=== PATIENT | female | born 1995 | race Caucasian/White ===

== ENCOUNTER 2020-10-28 21:04 | Emergency (ER) | payer MEDICAID, SELFPAY ==
--- NOTE | ~2020-10-28 | XR_ITS ---
EXAMINATION: XR CHEST CLINICAL INFORMATION: Chest pain status post vomiting COMPARISON: 03/30/2012 TECHNIQUE: Frontal view of the chest was obtained. FINDINGS: No significant abnormality is noted involving the heart, lungs, mediastinum, bony thorax or soft tissues. XR/XR chest 1V IMPRESSION: Unremarkable examination.
[2020-10-28 21:07] VITALS: BP 127/68; PULSE 120; RESP 18; TEMP 36.4; O2SAT 100; BMI 31.1
[2020-10-28 22:05] VITALS: BP 113/73; PULSE 94; RESP 22; TEMP 37.1; O2SAT 99
--- NOTE | 2020-10-28 22:22 | ED.ALLEREA ---
HPI - Allergic Reaction General Chief complaint: Allergic Reaction Stated complaint: allergic reaction to vape pen Time Seen by Provider: 10/28/20 22:22 Source: patient Mode of arrival: ambulatory Limitations: no limitations History of Present Illness HPI narrative: 25 y/o female presenting with vomiting and chest tingling after she used a vape pen about 2 hours ago. She states immediately after she inhaled she coughed excessively and felt nauseated. She went and threw up 4 times. She has tingling in her face, chest and neck and she generally felt unwell. She does not vape very often but she has never had a reaction like this before. No one else smoked this vape pen. It was a new flavor and new concentration. She denies any other drug use. MD complaint: allergic reaction Onset (ago): hour(s) (2) Exposure: other (marijuana vape pen) Symptoms: nausea and vomiting Severity: moderate Treatment prior to arrival: none Previous Allergic Reaction History: none Related Data Allergies Allergy/AdvReac Type Severity Reaction Status Date / Time No Known Allergies Allergy Verified 10/28/20 22:47 Review of Systems Review of Systems: Constitutional: No Fever, No Chills ENT/Mouth: No sore throat, No Rhinorrhea, No Swallowing Difficulty Eyes: No Eye Pain, No Swelling, + Redness Cardiovascular: + Chest Pain, + SOB, No Orthopnea, No Edema Respiratory: No Cough, No Sputum, No Wheezing, No dyspnea Gastrointestinal: + Nausea, + Vomiting, No Diarrhea, No abdominal Pain Musculoskeletal: No joint pain, No Myalgias Skin: No Skin Lesions, No rash Neuro: No Weakness, No Numbness, No Dizziness, + Headache Psych: + Anxiety/Panic, No Depression Heme/Lymph: No Bruising, No Lymphadenopathy Endocrine: No Polyuria, No Polydipsia PMFSH Past Medical History Attestation statement: The following information was validated with the patient. Medical History No acute medical problems Social History Social History Alcohol intake: never Patient Tobacco Use Status: Never used Tobacco Use of substances other than those prescribed or required for medical reasons: Yes Substance Use Type: Marijuana Advance Directives: No Advance Directives Information Provided: No Patient : No Physical Exam Vital Signs: Vital Signs: Last Vital Signs Temp 98.8 F 10/28/20 22:05 Pulse 100 06/20/21 22:43 Resp 16 10/28/20 22:43 BP 103/65 10/28/20 22:43 Pulse Ox 100 10/28/20 22:43 Body Mass Index 31.1 Appearance: Alert. Oriented X3. No acute distress. Eyes: Pupils equal, round and reactive to light. Sclera are injected ENT: Pharynx normal. Neck: Normal inspection. Neck supple. CVS: Normal heart rate and rhythm. Pulses normal. Anterior chest wall tenderness throughout Respiratory: No respiratory distress. Breath sounds normal. Abdomen: Soft and nontender. +BS x4 Skin: Skin warm and dry. Normal skin color. Normal skin turgor. No rashes. Extremities: No lower extremity edema. Neuro: Oriented X 3. No motor deficit. No sensory deficit. Course Course Course Narrative: 25 y/o female presenting with N/V and chest pain that started immediately after she smoked a new vape pen called [employer]. Her symptoms are starting to improve. She is non-toxic appearing and speaking in full sentences. She reports some ongoing chest discomfort and headache. mild nausea. Will get CXR and give dose of SL zofran and tylenol. Will closely monitor and reassess. Reevaluation(s) Reevaluation #1: Symptomatically significantly improved. She is stable for discharge home. Counseled on marijuana use. Discharge Plan Discharge Clinical Impression: Adverse reaction to drug Qualifiers: Encounter type: initial encounter Qualified Code(s): T50.905A - Adverse effect of unspecified drugs, medicaments and biological substances, initial encounter Patient Disposition: Home, Self-Care Additional Instructions: Your chest x-ray was normal. Your symptoms are a direct results of the vape pen. Strongly advise against using this again in the future. Follow up with your doctor as needed.
[2020-10-28 22:43] VITALS: BP 103/65; PULSE 100; RESP 16; O2SAT 100
[2020-10-28 23:54] VITALS: BP 105/67; PULSE 97; RESP 16; O2SAT 99
== END 2020-10-29 00:15 | disposition home or self-care (01) ==
PROVIDERS: Emergency Provider Student in an Organized Health Care Education/Training Program
DX: U07.0 Vaping-related disorder (principal); R11.2 Nausea with vomiting, unspecified; F12.90 Cannabis use, unspecified, uncomplicated
CPT/HCPCS: 71045; 99283; 99284

== ENCOUNTER 2021-06-11 09:32 | Emergency (ER) | payer MEDICAID, SELFPAY ==
--- NOTE | ~2021-06-11 | XR_ITS ---
EXAMINATION: XR CHEST CLINICAL INFORMATION: Chest pain COMPARISON: None TECHNIQUE: 2 views of the chest were obtained. FINDINGS: No significant abnormality is noted involving the heart, lungs, mediastinum, bony thorax or soft tissues. XR/XR chest 2V IMPRESSION: Unremarkable chest examination.
--- NOTE | 2021-06-11 09:33 | ECG_ITS ---
Test Reason : chest pain Blood Pressure : / mmHG Vent. Rate : 089 BPM Atrial Rate : 089 BPM P-R Int : 148 ms QRS Dur : 082 ms QT Int : 380 ms P-R-T Axes : 064 054 073 degrees QTc Int : 462 ms Normal sinus rhythm Normal ECG No significant changes when compared with the previous EKG of 15 july 2016 Referred By: Generic ED Physician Electronically Signed By:CECILIA FREED
[2021-06-11 10:44] VITALS: BP 110/72; PULSE 85; RESP 18; TEMP 36.5; O2SAT 98; BMI 28.2
[2021-06-11 10:58] LABS: MANUAL DIFF FLAG NO
[2021-06-11 11:01] LABS: Basophils Absolute Auto 0.1 X10*3/uL (0.0-0.2); Basophils Percent Auto 0.8 % (0-2); Eosinophils Absolute Auto 0.1 X10*3/uL (0.0-0.4); Eosinophils Percent Auto 1.5 % (0-4); Hematocrit 40.3 % (37.0-47.0); Hemoglobin 13.7 g/dl (12.0-16.0); Imm Gran Abs Auto 0.01 X10*3/uL (0.00-0.03); Imm Gran Pct Auto 0.2 % (0.0-0.4); Lymphocytes Absolute Auto 1.9 X10*3/uL (1.2-4.9); Lymphocytes Percent Auto 30.7 % (20-40); Mean Corpuscular Hemoglobin 29.3 pg (27.0-33.0); Mean Corpuscular Volume 86.3 fL (80.0-98.0); Mean Platelet Volume 11.2 fL (9.4-12.3); Monocytes Absolute Auto 0.6 X10*3/uL (0.1-1.2); Monocytes Percent Auto 9.6 % (2-11); Neutrophils Absolute Auto 3.5 x10*3/uL (2.0-8.3); Neutrophils Percent Auto 57.2 % (45-73); Platelet Count 219 X10*3/uL (160-400); Red Blood Count 4.67 X10*6/uL (4.20-5.50); Red Cell Distribution Width 12.3 % (11.0-16.0); White Blood Count 6.1 X10*3/uL (4.8-10.8)
[2021-06-11 11:19] LABS: COVID-19 Test Negative (Negative); IDNOW Serial# 9DD0AD1C; Troponin-I High Sensitivity < 3.5 ng/L (<3.5-17.0)
[2021-06-11 11:24] LABS: Alanine Aminotransferase 8 U/L (0-31); Alkaline Phosphatase 81 U/L (39-117); Anion Gap 9 (12-20); Aspartate Amino Transferase 21 U/L (5-31); Bilirubin Total 0.5 mg/dL (0.0-1.0); Blood Urea Nitrogen 6 mg/dL (9-16); Calcium 9.5 mg/dL (8.4-10.2); Carbon Dioxide 27 mmol/L (22-29); Chloride 107 mmol/L (96-108); Creatinine Clr Calc Pharmacy 120.7; Estimated Glomerular Filt Rate > 60; Glucose Random 91 mg/dL (60-115); Potassium 5.8 mmol/L (3.3-5.1); Sodium 137 mmol/L (135-145); Total Protein 7.9 g/dL (6.5-8.0)
--- NOTE | 2021-06-11 13:41 | ED_ITS ---
HPI - Chest Pain General Chief Complaint: Chest Pain Stated Complaint: CHEST PAIN Time Seen by Provider: 06/11/21 13:35 Source: patient Mode of arrival: ambulatory Limitations: no limitations History of Present Illness HPI narrative: Patient presents to ED for chest pain, also pleurisy described as chest pain on inspiration since yesterday. patient denies any coughing, fever, chills, leg swelling, calf pain, recent long travel, or having covid. patient states received covid vaccines including booster. Related Data Allergies Allergy/AdvReac Type Severity Reaction Status Date / Time No Known Allergies Allergy Verified 06/11/21 10:44 Review of Systems Verdana 4l Review of Systems: Verdana 4d chest wall pain. 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 Social History Social History Alcohol intake: never Patient Tobacco Use Status: Never used Tobacco Substance Use Type: Marijuana Advance Directives: No Advance Directives Information Provided: Yes Physical Exam Verdana 4l Vital Signs: Verdana 4d Verdana 4d Vital Signs: Verdana 4d Verdana 4Bd Last Vital Signs Verdana 4d [employer] New 4d [employer]orer New 4d Temp 98.3 F 06/11/21 14:08 [employer] New 4d Pulse 83 06/11/21 14:08 [employer] New 4d Resp 18 06/11/21 14:08 BP 110/78 06/11/21 14:08 Pulse Ox 100 06/11/21 14:08 BMI result Body Mass Index 28.2 Const: General: cooperative, healthy appearing, comfortable, no acute distress, well developed, alert, awake and Physically active Orientation/consciousness: patient oriented x3 HENMT: Head: Yes normal to inspection, Yes No palpable skull fracture present, Yes normocephalic, Yes atraumatic and No abrasion Eyes: General: appearance normal, both eyes and all related structures Neck: Neck: Yes normal visual inspection, Yes full ROM, Yes no lymphadenopathy, Yes no meningeal signs, Yes trachea midline, Yes supple, No anterior neck swelling and No tender Chest: Chest palpation & inspection: normal inspection of the chest Chest/axillae images: 1. positive for chest wall tenderness on palpation. negative for rash, ecchymosis, or crepitus Resp: Effort & Inspection: normal respiratory effort and able to speak in complete sentences Auscultation: clear to auscultation bilaterally Cardio: Jugular venous distension: no JVD Heart sounds: S1 normal heart sound present and S2 normal heart sound present GI: Inspection: Yes normal to inspection Palpation (GI): not firm, nontender, no guarding and not rigid : General: No CVA tenderness and Yes no CVA tenderness Back/Spine/Pelvis: Back: no CVA tenderness, No CVA tenderness and No back tenderness Skin: General skin exam: no rashes or lesions noted and elasticity normal Neuro: General: patient oriented x3, gait normal, no meningeal signs and CN's II-XI intact bilaterally Cranial nerves: Yes CN's II-XII intact bilaterally Extrem: General: Yes normal to inspection and Yes full ROM Psych: Appearance: grossly normal, well kempt and not disheveled Course Course Course Narrative: labs, EKG, chest xray, and covid ordered. Reevaluation(s) Reevaluation #1: Patient EKG, troponin, covid, chest xray, and D-dimer is negative. Perc Score is 0. Heart Score is 0. Patient is safe for discharge. Vital signs are stable. Diagnosis is costochondirits. Time: 18:50 MDM - Chest Pain MDM Narrative Medical decision making narrative: Costochondirits Lab Data Result diagrams: 06/11/21 10:52 06/11/21 14:06 Labs: Lab Results 06/11/21 06/11/21 06/11/21 Range/Units 10:52 10:52 10:52 WBC 6.1 (4.8-10.8) X10*3/uL RBC 4.67 (4.20-5.50) X10*6/uL Hgb 13.7 (12.0-16.0) g/dl Hct 40.3 (37.0-47.0) % MCV 86.3 (80.0-98.0) fL MCH 29.3 (27.0-33.0) pg MCHC 34.0 (31.0-35.0) g/dl RDW 12.3 (11.0-16.0) % Plt Count 219 (160-400) X10*3/uL MPV 11.2 (9.4-12.3) fL Immature Gran % (Auto) 0.2 (0.0-0.4) % Neut % (Auto) 57.2 (45-73) % Lymph % (Auto) 30.7 (20-40) % Pender % (Auto) 9.6 (2-11) % Eos % (Auto) 1.5 (0-4) % Baso % (Auto) 0.8 (0-2) % Lymph # (Auto) 1.9 (1.2-4.9) X10*3/uL Pender # (Auto) 0.6 (0.1-1.2) X10*3/uL Eos # (Auto) 0.1 (0.0-0.4) X10*3/uL Baso # (Auto) 0.1 (0.0-0.2) X10*3/uL Abs Immat Gran (auto) 0.01 (0.00-0.03) X10*3/uL Absolute Neuts (auto) 3.5 (2.0-8.3) x10*3/uL Absolute Nucleated RBC 0.000 (0.0-0.012) X10*3/uL Nucleated RBC % (auto) 0.0 (0.0-0.2) /100WBC PT (9.9-13.0) SEC INR (0.9-1.1) APTT (24.1-38.0) SEC D-Dimer High Sensitivty NG/ML Sodium 137 (135-145) mmol/L Potassium 5.8 H (3.3-5.1) mmol/L Chloride 107 (96-108) mmol/L Carbon Dioxide 27 (22-29) mmol/L Anion Gap 9 L (12-20) BUN 6 L (9-16) mg/dL Creatinine 0.77 (0.5-1.4) mg/dL Estim Creat Clear Calc 120.7 Estimated GFR > 60 Random Glucose 91 (60-115) mg/dL Calcium 9.5 (8.4-10.2) mg/dL Total Bilirubin 0.5 (0.0-1.0) mg/dL AST 21 (5-31) U/L ALT 8 (0-31) U/L Alkaline Phosphatase 81 (39-117) U/L Troponin I High Sens < 3.5 (<3.5-17.0) ng/L Total Protein 7.9 (6.5-8.0) g/dL Albumin 4.0 (3.5-5.0) g/dL COVID-19 ([facility]) (Negative) COVID-19 Clin Com 06/11/21 06/11/21 06/11/21 Range/Units 10:52 14:06 14:06 WBC (4.8-10.8) X10*3/uL RBC (4.20-5.50) X10*6/uL Hgb (12.0-16.0) g/dl Hct (37.0-47.0) % MCV (80.0-98.0) fL MCH (27.0-33.0) pg MCHC (31.0-35.0) g/dl RDW (11.0-16.0) % Plt Count (160-400) X10*3/uL MPV (9.4-12.3) fL Immature Gran % (Auto) (0.0-0.4) % Neut % (Auto) (45-73) % Lymph % (Auto) (20-40) % Pender % (Auto) (2-11) % Eos % (Auto) (0-4) % Baso % (Auto) (0-2) % Lymph # (Auto) (1.2-4.9) X10*3/uL Pender # (Auto) (0.1-1.2) X10*3/uL Eos # (Auto) (0.0-0.4) X10*3/uL Baso # (Auto) (0.0-0.2) X10*3/uL Abs Immat Gran (auto) (0.00-0.03) X10*3/uL Absolute Neuts (auto) (2.0-8.3) x10*3/uL Absolute Nucleated RBC (0.0-0.012) X10*3/uL Nucleated RBC % (auto) (0.0-0.2) /100WBC PT 12.6 (9.9-13.0) SEC INR 1.1 (0.9-1.1) APTT 33.5 (24.1-38.0) SEC D-Dimer High Sensitivty < 150 NG/ML Sodium (135-145) mmol/L Potassium 3.8 D (3.3-5.1) mmol/L Chloride (96-108) mmol/L Carbon Dioxide (22-29) mmol/L Anion Gap (12-20) BUN (9-16) mg/dL Creatinine (0.5-1.4) mg/dL Estim Creat Clear Calc Estimated GFR Random Glucose (60-115) mg/dL Calcium (8.4-10.2) mg/dL Total Bilirubin (0.0-1.0) mg/dL AST (5-31) U/L ALT (0-31) U/L Alkaline Phosphatase (39-117) U/L Troponin I High Sens (<3.5-17.0) ng/L Total Protein (6.5-8.0) g/dL Albumin (3.5-5.0) g/dL COVID-19 ([facility]) Negative (Negative) COVID-19 Clin Com See Note ECG Data ECG #1: Interpretation: Normal Sinus rhythm, VA interval 148, QRS 82, QTC is 462. negative stemi Discharge Plan Discharge Clinical Impression: Atypical chest pain, Pleurisy, Costochondral chest pain Patient Disposition: Home, Self-Care Instructions: Chest Pain (DC), Pleurisy (ED), Chest Wall Pain (ED) Additional Instructions: Your labs, EKG, chest xray, and covid came back normal. Return to the ED for worsening chest pain, shortness of breath, leg swelling, calf pain, coughing, up blood weakness, dizziness, or any other concerning symptoms. You can take motrin over the counter for chest wall pain. Please follow up with PCP. Stand Alone Forms: Work/School Release Discharge Date/Time: 06/11/21 15:55 Print Language: Urdu
[2021-06-11 14:08] VITALS: BP 110/78; PULSE 83; RESP 18; TEMP 36.8; O2SAT 100
[2021-06-11 14:20] LABS: INTERNATIONAL NORM RATIO 1.1 (0.9-1.1); Prothrombin Time 12.6 SEC (9.9-13.0)
[2021-06-11 14:22] LABS: Partial Thromboplastin Time 33.5 SEC (24.1-38.0); Potassium 3.8 mmol/L (3.3-5.1)
[2021-06-11 14:49] LABS: D Dimer High Sensitivity < 150 NG/ML
== END 2021-06-11 15:55 | disposition home or self-care (01) ==
PROVIDERS: Physician Assistant; Emergency Provider Emergency Medicine
DX: R07.89 Other chest pain (principal); R09.1 Pleurisy; M94.0 Chondrocostal junction syndrome [Tietze]; Z20.822 Contact with and (suspected) exposure to COVID-19
CPT/HCPCS: 36415; 71046; 80053; 84132; 84484; 85025; 85379; 85610; 85730; 87635; 93005; 99283

== ENCOUNTER 2021-08-08 07:10 | Emergency (ER) | payer MEDICAID, SELFPAY ==
[2021-08-08 07:16] VITALS: BP 129/71; PULSE 108; RESP 18; TEMP 37.7; O2SAT 97
[2021-08-08 07:39] LABS: Influenza A Negative (Negative); Influenza B2 Negative (Negative)
[2021-08-08 07:41] LABS: COVID-19 Test Negative (Negative); IDNOW Serial# 16C4AD1C
--- NOTE | 2021-08-08 07:48 | ED_ITS ---
HPI - General Adult General Chief complaint: Upper Respiratory Symptoms Stated complaint: Fever/Weakness Time Seen by Provider: 08/08/21 07:18 Source: patient Mode of arrival: ambulatory Limitations: no limitations History of Present Illness HPI narrative: Patient comes emergency room complaining of 1 day of nausea, vomiting, diarrhea, fever and chills. Patient denies coughing, no sore throat, no abdominal pain, no UTI symptoms Related Data Previous Rx's Medication Instructions Recorded ibuprofen 600 mg tablet 600 mg PO TID PRN #14 tab 08/08/21 ondansetron HCl 4 mg tablet 4 mg PO Q6H PRN #10 tab 08/08/21 Allergies Allergy/AdvReac Type Severity Reaction Status Date / Time No Known Allergies Allergy Verified 06/11/21 10:44 Review of Systems Review of Systems: Constitutional : No Weight loss, subjective fever, chills, No Night Sweats, No Fatigue, No Malaise ENT/Mouth : No Hearing loss, No Ear Pain, No Nasal Congestion, No Sinus Pain, No Hoarseness, No sore throat, No Rhinorrhea, No Swallowing Difficulty Eyes: No Eye Pain, No Swelling, No Redness, No Foreign Body, No Discharge, No Vision Changes Cardiovascular : No Chest Pain, No SOB, No Dyspnea on Exertion, No Orthopnea, No Edema, No Palpitations Respiratory : No Cough, No Sputum, No Wheezing, No Smoke Exposure, No Dyspnea Gastrointestinal : Complaining of nausea, vomiting and diarrhea. No Constipation, No abdominal Pain, No Hematochezia, No Melena Genitourinary : no irregular bleeding, No Dysuria, No Urinary Frequency, No Hematuria, No Urinary Incontinence, No Urgency, No Flank Pain, No Urinary Flow Changes, No Hesitancy Musculoskeletal : No joint pain, No Myalgias, No Joint Swelling Skin : No Skin Lesions, No rash Neuro : No Weakness, No Numbness, No Paresthesias, No Loss of Consciousness, No Dizziness, No Headache Psych : No Anxiety/Panic, No Depression, No SI/HI/AH/VH, No Social Issues, Heme/Lymph: No Bruising, No Bleeding,No Lymphadenopathy Endocrine : No Polyuria, No Polydipsia, No Temperature Intolerance [facility] Past Medical History 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 Oriented X3. No acute distress. Eyes: Pupils equal, round and reactive to light. ENT: Pharynx normal. Neck: Normal inspection. Neck supple. No lymph nodes noted. No crepitus CVS: Normal heart rate and rhythm. Pulses normal. Normal S1 and S2 Respiratory: No respiratory distress. Breath sounds normal. No Wheezing. No rales Abdomen: Soft and nontender. No rigidity. No distention. Skin: Skin warm and dry. Normal skin color. Normal skin turgor. Extremities: No lower extremity edema. No Lacerations. No Rash Neuro: Oriented X 3. No motor deficit. No sensory deficit. Moving all extremities. No slurred speech. CN 2 through 12 grossly intact Psych: calm, cooperative, normal affect Course Course Course Narrative: Flu/COVID test pending, CBC Chem pending, patient given p.o. Zofran and Tylenol Patient likely having a viral syndrome, no acute findings, flu and COVID test negative. test negative. Medical Decision Making Lab Data Result diagrams: 08/08/21 08:24 08/08/21 08:24 Labs: Lab Results 08/08/21 08/08/21 08/08/21 Range/Units 07:18 07:18 08:24 WBC 6.5 (4.8-10.8) X10*3/uL RBC 4.53 (4.20-5.50) X10*6/uL Hgb 13.4 (12.0-16.0) g/dl Hct 38.9 (37.0-47.0) % MCV 85.9 (80.0-98.0) fL MCH 29.6 (27.0-33.0) pg MCHC 34.4 (31.0-35.0) g/dl RDW 12.6 (11.0-16.0) % Plt Count 202 (160-400) X10*3/uL MPV 11.1 (9.4-12.3) fL Immature Gran % (Auto) 0.2 (0.0-0.4) % Neut % (Auto) 80.8 H (45-73) % Lymph % (Auto) 7.1 L (20-40) % Hancock % (Auto) 11.1 H (2-11) % Eos % (Auto) 0.2 (0-4) % Baso % (Auto) 0.6 (0-2) % Lymph # (Auto) 0.5 L (1.2-4.9) X10*3/uL Hancock # (Auto) 0.7 (0.1-1.2) X10*3/uL Eos # (Auto) 0.0 (0.0-0.4) X10*3/uL Baso # (Auto) 0.0 (0.0-0.2) X10*3/uL Abs Immat Gran (auto) 0.01 (0.00-0.03) X10*3/uL Absolute Neuts (auto) 5.2 (2.0-8.3) x10*3/uL Absolute Nucleated RBC 0.000 (0.0-0.012) X10*3/uL Nucleated RBC % (auto) 0.0 (0.0-0.2) /100WBC Sodium (135-145) mmol/L Potassium (3.3-5.1) mmol/L Chloride (96-108) mmol/L Carbon Dioxide (22-29) mmol/L Anion Gap (12-20) BUN (9-16) mg/dL Creatinine (0.5-1.4) mg/dL Estim Creat Clear Calc Estimated GFR Random Glucose (60-115) mg/dL Calcium (8.4-10.2) mg/dL Beta HCG, Quant mIU/mL COVID-19 ([facility]) Negative (Negative) COVID-19 Clin Com See Note Influenza Type A ([facility]) Negative (Negative) Influenza Type B ([facility]) Negative (Negative) Influenza A & B Note See Note 08/08/21 08/08/21 Range/Units 08:24 08:24 WBC (4.8-10.8) X10*3/uL RBC (4.20-5.50) X10*6/uL Hgb (12.0-16.0) g/dl Hct (37.0-47.0) % MCV (80.0-98.0) fL MCH (27.0-33.0) pg MCHC (31.0-35.0) g/dl RDW (11.0-16.0) % Plt Count (160-400) X10*3/uL MPV (9.4-12.3) fL Immature Gran % (Auto) (0.0-0.4) % Neut % (Auto) (45-73) % Lymph % (Auto) (20-40) % Hancock % (Auto) (2-11) % Eos % (Auto) (0-4) % Baso % (Auto) (0-2) % Lymph # (Auto) (1.2-4.9) X10*3/uL Hancock # (Auto) (0.1-1.2) X10*3/uL Eos # (Auto) (0.0-0.4) X10*3/uL Baso # (Auto) (0.0-0.2) X10*3/uL Abs Immat Gran (auto) (0.00-0.03) X10*3/uL Absolute Neuts (auto) (2.0-8.3) x10*3/uL Absolute Nucleated RBC (0.0-0.012) X10*3/uL Nucleated RBC % (auto) (0.0-0.2) /100WBC Sodium 138 (135-145) mmol/L Potassium 4.6 D (3.3-5.1) mmol/L Chloride 105 (96-108) mmol/L Carbon Dioxide 24 (22-29) mmol/L Anion Gap 14 (12-20) BUN 6 L (9-16) mg/dL Creatinine 0.82 (0.5-1.4) mg/dL Estim Creat Clear Calc 103.2 Estimated GFR > 60 Random Glucose 103 (60-115) mg/dL Calcium 9.3 (8.4-10.2) mg/dL Beta HCG, Quant < 2 mIU/mL COVID-19 ([facility]) (Negative) COVID-19 Clin Com Influenza Type A ([facility]) (Negative) Influenza Type B ([facility]) (Negative) Influenza A & B Note Discharge Plan Discharge Clinical Impression: Viral infection Patient Disposition: Home, Self-Care Instructions: Viral Syndrome (ED) Additional Instructions: Please follow-up with your primary care physician tomorrow. If you have any worsening or new symptoms, please return to the emergency room or call 911 Prescriptions: New ondansetron HCl 4 mg tablet 4 mg PO Q6H PRN (Reason: nausea and vomiting) Qty: 10 0RF ibuprofen 600 mg tablet 600 mg PO TID PRN (Reason: fever or pain) Qty: 14 0RF Stand Alone Forms: Work/School Release
[2021-08-08] MEDS: Ondansetron ODT 4 MG TAB.RAPDIS TRANSLINGU (08:08)
[2021-08-08] MEDS: Acetaminophen 325 MG TABLET 650 MG PO (08:08)
[2021-08-08 08:11] VITALS: BP 112/66; PULSE 99; RESP 16; TEMP 37.6; O2SAT 98; BMI 31.4
[2021-08-08 08:27] LABS: MANUAL DIFF FLAG NO
[2021-08-08 08:31] LABS: Basophils Percent Auto 0.6 % (0-2); Eosinophils Percent Auto 0.2 % (0-4); Hematocrit 38.9 % (37.0-47.0); Hemoglobin 13.4 g/dl (12.0-16.0); Imm Gran Abs Auto 0.01 X10*3/uL (0.00-0.03); Imm Gran Pct Auto 0.2 % (0.0-0.4); Lymphocytes Absolute Auto 0.5 X10*3/uL (1.2-4.9); Lymphocytes Percent Auto 7.1 % (20-40); Mean Corpuscular HGB Conc 34.4 g/dl (31.0-35.0); Mean Corpuscular Hemoglobin 29.6 pg (27.0-33.0); Mean Corpuscular Volume 85.9 fL (80.0-98.0); Mean Platelet Volume 11.1 fL (9.4-12.3); Monocytes Absolute Auto 0.7 X10*3/uL (0.1-1.2); Monocytes Percent Auto 11.1 % (2-11); Neutrophils Absolute Auto 5.2 x10*3/uL (2.0-8.3); Neutrophils Percent Auto 80.8 % (45-73); Platelet Count 202 X10*3/uL (160-400); Red Blood Count 4.53 X10*6/uL (4.20-5.50); Red Cell Distribution Width 12.6 % (11.0-16.0); White Blood Count 6.5 X10*3/uL (4.8-10.8)
[2021-08-08 08:43] LABS: Anion Gap 14 (12-20); Blood Urea Nitrogen 6 mg/dL (9-16); Calcium 9.3 mg/dL (8.4-10.2); Carbon Dioxide 24 mmol/L (22-29); Chloride 105 mmol/L (96-108); Creatinine Clr Calc Pharmacy 103.2; Estimated Glomerular Filt Rate > 60; Glucose Random 103 mg/dL (60-115); Potassium 4.6 mmol/L (3.3-5.1); Sodium 138 mmol/L (135-145)
[2021-08-08 08:49] LABS: HCG Quantitative < 2 mIU/mL
== END 2021-08-08 09:34 | disposition home or self-care (01) ==
PROVIDERS: Emergency Provider Emergency Medicine
DX: B34.9 Viral infection, unspecified (principal); Z20.822 Contact with and (suspected) exposure to COVID-19; R50.9 Fever, unspecified
CPT/HCPCS: 36415; 80048; 84702; 85025; 87502; 87635; 99283; 99284

== ENCOUNTER 2022-05-09 06:19 | Emergency (ER) | payer MEDICAID, SELFPAY ==
--- NOTE | ~2022-05-09 | XR_ITS ---
EXAMINATION: XR CHEST CLINICAL INFORMATION: Cough and fever COMPARISON: None TECHNIQUE: 2 views of the chest were obtained. FINDINGS: No significant abnormality is noted involving the heart, lungs, mediastinum, bony thorax or soft tissues. XR/XR chest 2V IMPRESSION: Unremarkable chest examination.
[2022-05-09 06:24] VITALS: BP 115/84; PULSE 115; RESP 20; TEMP 36.6; O2SAT 97; BMI 30.2
[2022-05-09 06:42] LABS: Strep A Nucleic Acid Negative (Negative)
[2022-05-09 06:52] LABS: IDNOW Serial# 16C4AD1C; Influenza A Negative (Negative); Influenza B2 Negative (Negative)
[2022-05-09 06:53] LABS: COVID-19 Test Negative (Negative); IDNOW Serial# BCCEAD1C
--- NOTE | 2022-05-09 08:04 | ED.URI ---
HPI - URI/Sore Throat General Chief Complaint: Upper Respiratory Symptoms Stated Complaint: Cough Time Seen by Provider: 05/09/22 08:04 Source: patient Mode of arrival: ambulatory Limitations: no limitations History of Present Illness HPI Narrative: 26-year-old female presents to the ER for evaluation of worsening flu-like symptoms since last week. She states her symptoms have been going on for 1 week and worsening. She is coughing a lot, having difficulty sleeping. She states her bilateral lower ribs are very sore from coughing. She has a sore throat, headache, body aches. MD elicited complaint: cough, sore throat and nasal congestion Onset (ago): week(s) (1) Consistency: progressively worsening Severity: moderate Description of mucous: clear and watery Able to tolerate fluids by mouth: Yes Exacerbating factors: deep breaths and supine positioning Relieving factors: nothing Associated symptoms: myalgias, rhinorrhea, nasal congestion, sore throat, cough, chest pain and shortness of breath Treatments prior to arrival: none Related Data Previous Rx's Medication Instructions Recorded ibuprofen 600 mg tablet 600 mg PO TID PRN fever or pain 08/08/21 #14 tabs ondansetron HCl 4 mg tablet 4 mg PO Q6H PRN nausea and 08/08/21 vomiting #10 tabs hydrocodone-homatropine 5 mg-1.5 5 ml PO Q4-6H PRN cough #60 mL 05/09/22 mg/5 mL (5 mL) oral syrup (Hycodan) Allergies Allergy/AdvReac Type Severity Reaction Status Date / Time No Known Allergies Allergy Verified 05/09/22 06:26 Review of Systems Review of Systems: Constitutional: No Fever, No Chills ENT/Mouth: + sore throat, + Rhinorrhea, No Swallowing Difficulty Eyes: No Eye Pain, No Swelling, No Redness Cardiovascular: + Chest Pain, No SOB, No Orthopnea, No Edema Respiratory: + Cough, No Sputum, No Wheezing, No dyspnea Gastrointestinal: No Nausea, No Vomiting, No Diarrhea, No abdominal Pain Musculoskeletal: No joint pain, +Myalgias Skin: No Skin Lesions, No rash Neuro: No Weakness, No Numbness, No Dizziness, + Headache Heme/Lymph: No Bruising, No Lymphadenopathy PMFSH Past Medical History 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 Oriented X3. No acute distress. Eyes: Pupils equal, round and reactive to light. ENT: Pharynx normal. Moist mucus membranes, tonsillomegaly without exudate. uvula midline, normal voice, handling secretions normally. Neck: Normal inspection. Neck supple. CVS: Normal heart rate and rhythm. Pulses normal. Respiratory: No respiratory distress. Breath sounds normal. Abdomen: Soft and nontender. +BS x4 Skin: Skin warm and dry. Normal skin color. Normal skin turgor. No rashes. Extremities: No lower extremity edema. Neuro: Oriented X 3. Grossly normal Course Course Course Narrative: 26 yo female presenting with 1 week of worsening flu like symptoms. Coughing keeping her up at night. Vital signs are stable and physical exam is unremarkable, lungs are clear. Chest x-ray is normal. She is negative for COVID, flu, RSV and strep throat. Most likely other viral etiology. We discussed the diagnosis and management. She is stable for discharge home with antitussive, work note provided per request. All questions answered, stable for MS Medical Decision Making Lab Data Labs: Lab Results 05/09/22 05/09/22 05/09/22 Range/Units 06:28 06:28 06:28 COVID-19 ([facility]) Negative (Negative) COVID-19 Clin Com See Note Influenza Type A ([facility]) Negative (Negative) Influenza Type B ([facility]) Negative (Negative) Influenza A & B Note See Note S. pyogenes GrpA [facility] Negative (Negative) Discharge Plan Discharge Clinical Impression: Viral infection Patient Disposition: Home, Self-Care Instructions: Viral Syndrome (ED) Additional Instructions: You tested negative for Strep throat, COVID, Flu, and RSV. Your chest x-ray was normal. Your symptoms are most likely due to another viral illness. Treatment is rest and supportive care. Drink plenty of fluids. Take the prescribed cough medication as needed - do not drive after taking it, it can make you drowsy Do not go out in public while you are not feeling well. Take over the counter cold/flu medications as needed for your symptoms. Take Tylenol and/or Motrin as needed for fevers and body aches. Follow up with your doctor this week. If you shortness of breath worsens, if you develop difficulty breathing or any other concerning symptom come back to the ER for further evaluation. Prescriptions: New hydrocodone-homatropine [Hycodan] 5-1.5 mg/5 mL (5 mL) syrup 5 ml PO Q4-6H PRN (Reason: cough) Qty: 60 0RF Rx Instructions: Partial Fill upon patient request. No Action ondansetron HCl 4 mg tablet 4 mg PO Q6H PRN (Reason: nausea and vomiting) Qty: 10 0RF ibuprofen 600 mg tablet 600 mg PO TID PRN (Reason: fever or pain) Qty: 14 0RF Stand Alone Forms: Work/School Release Interventions: ED Discharge Assessment Last Done: 05/09/22 09:02
[2022-05-09 08:10] VITALS: BP 117/74; PULSE 88; RESP 18; TEMP 36.8; O2SAT 98
== END 2022-05-09 09:04 | disposition home or self-care (01) ==
PROVIDERS: Emergency Provider Student in an Organized Health Care Education/Training Program
DX: R05.9 Cough, unspecified (principal); R07.89 Other chest pain; M79.10 Myalgia, unspecified site; Z20.822 Contact with and (suspected) exposure to COVID-19; Z79.899 Other long term (current) drug therapy
CPT/HCPCS: 71046; 87502; 87635; 87651; 99283

== ENCOUNTER 2023-02-18 19:14 | Outpatient (REF) | payer SELFPAY | END 2023-02-18 19:15 | disposition home or self-care (01) | LOC: HO.HHCLNP 19:14 | PROVIDERS: Visit Provider General Practice | DX: Z12.4 Encounter for screening for malignant neoplasm of cervix (principal) | CPT/HCPCS: 0353U; 81513; 88142 ==

== ENCOUNTER 2023-07-30 10:08 | Outpatient (REF) | payer MEDICAID, SELFPAY ==
[2023-07-30 12:42] LABS: Free T4 (Free Thyroxine) 0.79 ng/dL (0.71-1.85); Thyroid Stimulating Hormone 5.01 uIU/mL (0.32-4.0)
== END 2023-07-30 10:09 | disposition home or self-care (01) ==
LOC: HO.HHCL 10:08
PROVIDERS: Visit Provider Family Medicine
DX: E03.9 Hypothyroidism, unspecified (principal)
CPT/HCPCS: 36415; 84439; 84443

== ENCOUNTER 2023-08-31 16:19 | Outpatient (REF) | payer MEDICAID, SELFPAY ==
[2023-08-31 17:56] LABS: HCG Quantitative < 2 mIU/mL
== END 2023-08-31 16:20 | disposition home or self-care (01) ==
LOC: HO.HHCL 16:19
PROVIDERS: Visit Provider General Practice
DX: N92.6 Irregular menstruation, unspecified (principal)
CPT/HCPCS: 36415; 84702

== ENCOUNTER 2023-09-16 15:16 | Outpatient (AMB) | payer MEDICAID, SELFPAY ==
--- NOTE | 2023-09-16 15:20 | MHC.OFFVIS ---
Vital Signs 09/16/23 15:21 Height 5 ft 2 in Weight 174 lb 2.643 oz BMI 31.9 BP 111/79 Blood Pressure Location Lt brachial Position Sitting Pulse 81 Intake Visit Reasons: Abdominal Pains/Bloating Intake Note: Kasey presents in the office as a new patient for abdominal pains and bloating. CC: She has pains and bloating in the stomach. She will rarely have a bowel movement. Sometimes in the AM and she said ever since her c section 5 years ago she is unable to even pass a fart. She states it could go between 2 week + for her to have some sort of a bowel movement. Denies blood when she has a BM. 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 Reports onset almost a year ago. Occurs randomly through the day including post prandial. Lasts almost 3-4 hours. Avoiding dairy but did not help. No abd pain, N,V. No changes in bowel habits but does have chronic constipation ongoing for years. Reports can have go even a week without a BM. No unintentional weight loss. No blood in stool. 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 Social History Alcohol intake: never Patient Tobacco Use Status: Never used Tobacco Substance Use Type: Marijuana Review of Systems Const All systems reviewed & are unremarkable except as noted in HPI and below Physical Exam Vital Signs: Last Vital Signs Pulse 81 09/16/23 15:21 BP 111/79 09/16/23 15:21 BMI result Body Mass Index 31.9 No apparent distress Nonicteric Abdomen soft, nondistended Alert and oriented x3, normal gait Assessment & Plan Assessment & Plan (1) Bloating: Code(s): R14.0 - Abdominal distension (gaseous) Category: Medical (2) Chronic constipation: Code(s): K59.09 - Other constipation Category: Medical Plan Discussed with the pt that bloating could be a combination of aerophagia and constipation leading to IMO. Other ddx include celiac. Will check labs as below for anemia and celiac. In the meantime, advised lifestyle measures to avoid excessive aerophagia Management of constipation with increasedc soluble fiber intake, and combination of stimulant and osmotic laxative Exam also with mild diastasis recti and may benefit from core strenghtnening exercise to reduce abd bloating Follow up 4 months Orders: Orders Immunoglobulin A 09/16/23 R14.0 - Abdominal distension (gaseous) Transglutaminase IgA 09/16/23 R14.0 - Abdominal distension (gaseous) Complete Blood Count no Diff 09/16/23 R14.0 - Abdominal distension (gaseous) Patient Instructions: 1. Labs 2. Avoid smoking, sodas - both of these can worsen bloating 3. Treatment of constipation - start fiber supplementation, take senna and miralax in morning. Once you start having regular bowel movements, you may dsicontinue senna and cont miralax only. This can then be further adjusted. 4. Core exercises Coding Level of Care Code New Pt Level 4 (36524) Diagnoses Bloating R14.0 Chronic constipation K59.09
[2023-09-16 15:21] VITALS: BP 111/79; PULSE 81; BMI 31.9
== END 2023-09-16 15:53 | disposition home or self-care (01) ==
PROVIDERS: Referring Provider General Practice; Visit Provider Internal Medicine
DX: R14.0 Abdominal distension (gaseous) (principal); K59.09 Other constipation
CPT/HCPCS: 99204

== ENCOUNTER 2023-09-16 15:16 | Outpatient (REF) | payer MEDICAID, SELFPAY ==
[2023-09-16 18:55] LABS: Hematocrit 40.5 % (37.0-47.0); Hemoglobin 13.6 g/dl (12.0-16.0); Mean Corpuscular HGB Conc 33.6 g/dl (31.0-35.0); Mean Corpuscular Hemoglobin 29.6 pg (27.0-33.0); Mean Corpuscular Volume 88.2 fL (80.0-98.0); Mean Platelet Volume 11.4 fL (9.4-12.3); Platelet Count 291 X10*3/uL (160-400); Red Blood Count 4.59 X10*6/uL (4.20-5.50); White Blood Count 9.5 X10*3/uL (4.8-10.8)
[2023-09-18 16:19] LABS: Immunoglobulin A 564 mg/dL (47-310)
[2023-09-18 22:28] LABS: Transglutaminase IgA <1.0 U/mL
== END 2023-09-16 15:17 | disposition home or self-care (01) ==
LOC: HO.LAB 15:16
PROVIDERS: PCP General Practice; Visit Provider Internal Medicine
DX: R14.0 Abdominal distension (gaseous) (principal)
CPT/HCPCS: 36415; 82784; 85027; 86364; 99202

== ENCOUNTER 2023-11-11 10:14 | Outpatient (REF) | payer MEDICAID, SELFPAY ==
[2023-11-11 14:01] LABS: TSH reflex Free T4 6.48 uIU/mL (0.32-4.0)
[2023-11-11 14:38] LABS: Free T4 (Free Thyroxine) 0.99 ng/dL (0.71-1.85)
== END 2023-11-11 10:15 | disposition home or self-care (01) ==
LOC: HO.HHCL 10:14
PROVIDERS: Visit Provider Advanced Practice Midwife
DX: E03.9 Hypothyroidism, unspecified (principal)
CPT/HCPCS: 36415; 84439; 84443

== ENCOUNTER 2023-12-02 15:18 | Outpatient (REF) | payer MEDICAID, SELFPAY ==
[2023-12-02 17:08] LABS: Rheumatoid Factor < 13.0 IU/mL (<15.0)
[2023-12-03 14:38] LABS: Cyclic Citrullinated Peptide <16 UNITS
[2023-12-07 14:13] LABS: Anti Nuclear Antibody Screen NEGATIVE (NEGATIVE)
== END 2023-12-02 15:19 | disposition home or self-care (01) ==
LOC: HO.HHCL 15:18
PROVIDERS: Visit Provider General Practice
DX: R76.8 Other specified abnormal immunological findings in serum (principal)
CPT/HCPCS: 36415; 86038; 86200; 86431

== ENCOUNTER 2024-01-20 16:08 | Outpatient (REF) | payer MEDICAID, SELFPAY ==
[2024-01-21 06:09] LABS: CT PCR NOT DETECTED (Not Detect.); NG PCR NOT DETECTED (Not Detect.)
== END 2024-01-20 16:09 | disposition home or self-care (01) ==
LOC: HO.LNP 16:08
PROVIDERS: Visit Provider Advanced Practice Midwife
DX: N93.9 Abnormal uterine and vaginal bleeding, unspecified (principal); Z11.3 Encounter for screening for infections with a predominantly sexual mode of transmission
CPT/HCPCS: 87491; 87591

== ENCOUNTER 2024-01-27 10:14 | Outpatient (AMB) | payer MEDICAID, SELFPAY ==
--- NOTE | 2024-01-27 10:18 | MHC.OFFVIS ---
Vital Signs 01/27/24 10:20 Height 5 ft 2 in Weight 169 lb 12.095 oz BMI 31.0 BP 102/63 Blood Pressure Location Lt brachial Position Sitting Pulse 97 Intake Visit Reasons: 4 month follow up Intake Note: Kasey presents in the office as a 4 month follow up. CC: Noticed she has been getting more hunger - she states that her appetite has increased double. Allergies No Known Allergies Allergy (Verified 09/16/23 15:23) HPI Comments Details: 28 y.o F with no significant PMH who is here for abd bloating. Reports onset almost a year ago. Occurs randomly through the day including post prandial. Lasts almost 3-4 hours. Avoiding dairy but did not help. No abd pain, N,V. No changes in bowel habits but does have chronic constipation ongoing for years. Reports can have go even a week without a BM. No unintentional weight loss. No blood in stool. 01/27/24: Bloating is better. Changed her diet that she feels like has helped her the most. Constipation is more or less unchanged. Tried miralax for 3 weeks. 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 Social History Alcohol intake: never Patient Tobacco Use Status: Never used Tobacco Substance Use Type: Marijuana Review of Systems Const All systems reviewed & are unremarkable except as noted in HPI and below Physical Exam Vital Signs: Last Vital Signs Pulse 97 01/27/24 10:20 BP 102/63 01/27/24 10:20 BMI result Body Mass Index 31.0 No apparent distress Nonicteric Abdomen soft, nondistended Alert and oriented x3, normal gait Assessment & Plan Assessment & Plan (1) Bloating: Code(s): R14.0 - Abdominal distension (gaseous) Category: Medical (2) Chronic constipation: Code(s): K59.09 - Other constipation Category: Medical (3) Hypothyroid: Code(s): E03.9 - Hypothyroidism, unspecified Category: Medical Plan Bloating resolved. Pt interested in furhter dietary changes and specifically learning about macros for better satiety. 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 For constipation, reviewed that hypothyroidism is likely contributing to it as well. Recently had dose increased by her PCP and has labs pending next month to re-assess. Also advised to add senna PRN for stimulant effect. Miralax can be uptitrated to even BID for desired effect. Start soluble fiber as previously discussed. Instructions were also given in writing. Follow up PRN Patient Instructions: - Add senna 2 tabs in the morning - Add fiber supplement 1-2 tsp mixed in 8 oz of water - Cont miralax - Discuss thyroid management with your PCP Coding Level of Care Code Est Pt Level 4 (75644) Diagnoses Bloating R14.0 Chronic constipation K59.09 Hypothyroid E03.9
[2024-01-27 10:20] VITALS: BP 102/63; PULSE 97; BMI 31.0
== END 2024-01-27 10:57 | disposition home or self-care (01) ==
PROVIDERS: PCP General Practice; Referring Provider General Practice; Visit Provider Internal Medicine
DX: R14.0 Abdominal distension (gaseous) (principal); K59.09 Other constipation; E03.9 Hypothyroidism, unspecified
CPT/HCPCS: 99214

== ENCOUNTER → 2024-01-27 10:14 | Outpatient (BNVA) | payer MEDICAID, SELFPAY | PROVIDERS: PCP General Practice; Visit Provider Internal Medicine | DX: R14.0 Abdominal distension (gaseous) (principal); K59.04 Chronic idiopathic constipation; E03.9 Hypothyroidism, unspecified | CPT/HCPCS: 99212 ==

== ENCOUNTER → 2024-03-22 07:23 | Outpatient (REF) | payer MEDICAID, SELFPAY ==
--- NOTE | 2024-03-22 07:27 | HM_ITS ---
Conclusion: 1. Patient was monitored for total period of 2 days 2. Baseline was normal sinus rhythm with average heart rate of 92 beats per minute 3. No significant pauses noted but frequent sinus tachycardia noted with 29% of time heart rate about 100 beats per minute 4. No significant arrhythmias noted 5. Patient marked the counter 18 times with no diary submitted, correlating with sinus rhythm MTDD
== END ==
LOC: HO.CARD 07:23
PROVIDERS: PCP General Practice; Visit Provider General Practice
DX: R00.2 Palpitations (principal)
CPT/HCPCS: 93225

== ENCOUNTER → 2024-03-22 07:27 | Outpatient (BNV) | payer MEDICAID, SELFPAY | PROVIDERS: PCP General Practice; Visit Provider Internal Medicine Cardiovascular Disease | DX: R00.0 Tachycardia, unspecified (principal) | CPT/HCPCS: 93227 ==

== ENCOUNTER 2024-06-01 08:32 | Outpatient (AMB) | payer MEDICAID, SELFPAY ==
--- NOTE | 2024-06-01 08:33 | A.OFFVIS_ITS ---
Intake Visit Reasons: 4 mo f/u Bloating Intake Note: Kasey presents in the office as a 4 month follow up abdominal pains. CC: states that she has bloating still - here and there she will have some pains but denies irregular bowel movements. Allergies No Known Allergies Allergy (Verified 06/01/24 08:33) HPI Comments Details: 28 y.o F with no significant PMH who is here for abd bloating. Reports onset almost a year ago. Occurs randomly through the day including post prandial. Lasts almost 3-4 hours. Avoiding dairy but did not help. No abd pain, N,V. No changes in bowel habits but does have chronic constipation ongoing for years. Reports can have go even a week without a BM. No unintentional weight loss. No blood in stool. 01/27/24: Bloating is better. Changed her diet that she feels like has helped her the most. Constipation is more or less unchanged. Tried miralax for 3 weeks. 06/01/24: Here for video televisit. Reports bloating and constipation much improved. These days are bit off because she is not following low fodmap diet as she is sick with an ear infection and a URI and trying to eat whatever she can. Levothyroxine increased by PCP. 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 medical problems Social History Alcohol intake: never Patient Tobacco Use Status: Never used Tobacco Substance Use Type: Marijuana Review of Systems Const All systems reviewed & are unremarkable except as noted in HPI and below Physical Exam Vital Signs: Video visit: No acute distress cough and coryza No icterus noted No facial asymmetry Speaking in full sentences Telehealth Telehealth [facility]health [facility] Location of provider rendering services: practice address Location of patient: address on file Patient Identification confirmed using: Name, : Yes Telehealth method: video Patient verbally consented to treatment: Yes Patient verbally consented to billing insurance company: Yes Patient informed of any privacy concerns related to visit: Yes Minutes spent on Phone/Video with Pt.: 6 Assessment & Plan Assessment & Plan (1) Bloating: Code(s): R14.0 - Abdominal distension (gaseous) Category: Medical (2) Chronic constipation: Code(s): K59.09 - Other constipation Category: Medical (3) Hypothyroid: Code(s): E03.9 - Hypothyroidism, unspecified Category: Medical Plan Overall sx better. No further GI issues. PRN follow up. Coding Level of Care Code Tele Est Pt Level 3 (56589) Diagnoses Bloating R14.0 Chronic constipation K59.09 Hypothyroid E03.9
--- OUTSIDE RECORDS SUMMARY | 2024-06-01 08:43 | XMS_ITS | Encounter Summary ---
Author Organization [employer] Address [address] [place] [address] Care Team Providers Care Undergraduate Advisor Name Role Phone Scarlett Berrios MD Primary Care Provider [phone] Encounter Details Date Type Department Care Team (Late Contact Info) Description 10/01/2022 Orders Only [facility] [address] [place] [id number] Scarlett Berrios MD [address] [place] [address] [phone] Hypothyroidism, unspecified type (Primary Dx) Social History Tobacco Use Types Packs/Day Years Used Date Smoking Tobacco: Never Smokeless Tobacco: Never Alcohol Use Standard Drinks/Week Comments Not Currently 0 (1 standard drink = 0.6 oz pur e alcohol) PHQ-2 Answer Date Recorded Patient Health Questionnaire-2 Score 0 08/06/2022 Comments Unknown Sex and Gender Information Value Date Recorded Sex Assigned at Female 03/10/2022 10:17 AM EDT Legal Sex Female 10:17 AM EDT Gender Identity Female 03/10/2022 10:17 AM EDT Sexual Orientation Straight 03/10/2022 10 :17 AM EDT documented as of this encounter Plan of Treatment Upcoming Encounters Date Type Department Care Team (Late Contact Info) Description 07/06/2024 11:30 AM EST Clinical Support [facility] [address] [place] [phone] documented as of this encounter Visit Diagnoses Diagnosis Hypothyroidism, unspecified type- Primary documented in this encounter Care Teams Undergraduate Advisor Relationship Specialty Start Date End Date Scarlett Berrios MD [address] [place] [address], [place] [address] PCP - General Family Medicine 01/02/22 documented as of this encounter
--- OUTSIDE RECORDS SUMMARY | 2024-06-01 08:43 | XMS_ITS | Clinical Summary ---
Author Organization [employer] Address [address] [place] [address] Care Team Providers Care Adjunct Professor Of Law Name Role Phone Scarlett Berrios MD Primary Care Provider [phone] Allergies No known active allergies Medications * This document contains information received from the source organization and may not represent a complete record from that organization. neomycin-polymy alexei-dexAMETHaso ne 0.1 % ointment Apply to upper eyelids twice a day. 3.5 g 1 02/25/20 23 Active fluticasone (Flonase) 50 MCG/ACT nasal spray SPRAY 2 SPRAYS INTO EACH NOSTRIL IN THE MORNING 48 mL 1 10/30/19 24 Active omeprazole (PriLOSEC) [address] capsule TAKE 1 CAPSULE (20 MG) BY MOUTH BEFORE BREAKFAST DO NOT CRUSH OR CHEW 90 capsule 1 10/30/19 24 025 Active medroxyPROGESTE Kendall (Depo-Provera) 150 MG/ML injection Inject 1 mL (150 mg) into the muscle every 3 (three) months. 1 mL 3 11/11/19 24 Active levothyroxine (Synthroid) 137 MCG tablet Take 137 mcg by mouth before breakfast. 90 tablet 3 12/02/19 24 025 Active sertraline (Zoloft) 50 MG tablet Take 1 tablet (50 mg) by mouth Once per day. 90 tablet 3 12/02/19 24 025 Active cetirizine (ZyrTEC) 10 MG tablet Take 1 tablet (10 mg) by mouth in the morning. 90 tablet 1 12/08/19 24 Active hydrocortisone 2.5 % cream Apply pea sized amount to skin bid for 1 week 15 g 12/08/19 24 Active Magnesium Oxide -Mg Supplement 400 MG capsuleIndicati ons:Chronic daily headache TAKE 1 CAPSULE BY MOUTH ONCE PER DAY. 90 capsule 3 03/30/20 24 Active riboflavin (True Vitamin B2) 100 MG tabletIndicatio ns:Chronic daily headache TAKE 1 TABLET BY MOUTH EVERY DAY 90 tablet 3 03/30/20 24 Active ibuprofen (IBU) 800 MG tabletIndicatio ns:Vertigo,Dora ntractable headache, unspecified chronicity pattern, unspecified headache type 1 tablet every 8 hours as needed for severe headache 21 tablet 05/03/20 24 Active ibuprofen (IBU) 800 MG tablet 1 tablet every 8 hours with food x 7 days. 21 tablet 01/20/20 24 024 Discontinued(Re order (will not trigger notification to Pharmacy)) meclizine (Antivert) 25 MG tabletIndicatio ns:Benign paroxysmal positional vertigo due to bilateral vestibular disorder Take 1 tablet (25 mg) by mouth if needed in the morning, at noon, and at bedtime for dizziness or nausea for up to 3 days. 9 tablet 04/28/20 24 024 Discontinued(Re order (will not trigger notification to Pharmacy)) meclizine (Antivert) 25 MG tabletIndicatio ns:Benign paroxysmal positional vertigo due to bilateral vestibular disorder Take 1 tablet (25 mg) by mouth if needed in the morning, at noon, and at bedtime for dizziness or nausea for up to 5 days. 15 tablet 05/03/20 24 024 meclizine (Antivert) 25 MG tabletIndicatio ns:Vertigo Take 1 tablet (25 mg) by mouth if needed in the morning, at noon, and at bedtime for dizziness for up to 10 days. 30 tablet 05/03/20 24 025 Hospital, Clinic, or Other Facility Administered Medication Ordered Dose Route Frequency Start Date End Date Status medroxyPROGESTERone (Depo-Provera) injection 150 mgIndications:Surveill ance for Depo-Provera contraception 150 mg IM Every 3 months 04/20/2024 07/14/2025 Active Active Problems Problem Noted Date Diagnosed Date Vertigo 05/03/2024 Assessment & Plan (05/03/2024 11:59 AM EST): Renew prn meclizine which pt finds helpful for vertigo symptoms Elevated immunoglobulin A 12/11/2023 Assessment & Plan (12/11/2023 10:48 AM EDT): Will workup autoimmune causes of elevated IgA, defer to Gi for GI related causes Encouraged calling to schedule followup with GI Nonintractable headache 07/30/2023 Assessment & Plan (05/03/2024 11:59 AM EST): Prn ibuprofen ordered, may take at onset of headache with food. Pt will update if headaches and vertigo worsen or fail to improve Abdominal bloating 07/30/2023 Assessment & Plan (07/31/2023 5:20 AM EDT): - r/o gastritis; H pylori stool antigen ordered. - Start Omeprazole 20 Mg once daily after submitting H. Pylori stool antigen test. - Avoid NSAIDs use. - Re-refer to GI. Bilateral impacted cerumen 07/30/2023 Assessment & Plan (07/30/2023 3:55 PM EDT): Bilateral ear irrigation completed using a 20mL curve tip syringe filled with 1/2 H2O, 1/2 H2O2 solution. Was able to remove all impacted cerumen. Bilateral tympanic membranes visualized and normal in appearance. Pt tolerated procedure well. Screening for cervical cancer 02/18/2023 Assessment & Plan (02/18/2023 4:19 PM EDT): Pap sent today Severe episode of recurrent major depressive disorder, without psychotic features 02/05/2023 Assessment & Plan (03/16/2024 12:08 PM EST): Continue Sertraline at 50mg daily Assessment & Plan (12/11/2023 10:49 AM EDT): Increase Sertraline to 50mg daily, if no further side effects and still needing more effect, can increase to 100mg after 4-6 weeks Assessment & Plan (09/01/2023 4:58 PM EDT): Continue Sertraline She will look for early loss support groups F/u with where she is on waiting list for OP therapy Assessment & Plan (02/22/2023 1:13 PM EDT): Patient addressed depressive symptoms, grief due to losing her baby and family problems. Lack of social supports, severe depression and recent miscarriage are leading to an increase of symptoms. Thoughts of self-harm and history of self- harm in the past per patient's report. Referral for OP services placed on 02/09/23 with [facility] ([phone]). Recommended adding self-care and mindfulness techniques into daily routine. At this time Kasey Mccartney meets criteria for Visit Diagnoses: Problem List Items Addressed This Visit Other Severe episode of recurrent major depressive disorder, without psychotic features (CMS/HCC) Family problems Grief associated with loss of fetus Patient ready to address current needs Yes Strengths include readiness to change PLAN: 1. Follow up with [facility]: Not recommended for follow-up 2. Patient goal is start individual therapy 3. Behavioral Recommendations a. OP BH referral (in progress) b. Incorporate mindfulness techniques and self-care into daily routine c. Continue taking medication to treat anxiety symptoms Assessment & Plan (02/06/2023 4:28 PM EDT): Patient addressed depressive symptoms, grief due to losing her baby and family problems. Lack of social supports, severe depression and recent miscarriage are leading to an increase of symptoms. Thoughts of self-harm and history of self- harm in the past per patient's report. Dicussed protective factors, safety plan, provided [facility] crisis line information. Plan is to referred pt to OP services and do follow-up BE's with clinician while waiting for referral. Consulted with provider for medication management. Recommended adding self-care and mindfulness techniques into daily routine. At this time Kasey Mccartney meets criteria for Visit Diagnoses: Problem List Items Addressed This Visit Other Severe episode of recurrent major depressive disorder, without psychotic features (CMS/HCC) Family problems Grief associated with loss of fetus Patient ready to address current needs Yes Strengths include readiness to change PLAN: 1. Follow up with [facility]: Recommended for follow-up: Pt will see clinician for follow-up BE's 2. Patient goal is process the loss of her baby and feel less depressed 3. Behavioral Recommendations a. OP individual therapy referral b. Start SSRIs to treat depression c. Follow-up BE's with clinician d. Incorporate self-care and mindfulness techniques into daily routine Family problems 02/05/2023 Assessment & Plan (02/22/2023 1:13 PM EDT): Patient addressed depressive symptoms, grief due to losing her baby and family problems. Lack of social supports, severe depression and recent miscarriage are leading to an increase of symptoms. Thoughts of self-harm and history of self- harm in the past per patient's report. Referral for OP services placed on 02/09/23 with [facility] ([phone]). Recommended adding self-care and mindfulness techniques into daily routine. At this time Kasey Mccartney meets criteria for Visit Diagnoses: Problem List Items Addressed This Visit Other Severe episode of recurrent major depressive disorder, without psychotic features (CMS/HCC) Family problems Grief associated with loss of fetus Patient ready to address current needs Yes Strengths include readiness to change PLAN: 1. Follow up with [facility]: Not recommended for follow-up 2. Patient goal is start individual therapy 3. Behavioral Recommendations a. OP BH referral (in progress) b. Incorporate mindfulness techniques and self-care into daily routine c. Continue taking medication to treat anxiety symptoms Grief associated with loss of fetus 02/05/2023 Assessment & Plan (02/22/2023 1:13 PM EDT): Patient addressed depressive symptoms, grief due to losing her baby and family problems. Lack of social supports, severe depression and recent miscarriage are leading to an increase of symptoms. Thoughts of self-harm and history of self- harm in the past per patient's report. Referral for OP services placed on 02/09/23 with [facility] ([phone]). Recommended adding self-care and mindfulness techniques into daily routine. At this time Kasey Mccartney meets criteria for Visit Diagnoses: Problem List Items Addressed This Visit Other Severe episode of recurrent major depressive disorder, without psychotic features (CMS/HCC) Family problems Grief associated with loss of fetus Patient ready to address current needs Yes Strengths include readiness to change PLAN: 1. Follow up with [facility]: Not recommended for follow-up 2. Patient goal is start individual therapy 3. Behavioral Recommendations a. OP referral (in progress) b. Incorporate mindfulness techniques and self-care into daily routine c. Continue taking medication to treat anxiety symptoms Assessment & Plan (02/18/2023 4:39 PM EDT): Continue Zoloft 25mg daily Seen by N after my exam Assessment & Plan (02/06/2023 4:28 PM EDT): Patient addressed depressive symptoms, grief due to losing her baby and family problems. Lack of social supports, severe depression and recent miscarriage are leading to an increase of symptoms. Thoughts of self-harm and history of self- harm in the past per patient's report. Dicussed protective factors, safety plan, provided [facility] crisis line information. Plan is to referred pt to OP services and do follow-up BE's with clinician while waiting for referral. Consulted with provider for medication management. Recommended adding self-care and mindfulness techniques into daily routine. At this time Kasey Mccartney meets criteria for Visit Diagnoses: Problem List Items Addressed This Visit Other Severe episode of recurrent major depressive disorder, without psychotic features (CMS/HCC) Family problems Grief associated with loss of fetus Patient ready to address current needs Yes Strengths include readiness to change PLAN: 1. Follow up with [facility]: Recommended for follow-up: Pt will see clinician for follow-up BE's 2. Patient goal is process the loss of her baby and feel less depressed 3. Behavioral Recommendations a. OP individual therapy referral b. Start SSRIs to treat depression c. Follow-up BE's with clinician d. 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 Megacolon, bowel injury, Crohn's/UC Labs for inflammation are negative Reschedule with GI for further workup, including gastric empyting study, potentially imaging and colonscopy Assessment & Plan (11/19/2022 7:33 AM EDT): CT scan from 2020 showed dilated rectum ? Megacolon, bowel injury, Crohn's/UC Labs for inflammation are negative Reschedule with GI for further workup, including gastric empyting study, potentially imaging and colonscopy Assessment & Plan (08/07/2022 3:00 PM EDT): CT scan from 2020 showed dilated rectum ? Megacolon, bowel injury, Crohn's/UC Labs for inflammation are negative Will refer to GI for further workup, including gastric empyting study, potentially imaging and colonscopy Encounter for screening exam ination for sexually transmitted disease 08/07/2022 Hypothyroid 07/24/2021 Assessment & Plan (03/16/2024 12:08 PM EST): Continue Synthroid to 137mcg daily and recheck Take apart from food and other medications Assessment & Plan (12/11/2023 10:45 AM EDT): Increase Synthroid to 137mcg daily and recheck in 3-6 months Take apart from food and other medications Assessment & Plan (07/31/2023 5:22 AM EDT): Last TSH was normal Currently on Synthroid 125mcg Assessment & Plan (11/19/2022 7:33 AM EDT): TSH 4.97 with normal T4 Can continue synthroid 125mcg will recheck TSH in 6-8 weeks with stripper printed circuit boards Assessment & Plan (08/07/2022 2:54 PM EDT): TSH 4.97 with normal T4 Can continue synthroid for now, and will recheck in 6 weeks to titrate thyroid hormone replacement, if necessary Abnormal uterine bleeding 07/24/2021 Assessment & Plan (08/07/2022 2:54 PM EDT): Irregular menses, two years after stopping Depo, no positive tests or miscarriages No hirsuitism, acne to suggest PCOS Has [facility] appointment September 08, 2022 Allergic rhinitis 04/01/2016 Assessment & Plan (07/31/2023 5:21 AM EDT): - Switch loratadine to cetrizine 10 mg and restart Flonase nasal spray prn. Scoliosis (and kyphoscoliosis), idiopathic 11/24 Encounters Date Type Department Care Team Description 05/03/2024 12:30 PM EST Telemedicine [address] [id number] Rae Colindres NP Vertigo (Primary Dx); Nonintractable headache, unspecified chronicity pattern, unspecified headache type 04/28/2024 9:40 AM EST Office Visit [facility] [address] [place] [id number] Jono Hobbs MD Hypothyroidism, unspecified type (Primary Dx); Benign paroxysmal positional vertigo due to bilateral vestibular disorder 04/28/2024 Telephone [facility] [address] [place] [id number] Aliza Soria, RN MSC triage 04/27/[address] [address] Brook Delgado, TOÑITO Nurse Triage 04/20/2024 11:00 AM EST Clinical Support [address] [address] Cindi Steele, TOÑITO Surveillance for Depo-Provera contraception 04/20/2024 Orders Only [address] [id number] Yanet Cristobal DO Surveillance for Depo-Provera contraception (Primary Dx) 04/20/2024 Travel 03/29/[address] [address] Scarlett Berrios MD Chronic daily headache 03/16/2024 10:15 AM EST Office Visit [facility] [address] [place] [address] Scarlett Berrios MD Chronic daily headache (Primary Dx); Palpitations; Elevated immunoglobulin A; Hypothyroidism, unspecified type; Severe episode of recurrent major depressive disorder, without psychotic features (CMS/HCC); Dyspnea on exertion 03/16/2024 Travel 03/07/2024 Patient Outreach [facility] [address] [place] [address] Scarlett Berrios MD Pre-visit Planning (SDCT screening completed on 11/24/2023) from Last 3 Months Immunizations Name Administration Dates Next Due DTaP 12/16/2001, 9,07/13/1998,04/20,1997 HPV, Quadrivalent 12/23/2012,05/08/2011,11/14/19 10 Hep A, ped/adol, 2 dose 01/02/2014,12/23/2012 Hep B, Adolescent or Pediatric 07/13/1998,1997,1997 Hib (HbO) 02/12/1999, 9,04/20/1998,11/09 IPV 09/02/2001, 9,04/20/1998,11/09 Influenza Injectable Quadriv alant Preservative Free IIV4 MDCK 02/19/2018 Influenza injectable quadriv alent preservative free 04/01/2016,02/27/2015 Influenza, Split (incl. yadira fied surface antigen) 06/11/2012 MMR 09/02/2001,08/31/1998 Meningococcal MCV4P ACYW-135 02/27/2015,11/14/19 10 Tdap 02/19/2018,11/13/2009 Varicella 01/02/2014,05/08/2011 Family History Medical History Relation Name Comments Diabetes Maternal Grandfather Heart disease Maternal Grandfather Hypertension Maternal Grandfather Hypothyroidism Mother's Sister Relation Name Status Comments Maternal Grandfather Mother's Sister Social History Tobacco Use Types Packs/Day Years Used Date Smoking Tobacco: Never Smokeless Tobacco: Never Tobacco Cessation:Counseling Given: Not Answered Alcohol Use Standard Drinks/Week Comments Not Currently 0 (1 standard drink = 0.6 oz pur e alcohol) Depression Answer Date Recorded Patient Health Questionnaire-9 Score 12 12/02/2023 Patient Health Questionnaire-9 Score 12 12/02/2023 Last PHQ-9: Questionnaire Data Not on file 0 12/02/2023 Housing Stability Answer Date Recorded What is your housing situation today? I have gianni christianson 11/24/[address] you li ve. Do you have problems with any of the following? None of the above 11/24/2023 Food Insecurity Answer Date Recorded Within the past 12 months, y ou worried that your food would run out before you got money to buy more: Never True 11/24/2023 Within the past 12 months,th e food you bought just didn't last and you didn't have enough money to get more: Never True Transportation Answer Date Recorded In the past 12 months, has l ack of transportation kept you from medical appts, meetings, work or from getting things needed for daily living? No 11/24/2023 Utilities Answer Date Recorded In the past 12 months, has t he electric, gas, oil or water company threatened to shut off services in your home? No 11/24/2023 Depression Answer Date Recorded Patient Health Questionnaire-2 Score 6 12/02/2023 Internet Access Answer Date Recorded Internet Access Q1 Yes 01/11/2024 Internet Access Q2 Not on file 01/11/2024 Comments No Sex and Gender Information Value Date Recorded Sex Assigned at Female 03/10/2022 10:17 AM EDT Legal Sex Female 10:17 AM EDT Gender Identity Female 03/10/2022 10:17 AM EDT Sexual Orientation Straight 03/10/2022 10 :17 AM EDT Last Filed Vital Signs Vital Sign Reading Time Taken Comments Blood Pressure 121/81 04/28/2024 9:33 AM EST Pulse 91 04/28/2024 9:33 AM EST Temperature 36.7 ??C (98.1 ??F) 04/28/2024 9:33 AM ES T Respiratory Rate 20 04/28/2024 9:33 AM EST Oxygen Saturation 98% 04/28/2024 9:33 AM EST Inhaled Oxygen Concentration - - Weight 78 kg (172 lb) 04/28/2024 9:33 AM EST Height 157.5 cm (5' 2 ) 03/16/2024 10:18 AM EST Body Mass Index 31.46 03/16/2024 10:18 AM EST Plan of Treatment Upcoming Encounters Date Type Department Care Team (Late st Contact Info) Description 07/06/2024 11:30 AM EST Clinical Support [facility] [address] [place] [address] Health Maintenance Due Date Last Done Comments Alcohol/Substance Use Screening 2009 COVID-19 Vaccine ( season) 2024 05/16/2021, 04/25/2021 Influenza Vaccine (#1) 2024 8, 04/01/2016, 02/27/2015, Additional history exists Depression Monitoring (PHQ-9) 06/03/2024 12/02/2023, 12/02/2023 SDOH Screening 11/23/2024 11/24/2023 Depression Screening 12/01/2024 12/02/2023, 12/02/19 Tobacco Screening 03/16/2025 03/16/2024 Pap Smear 02/18/2026 02/18/2023 DTaP/Tdap/Td Vaccines (8 - Td or Tdap) 02/20/2028 02/19/2018, 11/13/2009, 12/16/2001, Additional history exists Zoster Vaccines (1 of 2) 08/31/2047 RSV Patients and Patients Aged 60 years or older (1 - 1-dose 75+ series) 2072 Hepatitis B Vaccines Completed 07/13/1998, 04/20/1998, 1997 HIB Vaccines Completed 02/12/1999, 09/1998, 04/20/1998, Additional history exists IPV Vaccines Completed 09/02/2001, 0 09/1998, 04/20/1998, Additional history exists HPV Vaccines Completed 12/23/2012, 04/11, 11/13/2009 Hepatitis A Vaccines Completed 01/02/2014, 12/24/19 13 Meningococcal Vaccine Completed 02/27/2015, 010 HIV Screening Completed 08/06/2022 Hepatitis C Screening Completed 08/06/2022 Pneumococcal Vaccine: Pediatrics (0 to 5 Years) and At-Risk Patients (6 to 64 Years) Aged Out No longer eligible based on patient's age to complete this topic RSV under 20 months Aged Out No longe r eligible based on patient's age to complete this topic Rotavirus Vaccines Aged Out No longer eligible based on patient's age to complete this topic Procedures Procedure Name Priority Date/Time Associated Diagnosis Comments POCT , URINE Routine 04/28/2024 9:48 AM EST Benign paroxysmal positional vertigo due to bilateral vestibular disorder POCT , URINE Routine 04/20/2024 11:19 AM EST Surveillance for Depo-Provera contraception PAP SMEAR Routine 02/18/2023 4:22 PM EDT HEPATITIS C AB W/REFL TO HCV RNA, QN, PCR Routine 08/06/2022 2:49 PM EDT Encounter for screening examination for sexually transmitted disease HIV 1 RNA, QUANTITATIVE REAL TIME PCR Routine 08/06/2022 2:49 PM EDT Encounter for screening examination for sexually transmitted disease from Last 3 Months or Most Recently Relevant to Health Maintenance Results * POCT , urine manually resulted (04/28/2024 9:48 AM EST) Only the most recent of2 resultswithin the time period is included. Preg Test, Ur Negative Negative, Indeterminate, None Detected, Invalid, Specimen unsatisfactory for evaluation, Weakly Positive Urine 04/28/2024 9:48 AM EST Jono Hobbs MD POINT OF CARE TEST ENTER/EDIT OR DERABLES Final Result * Pap Smear (02/18/2023 4:22 PM EDT) 02/18/2023 4:22 PM EDT 02/19/2023 7:20 AM EDT Narrative [facility] - 02/20/2023 9:47 AM EDT ----- ------- Name: Kasey Macdonald ?Age/Sex: 27/F ? : 1995 Unit#: [id number] ?? Attend Dr: Scarlett Berrios ?Re02/18/23 ?Status: DEP REF ? [facility] Disch: ? ----- ------- SPEC : [id number] ?RECD: 02/19/23 ? STATUS: ??SOUT ? REQ NUM: [id number] ? JESSICA: 02/18/23 ? SUBM DR: Scarlett Berrios ? ENTERED: ??02/19/23 ?SP TYPE: Pap Smr ?OTHR DR: ? ORDERED: ??Pap Smear ? Interpretation ?? Satisfactory for evaluation. ?? Mild inflammation. ?? Negative for intraepithelial lesion or malignancy. ?Clinical Information LMP: 11/24/2022 Previous PAP test: Unknown date/findings Other history: Post miscarriage ? Material Received ?? ThinPrep-Cervical ----- ------- Signed (signature on file) JUANITO Ralph (ASCP) 02/20/23 0947 ? ----- ------- ? END OF REPORT ? us Scarlett Berrios MD LAB CYTOLOGY ORDERABLES Final Result [facility] [address] [place] [phone] * Hepatitis C Antibody with Reflex to HCV, RNA, Quantitative, Real-Time PCR (08/06/2022 2:49 PM EDT) Hepatitis C Antibody NON-REACT GREG NON-REACT GREG [facility] [place] [employer] Index 0.18 <1.00 [facility] [facility] Comment: HCV antibody was non-reactive. There is no laboratory evidence of HCV infection. In most cases, no further action is required. However, if recent HCV exposure is suspected, a test for HCV RNA (test code 02435) is suggested. For additional information please refer to http://VTM.[employer]/faq/CNH96r1 (This link is being provided for informational/ educational purposes only.) Blood Venous blood specimen / Unknown 08/06/2022 2:49 PM EDT 08/06/2022 2:50 PM EDT Narrative [facility] - 08/08/2022 11:04 AM EDT FASTING:NO FASTING: NO Result [facility] Scarlett Berrios MD LAB BLOOD ORDERABLES Final Res ult Performing Organization Address [facility] de Phone Number [facility] [address], [place] [address] [facility] [place] [employer] [address] [place] [address] * HIV-1 RNA, Quantitative, Real-Time PCR (08/06/2022 2:49 PM EDT) [facility] HIV 1 RNA, QN PCR NOT DETECTED NOT DETECTED copies/mL [facility] [employer] HIV 1 RNA, QN PCR NOT DETECTED NOT DETECTED Log copies/mL [facility] [place] [employer] Comment: This test was performed using Real-Time Polymerase Chain Reaction. Reportable Range: 20 copies/mL to 10,000,000 copies/mL (1.30 log copies/mL to 7.00 log copies/mL). Blood Venous blood specimen / Unknown 08/06/2022 2:49 PM EDT 08/06/2022 2:50 PM EDT Narrative [facility] - 08/08/2022 11:04 AM EDT FASTING:NO FASTING: NO Scarlett Berrios MD LAB BLOOD ORDERABLES Final Res ult Performing Organization Address City/[facility] Co de Phone Number [facility] [address], [place] [address] [facility] [address] [place] [address] from Last 3 Months or Most Recently Relevant to Health Maintenance Insurance [facility] [address] [place] [address] Care Teams Adjunct Professor Of Law Relationship Specialty Start Date End Date Scarlett Berrios MD [address] [place] [address] PCP - General Family Medicine 01/02/22
--- OUTSIDE RECORDS SUMMARY | 2024-06-01 08:43 | XMS_ITS | Encounter Summary ---
Author Organization [employer] Address [address] [address] 7t [place] [address] Care Team Providers Care Child Welfare Specialist Name Role Phone Scarlett Berrios MD Primary Care Provider Reason for Visit * Reason Onset Date Comments Med Refill 11/10/2023 Encounter Details Date Type Department Care Team (Late st Contact Info) Description 11/10/2023 Refill [facility]OMET[facility] [address] [place] [address] Yessenia Kapadia, OD [address] [place] [address] Social History Tobacco Use Types Packs/Day Years Used Date Smoking Tobacco: Never Smokeless Tobacco: Never Alcohol Use Standard Drinks/Week Comments Not Currently 0 (1 standard drink = 0.6 oz pur e alcohol) Depression Answer Date Recorded Patient Health Questionnaire-9 Score 21 02/06/2023 Housing Stability Answer Date Recorded What is your housing situation today? I have gianni christianson 02/23/[address] you li ve. Do you have problems with any of the following? None of the above 02/23/2023 Food Insecurity Answer Date Recorded Within the past 12 months, y ou worried that your food would run out before you got money to buy more: Never True 02/23/2023 Within the past 12 months,th e food you bought just didn't last and you didn't have enough money to get more: Never True Transportation Answer Date Recorded In the past 12 months, has l ack of transportation kept you from medical appts, meetings, work or from getting things needed for daily living? Yes, it has kept me from medical appointments or getting medications. 02/17/2023 Utilities Answer Date Recorded In the past 12 months, has t he electric, gas, oil or water company threatened to shut off services in your home? No 02/23/2023 Depression Answer Date Recorded Patient Health Questionnaire-2 Score 5 02/06/2023 Comments Unknown Sex and Gender Information Value Date Recorded Sex Assigned at Female 03/10/2022 10:17 AM EDT Legal Sex Female 10:17 AM EDT Gender Identity Female 03/10/2022 10:17 AM EDT Sexual Orientation Straight 03/10/2022 10 :17 AM EDT documented as of this encounter Miscellaneous Notes * Telephone Encounter - Yessenia Kapadia OD - 11/10/2023 3:25 PM EDT Patient may not refill without appointment documented in this encounter Plan of Treatment Upcoming Encounters Date Type Department Care Team (Late st Contact Info) Description 07/06/2024 11:30 AM EST Clinical Support [facility]IC[facility] [address] [place] [address] documented as of this encounter Visit Diagnoses Not on filedocumented in this encounter Additional Health Concerns Assessment Noted Time PHQ-9 Depression Total Score: 21 023 3:39 PM EDT documented as of this encounter Care Teams Child Welfare Specialist Relationship Specialty Start Date End Date Scarlett Berrios MD [address] [place] [address] PCP - General Family Medicine 01/02/22 documented as of this encounter
--- OUTSIDE RECORDS SUMMARY | 2024-06-01 08:43 | XMS_ITS | Encounter Summary ---
Author Organization [employer] Address [address] 7[address] [place] [address] Care Team Providers Care Icing Machine Operator Name Role Phone Scarlett Berrios MD Primary Care Provider [phone] Reason for Visit * Reason Onset Date Comments Referral 09/24/2022 FYI 09/24/2022 Encounter Details Date Type Department Care Team ([facility] st Contact Info) Description 09/24/2022 Telephone [facility] [address] [place] [address] Scarlett Berrios MD [address] [place] [address] Referral; FYI Social History Tobacco Use Types Packs/Day Years [...] encounter Miscellaneous Notes * Telephone Encounter - Stu Esposito - 09/24/2022 2:17 PM EDT Tc from pt requesting to a referral for [facility]. Pt also would like to inform PCP that they have been scheduled with Gastroenterology for 10/14/22 @ 245pm @ [facility] Please contact at [phone] documented in this encounter Plan of Treatment Upcoming Encounters Date Type Department Care Team ([facility] st Contact Info) Description 07/06/2024 11:30 AM EST Clinical Support [facility] [address] [place] [address] documented as of this encounter Visit Diagnoses Not on filedocumented in this encounter Care Teams Icing Machine Operator Relationship Specialty Start Date End Date Scarlett Berrios MD [address] [place] [address] PCP - General Family Medicine 01/02/22 documented as of this encounter
--- OUTSIDE RECORDS SUMMARY | 2024-06-01 08:43 | XMS_ITS | Encounter Summary ---
Author Organization [employer] Address [address] 7t [place] [address] Care Team Providers Care Manufacturing Worker Name Role Phone Scarlett Berrios MD Primary Care Provider Encounter Details Date Type Department Care Team ([facility] [place] st Contact Info) Description 05/03/2024 12:30 PM EST Telemedicine [facility] [address] [place] [address] Rae Colindres NP [address] [place] [address] Vertigo (Primary Dx); Nonintractable headache, unspecified chronicity pattern, unspecified headache type Social History Tobacco Use Types Packs/Day Years [...] AM EDT documented as of this encounter Progress Notes * Rae Colindres, TUBE BUILDER - 05/03/2024 12:30 PM EST Subjective Kasey Wiggins Bib is a 28 y.o. female who presents to the office for sick visit Current concerns: Pt reports intermittent vertigo attacks, was seen [facility] for these and prn meclizine washelpful, pt reports intermittent bouts of vertigo persisting, not worse since evaluation in [facility] though pt does report the vertigo now seems to precede a headache. Has not tried to take anything for the headache, was not certain if cold mix otc meds with meclizine. No diplopia, projectileemesis or hearing loss Patient Active Problem List Diagnosis Hypothyroid Allergic rhinitis Abnormal uterine bleeding Scoliosis (and kyphoscoliosis), idiopathic Irregular menses Constipation by delayed colonic transit Encounter for screening examination for sexually transmitted disease Class 1 obesity Severe episode of recurrent major depressive disorder, without psychotic features (CMS/HCC) Family problems Grief associated with loss of fetus Screening for cervical cancer Nonintractable headache Abdominal bloating Bilateral impacted cerumen Elevated immunoglobulin A Vertigo Review of Systems Constitutional: Negative for activity change and appetite change. Respiratory: Negative for apnea. Genitourinary: Negative for difficulty urinating. Neurological: Positive for dizziness and headaches. Objective Visit Vitals LMP 04/28/2024 Comment: has been irregular. bleeding for a month now, ending today OB Status Having periods Smoking Status Never Physical Exam Assessment/Plan Problem List Items Addressed This Visit Nonintractable headache Current Assessment & Plan Prn ibuprofen ordered, may take at onset of headache with food. Pt will update if headaches and vertigo worsen or fail to improve Relevant Medications ibuprofen (IBU) 800 MG tablet Vertigo - Primary Current Assessment & Plan Renew prn meclizine which pt finds helpful for vertigo symptoms Relevant Medications meclizine (Antivert) 25 MG tablet ibuprofen (IBU) 800 MG tablet Current Outpatient Medications Medication Sig Dispense Refill cetirizine (ZyrTEC) 10 MG tablet Take 1 tablet (10 mg) by mouth in the morning. 90 tablet 1 fluticasone (Flonase) 50 MCG/ACT nasal spray SPRAY 2 SPRAYS INTO EACH NOSTRIL IN THE MORNING 48 mL 1 hydrocortisone 2.5 % cream Apply pea sized amount to skin bid for 1 week 15 g 0 ibuprofen (IBU) 800 MG tablet 1 tablet every 8 hours as needed for severe headache 21 tablet 0 levothyroxine (Synthroid) 137 MCG tablet Take 137 mcg by mouth before breakfast. 90 tablet 3 Magnesium Oxide -Mg Supplement 400 MG capsule TAKE 1 CAPSULE BY MOUTH ONCE PER DAY. 90 capsule 3 meclizine (Antivert) 25 MG tablet Take 1 tablet (25 mg) by mouth if needed in the morning, at noon,and at bedtime for dizziness for up to 10 days. 30 tablet 0 medroxyPROGESTERone (Depo-Provera) 150 MG/ML injection Inject 1 mL (150 mg) into the muscle every 3(three) months. 1 mL 3 [id number]-[id number] 0.1 % ointment Apply to upper eyelids twice a day. 3.5 g 1 omeprazole (PriLOSEC) [address] capsule TAKE 1 CAPSULE (20 MG) BY MOUTH BEFORE BREAKFAST DO NOT CRUSH OR CHEW 90 capsule 1 riboflavin (True Vitamin B2) 100 MG tablet TAKE 1 TABLET BY MOUTH EVERY DAY 90 tablet 3 sertraline (Zoloft) 50 MG tablet Take 1 tablet (50 mg) by mouth Once per day. 90 tablet 3 Current Facility-Administered Medications Medication Dose Route Frequency Provider Last Rate Last Admin medroxyPROGESTERone (Depo-Provera) injection 150 mg 150 mg Intramuscular q3 months Yanet Cristobal, DO 150 mg at 12/11/24 1100 documented in this encounter Miscellaneous Notes * Assessment & Plan Note - Rae Colindres NP - 05/03/2024 11:59 AM ESTAssociated Problem(s): Vertigo Renew prn meclizine which pt finds helpful for vertigo symptoms * Assessment & Plan Note - Rae Colindres NP - 05/03/2024 11:59 AM ESTAssociated Problem(s): Nonintractable headache Prn ibuprofen ordered, may take at onset of headache with food. Pt will update if headaches and vertigo worsen or fail to improve documented in this encounter Plan of Treatment Upcoming Encounters Date Type Department Care Team (Late st Contact Info) Description 07/06/2024 11:30 AM EST Clinical Support [facility] [address] [place] [address] documented as of this encounter Visit Diagnoses Diagnosis Vertigo- Primary Dizziness and giddiness Nonintractable headache, unspecified chronicity pattern, unspecified headache type documented in this encounter Additional Health Concerns Assessment Noted Time PHQ-9 Depression Total Score: 12 024 2:36 PM EDT documented as of this encounter Care Teams Manufacturing Worker Relationship Specialty Start Date End Date Scarlett Berrios MD [address] [place] [address] PCP - General Family Medicine 01/02/22 documented as of this encounter
--- OUTSIDE RECORDS SUMMARY | 2024-06-01 08:43 | XMS_ITS | Encounter Summary ---
Author Organization [employer] Address [address] [facility] 7t [place] [address] Care Team Providers Care Price Analyst Name Role Phone Scarlett Berrios MD Primary Care Provider [phone] Encounter Details Date Type Department Care Team (Late Contact Info) Description 09/24/2022 Orders Only [facility] [address] [place] [address] Scarlett Berrios MD [address] [place] [address] Blurry vision, bilateral (Primary Dx) Social History Tobacco Use Types [...] Description 07/06/2024 11:30 AM EST Clinical Support [facility] [address] [place] [address] documented as of this encounter Visit Diagnoses Diagnosis Blurry vision, bilateral- Primary Other specified visual disturbances documented in this encounter Care Teams Price Analyst Relationship Specialty Start Date End Date Scarlett Berrios MD [address] [place] [address] PCP - General Family Medicine 01/02/22 documented as of this encounter
--- OUTSIDE RECORDS SUMMARY | 2024-06-01 08:43 | XMS_ITS | Encounter Summary ---
Author Organization [employer] Address [address] [facility] 7t [place] [address] Care Team Providers Care Custom Feed Corn Operator Name Role Phone Scarlett Berrios MD Primary Care Provider [phone] Encounter Details Date Type Department Care Team (Late Contact Info) Description 10/01/2022 Orders Only [facility] [address] [place] [address] Scarlett Berrios MD [address] [place] [address] [phone] Hypothyroidism, unspecified type (Primary Dx) Social History [...] Description 07/06/2024 11:30 AM EST Clinical Support [facility] [address] [place] [address] documented as of this encounter Visit Diagnoses Diagnosis Hypothyroidism, unspecified type- Primary documented in this encounter Care Teams Custom Feed Corn Operator Relationship Specialty Start Date End Date Scarlett Berrios MD [address] [place] [address], [place] [address] PCP - General Family Medicine 01/02/22 documented as of this encounter
--- OUTSIDE RECORDS SUMMARY | 2024-06-01 08:44 | XMS_ITS | Clinical Summary ---
Author Organization [facility] Address [address] [place] [address] Care Team Providers Care Jewelry Model Maker Name Role Phone Amaury Jones MD Primary Care Provider [phone] Medical History Medical History Date Comments Scoliosis of thoracic spine 2007 DX:S coliosis of thoracic spine Anemia affecting i n third trimester 02/24/2018 DX:Anemia affecting pregnanc y in third trimester Family History Medical History Relation Name Comments No Known Problems Father Diabetes Maternal Grandfather Hypertension Maternal Grandfather No Known Problems Mother Breast cancer Neg Hx Colon cancer Neg Hx Ovarian cancer Neg Hx Prostate cancer Neg Hx Relation Name Status Comments Father Alive Maternal Grandfather Mother Alive Social History Tobacco Use Types Packs/Day Years Used Date Smoking Tobacco: Never Smokeless Tobacco: Never Alcohol Use Standard Drinks/Week Comments No 0 (1 standard drink = 0.6 oz pur e alcohol) Sex and Gender Information Value Date Recorded Sex Assigned at Not on file Gender Identity Not on file Sexual Orientation Not on file Obstetrics History Last Filed Vital Signs Vital Sign Reading Time Taken Comments Blood Pressure 94/62 01/07/2023 9:03 AM EDT Pulse 95 01/07/2023 9:03 AM EDT Temperature - - Respiratory Rate - - Oxygen Saturation - - Inhaled Oxygen Concentration - - Weight 78.9 kg (174 lb) 01/07/2023 9:03 AM EDT Height 152.4 cm (5') 05/02/2022 2:32 PM EST Body Mass Index 33.98 05/02/2022 2:32 PM EST Plan of Treatment Health Maintenance Due Date Last Done Comments HPV Vaccines (1 - 3-dose series) 2012 Hepatitis B Vaccines (1 of 3 - 19+ 3-dose series) 2016 Cervical Cancer Screening: P ap Smear 12/06/2021 12/06/2018, 12/06/2018 Depression Screening 04/13/2022 HIV Screening 04/13/2022 Hepatitis C Screening 04/13/2022 Social Influencers of Health Screening 04/13/2022 COVID-19 Vaccine (1 - 2023-2 5 season) 2024 Influenza Vaccine (#1) 2024 02/19/2018 DTaP,Tdap,and Td Vaccines (2 - Td or Tdap) 02/20/2028 02/19/2018 HIB Vaccines Aged Out No longer eligi ble based on patient's age to complete this topic Hepatitis A Vaccines Aged Out No long er eligible based on patient's age to complete this topic IPV Vaccines Aged Out No longer eligi ble based on patient's age to complete this topic MMR Vaccines Aged Out No longer eligi ble based on patient's age to complete this topic Meningococcal ACWY Vaccine Aged Out N o longer eligible based on patient's age to complete this topic Pneumococcal Vaccine: Pediatrics (0 to 5 Years) and At-Risk Patients (6 to 64 Years) Aged Out No longer eligible b ased on patient's age to complete this topic RSV Immunization Patients Under 20 months Aged Out No longer eligible b ased on patient's age to complete this topic Varicella Vaccines Aged Out No longer eligible based on patient's age to complete this topic Procedures Procedure Name Priority Date/Time Associated Diagnosis Comments PAP SMEAR Routine 12/06/2018 from Last 3 Months or Most Recently Relevant to Health Maintenance Results * Pap smear (12/06/2018) 12/06/2018 Narrative HISTORICAL TESTING LAB RESULTING AGENCY - 12/08/2018 3:56 PM EDT [id number] THINPREP PAP, IMAGED: NEGATIVE FOR SQUAMOUS INTRAEPITHELIAL LESION AND MALIGNANCY . ABUNDANT RED BLOOD CELLS ARE PRESENT. JUANITO MCMAHAN(ASCP) (CASE ELECTRONICALLY SIGNED 12 08 2018) RESULT OF APTIMA HIGH RISK HPV ASSAY: HIGH RISK HPV: ??NEGATIVE (SEROTYPES 16,18,31,33,35,39,45,51,52,56,58,59,66,68) COMPLETED ON 2018-12-08 ADEQUACY: SATISFACTORY ENDOCERVICAL/TRANSFORMATION ZONE COMPONENT PRESENT. SOURCE: THINPREP PAP HPV ANY DX: ??REFLEX 16 AND 18, CERVICAL, IMAGED CLINICAL INFORMATION: HPV ANY DIAGNOSIS. Z12.4, Z01.419, LMP 10/17/2018, PAP HX: NEGATIVE; NEVER HAD PAP Betty Denise [facility] LAB CYTOLOGY OR DERABLES HISTORICAL TESTING LAB RESULTING AGENCY from Last 3 Months or Most Recently Relevant to Health Maintenance Care Teams Jewelry Model Maker Relationship Specialty Start Date End Date Amaury Jones MD [address] [place] [address] PCP - General 08/20/18
== END 2024-06-01 09:22 | disposition home or self-care (01) ==
LOC: HO.HGI 08:32
PROVIDERS: PCP General Practice; Visit Provider Internal Medicine
DX: R14.0 Abdominal distension (gaseous) (principal); K59.09 Other constipation; E03.9 Hypothyroidism, unspecified
CPT/HCPCS: 99213

== ENCOUNTER → 2024-06-01 08:32 | Outpatient (BNVA) | payer MEDICAID, SELFPAY | PROVIDERS: PCP General Practice; Visit Provider Internal Medicine ==

== ENCOUNTER 2024-06-26 08:55 | Outpatient (REF) | payer MEDICAID, SELFPAY ==
--- NOTE | ~2024-06-26 | MR_ITS ---
CLINICAL HISTORY: persistent dizziness with headache (2 months) MR Brain without gadolinium Comparison: None Findings: No restricted diffusion. No intracranial mass or hemorrhage. No midline shift. No hydrocephalus. 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 The orbits are normal. The sinuses and mastoid air cells are clear. No focal bone lesion. Prominent nasopharyngeal tonsil measuring up to 17 mm in AP dimension may be reactive or inflammatory/infectious in nature. Correlate clinically. 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 Prominent nasopharyngeal tonsil measuring up to 17 mm in AP dimension may be reactive or inflammatory/infectious in nature. Correlate clinically. This document has been electronically signed by: Jazzy Bradley MD on 06/28/2024 11:18:45
--- OUTSIDE RECORDS SUMMARY | 2024-06-26 08:57 | XMS_ITS | Encounter Summary ---
Author Organization [employer] Address [address] [facility] [facility] 7[address] [place] [address] Care Team Providers Care Tail End Rider Name Role Phone Scarlett Berrios MD Primary Care Provider [phone] Reason for Visit * Reason Onset Date Comments Referral 06/20/2024 Encounter Details Date Type Department Care Team ([facility] st Contact Info) Description 06/20/2024 Telephone [facility] [address] [place] [address] Scarlett Berrios MD [address] [place] [address] Referral Social History Tobacco Use Types Packs/Day Years [...] encounter Miscellaneous Notes * Telephone Encounter - Cindi Steele RN - 06/21/2024 11:09 AM EST TC placed to [facility] [phone] to inquire on below. RN was informed [facility] does NOT see patients for vestibular therapy diagnosis. RN was informed patient needs to be referred to a vestibular rehab specifically (they believe [facility] in [place] offers this service). Please review referral and send to a new location. Thank you! * Telephone Encounter - Ananda Tan - 06/20/2024 4:00 PM EST [facility] that pt can't be treated in there facility because of pt dx code on referral sent over. Pt would have to be seen somewhere else. documented in this encounter Plan of Treatment Upcoming Encounters Date Type Department Care Team (Late st Contact Info) Description 07/06/2024 11:30 AM EST Clinical Support [facility] [address] [place] [address] documented as of this encounter Visit Diagnoses Not on filedocumented in this encounter Additional Health Concerns Assessment Noted Time PHQ-9 Depression Total Score: 12 07/24/2 024 2:36 PM EDT documented as of this encounter Care Teams Tail End Rider Relationship Specialty Start Date End Date Scarlett Berrios MD [address] [place] [address] PCP - General Family Medicine 01/02/22 documented as of this encounter
--- OUTSIDE RECORDS SUMMARY | 2024-06-26 08:57 | XMS_ITS | Encounter Summary ---
Author Organization [employer] Address [address] [facility] [address] [place] [address] Care Team Providers Care Manager Of School Name Role Phone Scarlett Berrios MD Primary Care Provider [phone] Reason for Visit * Reason Onset Date Comments Letter for School/Work 06/17/2024 Encounter Details Date Type Department Care Team ([facility] Contact Info) Description 06/17/2024 Telephone [facility] [address] [place] [address] Scarlett Berrios MD [address] [place] [address] Letter for School/Work Social History Tobacco Use Types Packs/Day Years [...] Telephone Encounter - Cindi Steele RN - 06/17/2024 5:01 PM EST TC placed to patient [phone] in regards to below message to inform letter has been generated. Patient did not answer, RN left VM requesting CB to red team nurses. Patient to f/u PRN. * Telephone Encounter - Renny Nolan - 06/17/2024 3:29 PM EST TC from pt was seen via tele today by Dr Carranza, who was to provide a work letter for pt excusingher from work for the past 3 days and potentially for Thursday the 06/20. Pt states work requiring her to submit letter today . documented in this encounter Plan of Treatment Upcoming Encounters Date Type Department Care Team (Late st Contact Info) Description 07/06/2024 11:30 AM EST Clinical Support [facility] [address] [place] [address] documented as of this encounter Visit Diagnoses Not on filedocumented in this encounter Additional Health Concerns Assessment Noted Time PHQ-9 Depression Total Score: 12 024 2:36 PM EDT documented as of this encounter Care Teams Manager Of School Relationship Specialty Start Date End Date Scarlett Berrios MD [address] [place] [address] PCP - General Family Medicine 01/02/22 documented as of this encounter
--- OUTSIDE RECORDS SUMMARY | 2024-06-26 08:58 | XMS_ITS | Clinical Summary ---
Author Organization [facility] Address [address] [place] [address] Care Team Providers Care Religious Leader Name Role Phone Amaury Jones MD Primary Care Provider [phone] Medical History Medical History Date Comments Scoliosis [...] drink = 0.6 oz pur e alcohol) Comments Unknown Sex and Gender Information Value Date Recorded Sex Assigned at Not on file Legal Sex Female 4:01 AM EST Gender Identity Not on file Sexual Orientation [...] patient's age to complete this topic Meningococcal B Vacine Aged Out No lo nger eligible based on patient's age to complete [...] RESULTING AGENCY - 12/08/2018 3:56 PM EDT [id number] THINPREP PAP, IMAGED: NEGATIVE FOR SQUAMOUS INTRAEPITHELIAL [...] 10/17/2018, PAP HX: NEGATIVE; NEVER HAD PAP us Betty Denise [facility] LAB CYTOLOGY ORDERABLES Final Result HISTORICAL TESTING LAB RESULTING AGENCY from Last 3 Months or Most Recently Relevant to Health Maintenance Care Teams Religious Leader Relationship Specialty Start Date End Date Amaury Jones MD [address] [address] PCP - General 08/20/18
--- OUTSIDE RECORDS SUMMARY | 2024-06-26 08:58 | XMS_ITS | Encounter Summary ---
Author Organization [employer] Address [address] [facility] [address] [place] [address] Care Team Providers Care Roller Stitcher Name Role Phone Scarlett Berrios MD Primary Care Provider [phone] Encounter Details Date Type Department Care Team (Latest Contact Info) Description 06/17/2024 Travel Social History Tobacco Use Types Packs/Day Years [...] Description 07/06/2024 11:30 AM EST Clinical Support [facility] [address] [place] [address] documented as of this encounter Visit Diagnoses Not on filedocumented in this encounter Additional Health Concerns Assessment Noted Time PHQ-9 Depression Total Score: 12 024 2:36 PM EDT documented as of this encounter Care Teams Roller Stitcher Relationship Specialty Start Date End Date Scarlett Berrios MD [address] [place] [address] PCP - General Family Medicine 01/02/22 documented as of this encounter
--- OUTSIDE RECORDS SUMMARY | 2024-06-26 08:58 | XMS_ITS | Encounter Summary ---
Author Organization [employer] Address [address] [facility] 7t [place] [address] Care Team Providers Care Continuous Mining Operator Name Role Phone Scarlett Berrios MD Primary Care Provider [phone] Encounter Details Date Type Department Care Team (Late Contact Info) Description 09/24/2022 Orders Only [facility] [address] [place] [phone] Scarlett Berrios MD [address] [place] [phone] Blurry vision, bilateral (Primary Dx) Social History [...] Description 07/06/2024 11:30 AM EST Clinical Support [facility] [address] [place] [phone] documented as of this encounter Visit Diagnoses Diagnosis Blurry vision, bilateral- Primary Other specified visual disturbances documented in this encounter Care Teams Continuous Mining Operator Relationship Specialty Start Date End Date Scarlett Berrios MD [address] [place] [address] PCP - General Family Medicine 01/02/22 documented as of this encounter
--- OUTSIDE RECORDS SUMMARY | 2024-06-26 08:58 | XMS_ITS | Encounter Summary ---
Author Organization [employer] Address 75 [facility] 7t [place] [address] Care Team Providers Care Pull Over Name Role Phone Scarlett Berrios MD Primary Care Provider [phone] Reason for Referral * Imaging (Routine) - Authorized Specialty Diagnoses / Procedures Referred By Contac t Referred To Contact Radiology Diagnoses Dizziness and giddiness Nonintractable episodic headache, unspecified headache type Procedures MR Brain w/o Contrast Gillian Purdy MD [address] [place] [address] Phone: tel: fax: [address] Phone: tel: fax: Referral ID Status Reason Start Date Expiration Date V isits Requested Visits Authorized [id number] Authorized 06/17/2024 06/17/2025 1 1 * Consultation (Routine) - Closed Specialty Diagnoses / Procedures Referred By Contac t Referred To Contact Otolaryngology Diagnoses Dizziness and giddiness Vestibular disequilibrium involving both inner ears Gillian Purdy MD [address] [place] [address] Phone: tel: fax: [facility] [address] Phone: tel: fax: Referral ID Status Reason Start Date Expiration Date V isits Requested Visits Authorized [id number] Closed Specialty Services Required 06/17/2024 06/17/2025 6 6 * Consultation (Routine) - Closed Specialty Diagnoses / Procedures Referred By Contgiovany t Referred To Contact Physical Therapy Diagnoses Vestibular disequilibrium involving both inner ears Gillian Purdy MD [address] [place] [address] Phone: tel: fax: [facility] [address] [place] [address] Phone: tel: fax: Referral ID Status Reason Start Date Expiration Date V isits Requested Visits Authorized [id number] Closed Specialty Services Required 06/17/2024 06/17/2025 20 20 Encounter Details Date Type Department Care Team (Latest Contact Info) Description 06/17/2024 11:30 AM EST Telemedicine [facility] [address] [place] [phone] Gillian Purdy MD [address] [place] [phone] Dizziness and giddiness (Primary Dx); Vestibular disequilibrium involving both inner ears; Nonintractable episodic headache, unspecified headache type Social History Tobacco Use [...] as of this encounter Progress Notes * Gillian Acharya MD - 06/17/2024 11:30 AM EST SUBJECTIVE: Kasey Mccartney is a 28 y.o. year old female who presents for sick appointment . Acute Concerns: Patient reports persistent dizziness with headache that has been happening since Thursday (3 days ago), patient reports this is second/third time that happens, she tells me she can only stay at homelying on her couch, and she has not been able to go to work because of this, she has been doing exercises for vertigo at home and she has been taking her medication as prescribed. 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 HENT: Negative. Respiratory: Negative. Cardiovascular: Negative. Neurological: Positive for dizziness and headaches. Negative for tremors, seizures, syncope, facialasymmetry, speech difficulty, weakness, light- headedness and numbness. OBJECTIVE: There were no vitals filed for this visit. Follow Up: No follow-ups on file. Current Outpatient Medications on File Prior to Visit Medication Sig Dispense Refill cetirizine (ZyrTEC) 10 [...] MOUTH ONCE PER DAY. 90 capsule 3 medroxyPROGESTERone (Depo-Provera) 150 MG/ML injection Inject 1 mL (150 mg) into the muscle every 3(three) months. 1 mL 3 gxfuwewb-zbiqbpeop-iznRPZAHoober 0.1 % ointment Apply to upper eyelids [...] day. 90 tablet 3 Current Facility-Administered Medications on File Prior to Visit Medication Dose Route Frequency Provider Last Rate Last Admin medroxyPROGESTERone (Depo-Provera) injection 150 mg 150 mg Intramuscular q3 months Yanet Cristobal, 150 mg at 04/20/24 1100 Problem List Items Addressed This Visit Dizziness and giddiness - Primary Relevant Orders Referral to ENT MR Brain w/o Contrast Vestibular disequilibrium involving both inner ears Relevant Orders Referral to Physical Therapy Referral to ENT Headache In light of persistent dizziness and headaches for more than 2 months in adjunct patient I will order an MRI of the brain, I will refer her also to specialist I advised to maintain hydration I advised to change positions slowly ED precautions were reviewed with patient Letter for work to be generated Relevant Orders MR Brain w/o Contrast documented in this encounter Miscellaneous Notes * Assessment & Plan Note - Gillian Acharya MD - 06/17/2024 12:36 PM EST Associated Problem(s): Headache In light of persistent dizziness and headaches for more than 2 months in adjunct patient I will order an MRI of the brain, I will refer her also to specialist I advised to maintain hydration I advised to change positions slowly ED precautions were reviewed with patient Letter for work to be generated documented in this encounter Plan of Treatment Upcoming Encounters Date Type Department Care Team (Late st Contact Info) Description 07/06/2024 11:30 AM EST Clinical Support [facility] [address] [place] [phone] Scheduled Orders Name Type Priority Associated Diagnoses Orde r Schedule MR Brain w/o Contrast Imaging Routine Dizziness and giddiness Nonintractable episodic headache, unspecified headache type Expected: 06/17/2024, Expires: 06/17/2025 Scheduled Referrals Name Type Priority Associated Diagnoses Orde r Schedule Referral to Physical Therapy Outpatient Referral Routine Vestibular disequilibrium involving both inner ears Expected: 06/17/2024 (Approximate), Expires: 06/17/2025 Referral to ENT Outpatient Referral Routine Dizziness and giddiness Vestibular disequilibrium involving both inner ears Expected: 06/17/2024 (Approximate), Expires: 06/17/2025 documented as of this encounter Visit Diagnoses Diagnosis Dizziness and giddiness- Primary Vestibular disequilibrium involving both inner ears Nonintractable episodic headache, unspecified headache type documented in this encounter Additional Health Concerns Assessment Noted Time PHQ-9 Depression Total Score: 12 024 2:36 PM EDT documented as of this encounter Care Teams Pull Over Relationship Specialty Start Date End Date Scarlett Berrios MD [address] [place] [address] PCP - General Family Medicine 01/02/22 documented as of this encounter
--- OUTSIDE RECORDS SUMMARY | 2024-06-26 08:58 | XMS_ITS | Encounter Summary ---
Author Organization [employer] Address [address] [facility] [address] 7[address] [place] [address] Care Team Providers Care Character Artist Name Role Phone Scarlett Berrios MD Primary Care Provider [phone] Encounter Details Date Type Department Care Team ([facility] st Contact Info) Description 06/17/[address] [facility] [address] [place] [address] Scalrett Berrios MD [address] [place], [place] [phone] Social History Tobacco Use Types Packs/Day Years [...] encounter Miscellaneous Notes * Telephone Encounter - Anahy Chapman RN - 06/17/2024 9:41 AM EST Called pt. RE: Incoming pt. Portal message of Vertigo and missing work- needing a work excuse note.Pt. Was seen in office for Vertigo 05/03/24 and has been taking medication prescribed but, pt. States that her vertigo has been bad this week and she has missed 3 days of work due to vertigo. Pt. Is currently laying down on couch and requests a televisit to address vertigo sx this week and get Dr Note for out of work. Pt. States that headaches usually bring on the vertigo. Pt has been drinking water and is well hydrated. No loss of consciousness and no vomiting. Protocol Used: Dizziness (Adult) Protocol-Based Disposition: Go to Office or Video Visit Now- televisit today at 1115am Positive Triage Questions: * Spinning or tilting sensation (vertigo) present now * Dizziness not present now, but is a chronic symptom (recurrent or ongoing AND lasting > 4 weeks) * All higher-acuity triage questions were negative Care Advice Discussed: * Drink Fluids * Lie Down and Rest * Cool Off * Prevention - Dizziness documented in this encounter Plan of Treatment Upcoming Encounters Date Type Department Care Team (Late st Contact Info) Description 07/06/2024 11:30 AM EST Clinical [address] [facility] [address] [place] [address] documented as of this encounter Visit Diagnoses Not on filedocumented in this encounter Additional Health Concerns Assessment Noted Time PHQ-9 Depression Total Score: 12 024 2:36 PM EDT documented as of this encounter Care Teams Character Artist Relationship Specialty Start Date End Date Scarlett Berrios MD [address] [place] [address] PCP - General Family Medicine 01/02/22 documented as of this encounter
--- OUTSIDE RECORDS SUMMARY | 2024-06-26 08:58 | XMS_ITS | Encounter Summary ---
Author Organization [employer] Address 75 [facility] 7t [place] [address] Care Team Providers Care Malt House Kiln Operator Name Role Phone Scarlett Berrios MD Primary Care Provider [phone] Encounter Details Date Type Department Care Team (Late Contact Info) Description 10/01/2022 Orders Only [facility] [address] [place] [phone] Scarlett Berrios MD [address] [place] [address] [phone] Hypothyroidism, unspecified type (Primary Dx) Social History [...] Description 07/06/2024 11:30 AM EST Clinical Support [facility] [address] [place] [address] documented as of this encounter Visit Diagnoses Diagnosis Hypothyroidism, unspecified type- Primary documented in this encounter Care Teams Malt House Kiln Operator Relationship Specialty Start Date End Date Scarlett Berrios MD [address] [place] [address], [place] [address] PCP - General Family Medicine 01/02/22 documented as of this encounter
--- OUTSIDE RECORDS SUMMARY | 2024-06-26 08:58 | XMS_ITS | Encounter Summary ---
Author Organization [employer] Address 75 [facility] 7t [place] [address] Care Team Providers Care Form Worker Name Role Phone Scarlett Berrios MD Primary Care Provider [phone] Encounter Details Date Type Department Care Team (Late Contact Info) Description 10/01/2022 Orders Only [facility] [address] [place] [address] Scarlett Berrios MD [address] [place] [address] [phone] Hypothyroidism, unspecified type (Primary Dx) Social History [...] Description 07/06/2024 11:30 AM EST Clinical Support [facility] [address] [place] [address] documented as of this encounter Visit Diagnoses Diagnosis Hypothyroidism, unspecified type- Primary documented in this encounter Care Teams Form Worker Relationship Specialty Start Date End Date Scarlett Berrios MD [address] [place] [address], [place] [address] PCP - General Family Medicine 01/02/22 documented as of this encounter
--- OUTSIDE RECORDS SUMMARY | 2024-06-26 08:58 | XMS_ITS | Encounter Summary ---
Author Organization [employer] Address [address] [facility] [address] [place] [address] Care Team Providers Care Industrial Registered Nurse Name Role Phone Scarlett Berrios MD Primary Care Provider [phone] Reason for Visit * Reason Onset Date Comments Referral 09/24/2022 FYI 09/24/2022 Encounter Details Date Type Department Care Team ([facility] st Contact Info) Description 09/24/2022 Telephone [facility] [address] [place] [address] Scarlett Berrios MD [address] [place] [address] Referral; FYI Social History Tobacco Use Types [...] Access Q2 Not on file 01/11/2024 Comments Unknown Sex and Gender Information Value Date Recorded Sex Assigned at Female 03/10/2022 10:17 AM EDT Legal Sex Female 10:17 AM EDT Gender Identity Female 03/10/2022 10:17 AM EDT Sexual Orientation Straight 03/10/2022 10 :17 AM EDT COVID-19 Exposure Response Date Recorded In the last 10 days, have yo u been in contact with someone who was confirmed or suspected to have Coronavirus/COVID-19? No / Unsure 11/17/2022 1:14 PM EDT documented as of this encounter Miscellaneous Notes * Telephone Encounter - Stu Esposito - 09/24/2022 2:17 PM EDT Tc from pt requesting to a referral for [facility]. Pt also would like to inform PCP that they have been scheduled with Gastroenterology for 10/14/22 @ 245pm @ [facility] Please contact at [phone] documented in this encounter Plan of Treatment Upcoming Encounters Date Type Department Care Team (Late st Contact Info) Description 07/06/2024 11:30 AM EST Clinical Support [facility] [address] [place] [address] documented as of this encounter Visit Diagnoses Not on filedocumented in this encounter Care Teams Industrial Registered Nurse Relationship Specialty Start Date End Date Scarlett Berrios MD [address] [place] [address] PCP - General Family Medicine 01/02/22 documented as of this encounter
--- OUTSIDE RECORDS SUMMARY | 2024-06-26 08:58 | XMS_ITS | Encounter Summary ---
Author Organization [employer] Address [address] [facility] [address] 7t [place] [address] Care Team Providers Care Laser Operator Name Role Phone Scarlett Berrios MD Primary Care Provider [phone] Reason for Visit * Reason Onset Date Comments Med Refill 11/10/2023 Encounter Details Date Type Department Care Team (Late st Contact Info) Description 11/10/2023 Refill [facility] [address] [place] [address] Yessenia Kapadia, OD [address] [place] [address] Social History Tobacco Use Types Packs/Day Years [...] Description 07/06/2024 11:30 AM EST Clinical Support [facility] [address] [place] [address] documented as of this encounter Visit Diagnoses Not on filedocumented in this encounter Additional Health Concerns Assessment Noted Time PHQ-9 Depression Total Score: 21 023 3:39 PM EDT documented as of this encounter Care Teams Laser Operator Relationship Specialty Start Date End Date Scarlett Berrios MD [address] [place] [address] PCP - General Family Medicine 01/02/22 documented as of this encounter
== END 2024-06-26 08:56 | disposition home or self-care (01) ==
LOC: HO.MRI 08:55
PROVIDERS: PCP General Practice; Visit Provider Internal Medicine
DX: R42 Dizziness and giddiness (principal); R51.9 Headache, unspecified
CPT/HCPCS: 70551

== ENCOUNTER → 2024-06-26 09:03 | Outpatient (BNV) | payer MEDICAID, SELFPAY | PROVIDERS: PCP General Practice; Visit Provider Radiology Diagnostic Radiology | DX: R51.9 Headache, unspecified (principal); R42 Dizziness and giddiness | CPT/HCPCS: 70551 ==

== ENCOUNTER → 2024-07-22 09:15 | Outpatient (BNV) | payer MEDICAID, SELFPAY | PROVIDERS: PCP General Practice; Visit Provider Radiology Diagnostic Radiology | DX: G93.89 Other specified disorders of brain (principal) | CPT/HCPCS: 70552 ==

== ENCOUNTER 2024-07-22 09:21 | Outpatient (REF) | payer MEDICAID, SELFPAY ==
--- NOTE | ~2024-07-22 | MR_ITS ---
EXAMINATION: MR BRAIN WITH CONTRAST CLINICAL INFORMATION: Pineal cyst on noncontrast brain. COMPARISON: Noncontrast MR brain 06/26/2024. TECHNIQUE: MRI of the brain was obtained utilizing axial and coronal postcontrast T1 sequences. .8 ml IV Gadavist administered. FINDINGS: Refer to the prior report for noncontrast MR brain findings. There have been no definite changes in the appearance of the brain. There is a thin-walled 8mm pineal cyst with thin peripheral enhancement. There is no nodular enhancement suggest suspicious abnormalities. No significant surrounding mass effect. There is a small developmental venous anomaly in the right posterior frontal lobe (series 5, image 20; series 6, image 19). There is otherwise no abnormal intra or extra-axial contrast enhancement. No abnormal bone marrow enhancement. Normal ventricles, sulci, and cisterns. Mildly prominent adenoidal soft tissues again noted, consistent with reactive etiology. No additional extracranial soft tissue findings. MR/MR head/brain w con IMPRESSION: 1. 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 This favors benignity. 2. Small right frontal lobe DVA. 3. No additional abnormal intra or extra-axial contrast enhancement. Electronically signed by: Raymundo Bartholomew MD 07/22/2024 10:33 AM EDT
[2024-07-22] MEDS: gadobutroL 10 ML VIAL IVPUSH (10:07)
--- OUTSIDE RECORDS SUMMARY | 2024-07-22 10:13 | XMS_ITS | Encounter Summary ---
Author Organization [employer] Address [address] [facility] [address] [facility] [address] 7t [place] [address] Care Team Providers Care Media Law Faculty Member Name Role Phone Scarlett Berrios MD Primary Care Provider [phone] Reason for Visit * Reason Onset Date Comments Referral 06/20/2024 Encounter Details Date Type Department Care Team ([facility] st Contact Info) Description 06/20/2024 Telephone [facility] [address] [place] [address] Scarlett Berrios MD [address] [place] [address] Referral Social History Tobacco Use Types Packs/Day [...] Telephone Encounter - Cindi Steele RN - 06/30/2024 9:53 AM EST TC placed to patient [phone] to inform referral was faxed to [facility] PT for vestibular rehab as [facility] does not see patients for this dx. Patient advised she will receive a letter in the mail with appointment date and time or a call from the office with appointment date and time. Patient to f/u PRN. * Telephone Encounter - Cindi Steele RN - 06/21/2024 11:09 AM EST TC placed to [facility] [phone] to inquire on below. RN was informed [facility] does NOT see patients for vestibular therapy diagnosis. RN was informed patient needs to be referred to a vestibular rehab specifically (they believe [facility] in [place] offers this service). Please review referral and send to a new location. Thank you! * Telephone Encounter - Ananda Tan - 06/20/2024 4:00 PM EST [facility] to say that pt can't be treated in there facility because of pt dx code on referral sent over. Pt would have to be seen somewhere else. documented in this encounter Plan of Treatment Upcoming Encounters Date Type Department Care Team (Late st Contact Info) Description 09/16/2024 3:45 PM EDT Office Visit [facility] [address] [place] [address] Scarlett Berrios MD [address] [place] [address] documented as of this encounter Visit Diagnoses Not on filedocumented in this encounter Additional Health Concerns Assessment Noted Time PHQ-9 Depression Total Score: 12 024 2:36 PM EDT documented as of this encounter Care Teams Media Law Faculty Member Relationship Specialty Start Date End Date Scarlett Berrios MD [address] [place] [address] PCP - General Family Medicine 01/02/22 documented as of this encounter
--- OUTSIDE RECORDS SUMMARY | 2024-07-22 10:13 | XMS_ITS | Encounter Summary ---
Author Organization [employer] Address [address] [facility] 7t [place] [address] Care Team Providers Care Strategic Partnership Representative Name Role Phone Scarlett Berrios MD Primary Care Provider [phone] Reason for Referral * Consultation (Urgent) - Authorized Specialty Diagnoses / Procedures Referred By Contac t Referred To Contact Neurosurgery Diagnoses Pineal gland cyst Gillian Purdy MD [address] [place] [address] Phone: tel: fax: Neurosurgery, [address] [place], [place] Phone: tel: fax: Referral ID Status Reason Start Date Expiration Date Visits Requested Visits Authorized [id number] Authorized Specialty Services Required 07/04/2024 07/04/2025 6 6 Encounter Details Date Type Department Care Team ([facility] st Contact Info) Description 06/29/2024 Orders Only [facility] [address] [place], [place] [phone] Gillian Purdy MD [address] [place], [place] [phone] Pineal gland cyst (Primary Dx) Social History Tobacco Use Types [...] Description 09/16/2024 3:45 PM EDT Office Visit [facility] [address] [place] [address] Scarlett Berrios MD [address] [place] [address] Scheduled Referrals Name Type Priority Associated Diagnoses Order Schedule Referral to Neurosurgery Outpatient Referral Urgent Pineal gland cyst Expected: 06/29/2024 (Approximate), Expires: 06/29/2025 documented as of this encounter Visit Diagnoses Diagnosis Pineal gland cyst- Primary Other specified endocrine disorders documented in this encounter Additional Health Concerns Assessment Noted Time PHQ-9 Depression Total Score: 12 024 2:36 PM EDT documented as of this encounter Care Teams Strategic Partnership Representative Relationship Specialty Start Date End Date Scarlett Berrios MD [address] [place] [address] PCP - General Family Medicine 01/02/22 documented as of this encounter
--- OUTSIDE RECORDS SUMMARY | 2024-07-22 10:13 | XMS_ITS | Encounter Summary ---
Author Organization [employer] Address [address] [facility] [address] [place] [address] Care Team Providers Care Hand Therapist Name Role Phone Scarlett Berrios MD Primary Care Provider [phone] Reason for Visit * Reason Onset Date Comments Med Refill 11/10/2023 Encounter Details Date Type Department Care Team (Late st Contact Info) Description 11/10/2023 Refill [facility] OPTOMETRY [address] [place] [address] Yessenia Kapadia, OD [address] [place] [address] Social History Tobacco Use Types Packs/Day Years [...] Description 09/16/2024 3:45 PM EDT Office Visit [facility] [address] [place] [address] Scarlett Berrios MD [address] [place] [address] documented as of this encounter Visit Diagnoses Not on filedocumented in this encounter Additional Health Concerns Assessment Noted Time PHQ-9 Depression Total Score: 21 023 3:39 PM EDT documented as of this encounter Care Teams Hand Therapist Relationship Specialty Start Date End Date Scarlett Berrios MD [address] [place] [address] PCP - General Family Medicine 01/02/22 documented as of this encounter
--- OUTSIDE RECORDS SUMMARY | 2024-07-22 10:13 | XMS_ITS | Clinical Summary ---
Author Organization [facility] Address [address] [place] [address] Care Team Providers Care Studio Operation Engineer Name Role Phone Amaury Jones MD Primary Care Provider [phone] Medical History Medical History Date Comments Scoliosis [...] RESULTING AGENCY - 12/08/2018 3:56 PM EDT [id number] THINPREP PAP, IMAGED: NEGATIVE FOR SQUAMOUS INTRAEPITHELIAL [...] NEGATIVE; NEVER HAD PAP us Betty Denise [facility] CYTOLOGY ORDERABLES Final Result HISTORICAL TESTING LAB RESULTING AGENCY from Last 3 Months or Most Recently Relevant to Health Maintenance Care Teams Studio Operation Engineer Relationship Specialty Start Date End Date Amaury Jones MD [address] [address] PCP - General 08/20/18
--- OUTSIDE RECORDS SUMMARY | 2024-07-22 10:13 | XMS_ITS | Encounter Summary ---
Author Organization [employer] Address [address] [place] [address] Care Team Providers Care Fire Investigation Lieutenant Name Role Phone Scarlett Berrios MD Primary Care Provider [phone] Encounter Details Date Type Department Care Team (Late st Contact Info) Description 06/29/2024 Orders Only [facility] MEDICINE [address] [place] [address] Gillian Purdy MD [address] [place] [address] Social History Tobacco Use Types Packs/Day Years [...] Description 09/16/2024 3:45 PM EDT Office Visit [facility] MED[facility]INE [address] [place] [address] Scarlett Berrios MD [address] [place] [address] documented as of this encounter Visit Diagnoses Not on filedocumented in this encounter Additional Health Concerns Assessment Noted Time PHQ-9 Depression Total Score: 12 024 2:36 PM EDT documented as of this encounter Care Teams Fire Investigation Lieutenant Relationship Specialty Start Date End Date Scarlett Berrios MD [address] [place] [address] PCP - General Family Medicine 01/02/22 documented as of this encounter
--- OUTSIDE RECORDS SUMMARY | 2024-07-22 10:13 | XMS_ITS | Encounter Summary ---
Author Organization [employer] Address [address] [place] [address] Care Team Providers Care Manager Client Support Name Role Phone Scarlett Berrios MD Primary Care Provider [phone] Reason for Visit * Reason Onset Date Comments Results 06/29/2024 Encounter Details Date Type Department Care Team ([facility] st Contact Info) Description 06/29/2024 Telephone [facility] MEDICINE [address] [place] [address] Scarlett Berrios MD [address] [place] [address] Results Social History Tobacco Use Types Packs/Day Years [...] Telephone Encounter - Cindi Steele RN - 06/29/2024 1:20 PM EST TC placed to patient [phone] in regards to below message. Patient verbalized understanding andis aware she will receive a letter or a call from the office with appointment date and time. Patient to f/u PRN. * Telephone Encounter - Cindi Steele RN - 06/29/2024 10:31 AM EST TC placed to patient [phone] in regards to below message. 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 Patient would like to know the f/u plan in regards to this cyst. Patient reports she has had c/o a headache x2- 3 months and despite taking tylenol/ibuprofen the pain never resolves. Patient is inquiring if headaches are related to incidental finding and the f/u plan. Please advise. ----- Message from Gillian Acharya MD sent at 06/29/2024 9:51 AM EST ----- Please let patient know her brain MRI is normal, image did show possible sinusitis this may cause headaches, if she has symptoms please advise for her to be evaluated for this thank you documented in this encounter Plan of Treatment Upcoming Encounters Date Type Department Care Team (Late st Contact Info) Description 09/16/2024 3:45 PM EDT Office Visit [facility] MEDICINE [address] [place] [address] Scarlett Berrios MD [address] [place] [address] documented as of this encounter Visit Diagnoses Not on filedocumented in this encounter Additional Health Concerns Assessment Noted Time PHQ-9 Depression Total Score: 12 024 2:36 PM EDT documented as of this encounter Care Teams Manager Client Support Relationship Specialty Start Date End Date Scarlett Berrios MD [address] [place] [address] PCP - General Family Medicine 01/02/22 documented as of this encounter
--- OUTSIDE RECORDS SUMMARY | 2024-07-22 10:13 | XMS_ITS | Encounter Summary ---
Author Organization [employer] [facility] Address [address] [facility] 7t [place] [address] Care Team Providers Care Data Quality Consultant Name Role Phone Scarlett Berrios MD Primary Care Provider [phone] Encounter Details Date Type Department Care Team (Late Contact Info) Description 10/01/2022 Orders Only [facility] MEDICINE [address] [place] [address] [phone] Scarlett Berrios MD [address] [place] [address] [phone] Hypothyroidism, unspecified type (Primary Dx) Social History [...] Department Care Team (Late Contact Info) Description 09/16/2024 3:45 PM EDT Office Visit [facility] MEDICINE [address] [place] [address] [phone] Scarlett Berrios MD [address] [place] [address] [phone] documented as of this encounter Visit Diagnoses Diagnosis Hypothyroidism, unspecified type- Primary documented in this encounter Care Teams Data Quality Consultant Relationship Specialty Start Date End Date Scarlett Berrios MD [address] [place] [address] PCP - General Family Medicine 01/02/22 documented as of this encounter
--- OUTSIDE RECORDS SUMMARY | 2024-07-22 10:13 | XMS_ITS | Encounter Summary ---
Author Organization [employer] Address [address] [place] [address] Care Team Providers Care Bondactor Machine Operator Name Role Phone Scarlett Berrios MD Primary Care Provider [phone] Reason for Visit * Reason Onset Date Comments Referral 07/05/2024 Encounter Details Date Type Department Care Team ([facility] st Contact Info) Description 07/05/2024 Telephone [facility] MEDICINE [address] [place] [address] Scarlett Berrios MD [address] [place] [address] Referral Social History Tobacco Use Types Packs/Day [...] encounter Miscellaneous Notes * Telephone Encounter - Yifan Allred - 07/11/2024 3:16 PM EST Tc from pt requesting status on prior message. Pt states that she has been working on getting this for a while and would like to see if its possible to get it as soon as possible. Contact pt at [phone] * Telephone Encounter - Yifan Allred - 07/05/2024 12:00 PM EST Tc from pt requesting New Location for referral on 06/29/24 Due to the [facility] not being Able to do whatthe referral was intended for. Contact pt at [phone] documented in this encounter Plan of Treatment Upcoming Encounters Date Type Department Care Team (Late st Contact Info) Description 09/16/2024 3:45 PM EDT Office Visit [facility] MED[facility]INE [address] [place] [address] Scarlett Berrios MD [address] [place], [place] [phone] documented as of this encounter Visit Diagnoses Not on filedocumented in this encounter Additional Health Concerns Assessment Noted Time PHQ-9 Depression Total Score: 12 024 2:36 PM EDT documented as of this encounter Care Teams Bondactor Machine Operator Relationship Specialty Start Date End Date Scarlett Berrios MD [address] [place] [address] PCP - General Family Medicine 01/02/22 documented as of this encounter
--- OUTSIDE RECORDS SUMMARY | 2024-07-22 10:13 | XMS_ITS | Encounter Summary ---
Author Organization [employer] [facility] Address [address] [facility] 7t [place] [address] Care Team Providers Care Cuff Presser Name Role Phone Scarlett Berrios MD Primary Care Provider [phone] Encounter Details Date Type Department Care Team (Late Contact Info) Description 10/01/2022 Orders Only [facility] MEDICINE [address] [place] [address] [phone] Scarlett Berrios MD [address] [place] [address] [phone] Hypothyroidism, unspecified type (Primary Dx) Social History [...] Description 09/16/2024 3:45 PM EDT Office Visit [facility] MEDICINE [address] [place] [place] [address] [phone] Scarlett Berrios MD [address] [place] [address] [phone] documented as of this encounter Visit Diagnoses Diagnosis Hypothyroidism, unspecified type- Primary documented in this encounter Care Teams Cuff Presser Relationship Specialty Start Date End Date Scarlett Berrios MD [address] [place] [address] PCP - General Family Medicine 01/02/22 documented as of this encounter
--- OUTSIDE RECORDS SUMMARY | 2024-07-22 10:13 | XMS_ITS | Encounter Summary ---
Author Organization [employer] Address [address] 7[address] [place] [address] Care Team Providers Care Metallurgical Engineering Technician Name Role Phone Scarlett Berrios MD Primary Care Provider [phone] Reason for Visit * Reason Onset Date Comments Lab Orders 07/14/2024 Encounter Details Date Type Department Care Team ([facility] st Contact Info) Description 07/14/2024 Telephone [facility] MEDICINE [address] [place] [address] Scarlett Berrios MD [address] [place] [address] Lab Orders Social History Tobacco Use Types Packs/Day Years [...] Telephone Encounter - Cindi Steele RN - 07/15/2024 11:22 AM EST Noted. Per chart review, PCP has ordered MRI with contrast d/t NSG requesting MRI prior to patient being scheduled. TC placed to patient [phone] to inform MRI has been ordered and patient will receive a TC from hospital in regards to scheduling. Patient verbalized understanding. Patient to f/uPRN. * Telephone Encounter - Renny Nolan - 07/15/2024 9:56 AM EST TC from pt calling again regarding request of MRI of Brain with contrast . Tc from pt requesting a New Lab order for a MRI but with Contrast. Pt already did the MRI without Contrast. [facility] contacted the pt and requested for them to get a Order to do the Mri with contrast. Contact pt at [phone] * Telephone Encounter - Yifan Allred - 07/14/2024 1:31 PM EST Tc from pt requesting a New Lab order for a MRI but with Contrast. Pt already did the MRI without Contrast. [facility] contacted the pt and requested for them to get a Order to do the Mri with contrast. Contact pt at [phone] documented in this encounter Plan of Treatment Upcoming Encounters Date Type Department Care Team (Late st Contact Info) Description 09/16/2024 3:45 PM EDT Office Visit [facility] MEDICINE [address] [place], [place] [phone] Scarlett Berrios MD [address] [place] [address] [phone] documented as of this encounter Visit Diagnoses Not on filedocumented in this encounter Additional Health Concerns Assessment Noted Time PHQ-9 Depression Total Score: 12 024 2:36 PM EDT documented as of this encounter Care Teams Metallurgical Engineering Technician Relationship Specialty Start Date End Date Scarlett Berrios MD [address] [place] [phone] PCP - General Family Medicine 01/02/22 documented as of this encounter
--- OUTSIDE RECORDS SUMMARY | 2024-07-22 10:13 | XMS_ITS | Encounter Summary ---
Author Organization [employer] Address [address] 7[address] [place] [address] Care Team Providers Care Clamp Jig Assembler Name Role Phone Scarlett Berrios MD Primary Care Provider [phone] Reason for Referral * Imaging (Urgent) - Authorized Specialty Diagnoses / Procedures Referred By Contac t Referred To Contact Radiology Diagnoses Mass of pineal region Procedures Mr Brain w/ and w/o Contrast Scarlett Berrios MD [address] [place] [address] Phone: tel: fax: [facility] [address] [place] [address] Phone: tel: fax: Referral ID Status Reason Start Date Expiration Date V isits Requested Visits Authorized [id number] Authorized 07/18/2024 07/18/2025 1 1 Encounter Details Date Type Department Care Team (Late st Contact Info) Description 07/18/2024 Orders Only [facility] MEDICINE [address] [place] [address] Scarlett Berrios MD [address] [place], [place] [phone] Mass of pineal region (Primary Dx) Social History Tobacco Use Types [...] Description 09/16/2024 3:45 PM EDT Office Visit [facility] MEDICINE [address] [place] [address] Scarlett Berrios MD [address] [place] [address] Scheduled Orders Name Type Priority Associated Diagnoses Orde r Schedule Mr Brain w/ and w/o Contrast Imaging Urgent Mass of pineal region Expected: 07/18/2024, Expires: 07/18/2025 documented as of this encounter Visit Diagnoses Diagnosis Mass of pineal region- Primary documented in this encounter Additional Health Concerns Assessment Noted Time PHQ-9 Depression Total Score: 12 024 2:36 PM EDT documented as of this encounter Care Teams Clamp Jig Assembler Relationship Specialty Start Date End Date Scarlett Berrios MD [address] [place] [address] PCP - General Family Medicine 01/02/22 documented as of this encounter
--- OUTSIDE RECORDS SUMMARY | 2024-07-22 10:13 | XMS_ITS | Encounter Summary ---
Author Organization [employer] Address [address] 7[address] [place] [address] Care Team Providers Care Air Lift Operator Name Role Phone Scarlett Berrios MD Primary Care Provider [phone] Reason for Visit * Reason Onset Date Comments Referral 07/18/2024 Encounter Details Date Type Department Care Team ([facility] st Contact Info) Description 07/18/2024 Telephone [facility] MEDICINE [address] [place] [address] Scarlett Berrios MD [address] [place] [address] Referral Social History Tobacco Use Types Packs/Day [...] encounter Miscellaneous Notes * Telephone Encounter - Barbie Barbosa - 07/18/2024 11:37 AM EDT Tc from pt stating referral that was sent over for MRI to [facility] there was missing information as facility contact pt to notify. Pt states to please be in the look out as she will like to get this done and over. documented in this encounter Plan of Treatment Upcoming Encounters Date Type Department Care Team (Late st Contact Info) Description 09/16/2024 3:45 PM EDT Office Visit [facility] MEDICINE [address] [place] [phone] Scarlett Berrios MD [address] [place] [address] documented as of this encounter Visit Diagnoses Not on filedocumented in this encounter Additional Health Concerns Assessment Noted Time PHQ-9 Depression Total Score: 12 024 2:36 PM EDT documented as of this encounter Care Teams Air Lift Operator Relationship Specialty Start Date End Date Scarlett Berrios MD [address] [place] [address] PCP - General Family Medicine 01/02/22 documented as of this encounter
--- OUTSIDE RECORDS SUMMARY | 2024-07-22 10:13 | XMS_ITS | Clinical Summary ---
Author Organization [employer] Address [address] [facility] 7[address] [place] [address] Care Team Providers Care Racing Manager Name Role Phone Scarlett Berrios MD Primary Care Provider [phone] Allergies No known active allergies Medications * This document contains information received from the source organization and may not represent a complete record from that organization. neomycin-polymy alexei-dexAMETHaso ne 0.1 % ointment Apply to upper eyelids twice a day. 3.5 g 1 3 Active fluticasone (Flonase) 50 MCG/ACT nasal spray SPRAY 2 SPRAYS INTO EACH NOSTRIL IN THE MORNING 48 mL 1 4 Active omeprazole (PriLOSEC) [address] capsule TAKE 1 CAPSULE (20 MG) BY MOUTH BEFORE BREAKFAST DO NOT CRUSH OR CHEW 90 capsule 1 4 10/30/19 25 Active medroxyPROGESTE Kendall (Depo-Provera) 150 MG/ML injection Inject 1 mL (150 mg) into the muscle every 3 (three) months. 1 mL 3 4 Active levothyroxine (Synthroid) 137 MCG tablet Take 137 mcg by mouth before breakfast. 90 tablet 3 4 12/02/19 25 Active sertraline (Zoloft) 50 MG tablet Take 1 tablet (50 mg) by mouth Once per day. 90 tablet 3 4 11/27/19 25 Active cetirizine (ZyrTEC) 10 MG tablet Take 1 tablet (10 mg) by mouth in the morning. 90 tablet 1 4 Active hydrocortisone 2.5 % cream Apply pea sized amount to skin bid for 1 week 15 g 4 Active Magnesium Oxide -Mg Supplement 400 MG capsuleIndicati ons:Chronic daily headache TAKE 1 CAPSULE BY MOUTH ONCE PER DAY. 90 capsule 3 4 Active riboflavin (True Vitamin B2) 100 MG tabletIndicatio ns:Chronic daily headache TAKE 1 TABLET BY MOUTH EVERY DAY 90 tablet 3 4 Active aspirin-acetami nophen-caffeine (Excedrin Migraine) 250-250-65 MG tablet Take 1 tablet by mouth every 6 (six) hours if needed for headaches for up to 10 days. 30 tablet 5 07/26/19 25 Active Melatonin 3 MG capsule Take 3 mg by mouth if needed at bedtime (insomnia). 90 capsule 3 5 Active hydrOXYzine HCl (Atarax) 25 MG tablet Take 1 tablet (25 mg) by mouth if needed in the morning, at noon, and at bedtime for anxiety (insomnia). 90 tablet 5 10/14/19 25 Active ibuprofen (IBU) 800 MG tabletIndicatio ns:Vertigo,Dora ntractable headache, unspecified chronicity pattern, unspecified headache type 1 tablet every 8 hours as needed for severe headache 21 tablet 4 07/16/19 25 Discontinu ed(Therapy completed) Hospital, Clinic, or Other Facility Administered Medication Ordered Dose Route Frequency Start Date End Date Status medroxyPROGESTERone (Depo-Provera) injection 150 mgIndications:Surveill ance for Depo-Provera contraception 150 mg IM Every 3 months 04/20/2024 07/14/2025 Active Active Problems Problem Noted Date Diagnosed Date Mass of pineal region 07/15/2024 Assessment & Plan (07/15/2024 12:35 PM EST): Reviewed MRI results of non-contrasted brain MRI with 13mm pineal gland cyst and 17mm [employer] tonsil [facility] asking for more imaging with contrasted MRI before they see her, I ordered this urgently today DAVISON lasting more intensely. Trial Excedrin migraine R eye and ear is painful as well ATI will see for vestibular rehab starting later this month [facility] referral, phone number given Not sleeping well, can't sleep more than 3 hours, will trial Melatonin and then Attarax Dizziness and giddiness 06/17/2024 Vestibular disequilibrium involving both inner e ars 06/17/2024 Headache 06/17/2024 Assessment & Plan (06/17/2024 12:36 PM EST): In light of persistent dizziness and headaches for more than 2 months in adjunct patient I will order an MRI of the brain, I will refer her also to specialist I advised to maintain hydration I advised to change positions slowly ED precautions were reviewed with patient Letter for work to be generated Vertigo 05/03/2024 Assessment & Plan (05/03/2024 11:59 [...] OP services placed on 02/09/23 with [facility] ([phone]). Recommended adding self-care and mindfulness techniques into daily routine. At this time Kasey Mccartney meets criteria for Visit Diagnoses: Problem List Items Addressed This Visit Other Severe episode of recurrent major depressive disorder, without psychotic features (CMS/HCC) Family problems Grief associated with loss of fetus Patient ready to address current needs Yes Strengths include readiness to change PLAN: 1. Follow up with [facility]: Not recommended for follow-up 2. Patient goal [...] report. Dicussed protective factors, safety plan, provided [facility] crisis line information. Plan is to [...] to change PLAN: 1. Follow up with [facility]: Recommended for follow-up: Pt will see clinician [...] OP services placed on 02/09/23 with [facility] ([phone]). Recommended adding self-care and mindfulness techniques into daily routine. At this time Kasey Mccartney meets criteria for Visit Diagnoses: Problem List Items Addressed This Visit Other Severe episode of recurrent major depressive disorder, without psychotic features (CMS/HCC) Family problems Grief associated with loss of fetus Patient ready to address current needs Yes Strengths include readiness to change PLAN: 1. Follow up with [facility]: Not recommended for follow-up 2. Patient goal [...] for OP services placed on 02/09/23 with [facility] ([phone]). Recommended adding self-care and mindfulness techniques into daily routine. At this time Kasey Mccartney meets criteria for Visit Diagnoses: Problem List Items Addressed This Visit Other Severe episode of recurrent major depressive disorder, without psychotic features (CMS/HCC) Family problems Grief associated with loss of fetus Patient ready to address current needs Yes Strengths include readiness to change PLAN: 1. Follow up with [facility]: Not recommended for follow-up 2. Patient goal is start individual therapy 3. Behavioral Recommendations a. OP BH referral (in progress) b. Incorporate mindfulness techniques and self-care into daily routine c. Continue taking medication to treat anxiety symptoms Assessment & Plan (02/18/2023 4:39 PM EDT): Continue Zoloft 25mg daily Seen by [facility] after my exam Assessment & Plan (02/06/2023 4:28 PM EDT): Patient addressed depressive symptoms, grief due to losing her baby and family problems. Lack of social supports, severe depression and recent miscarriage are leading to an increase of symptoms. Thoughts of self-harm and history of self- harm in the past per patient's report. Dicussed protective factors, safety plan, provided [facility] crisis line information. Plan is to [...] to change PLAN: 1. Follow up with [facility]: Recommended for follow-up: Pt will see clinician [...] after Depo with irregular menses Established with [facility], continue workup there Constipation [...] will recheck TSH in 6-8 weeks with box sealing machine feeder Assessment & Plan (08/07/2022 2:54 PM EDT): [...] spray prn. Scoliosis (and kyphoscoliosis), idiopathic 11/24 Resolved Problems Problem Noted Date Diagnosed Date Resolved Date Pituitary mass 07/15/2024 07/15/2024 Encounters Date Type Department Care Team Description 07/18/2024 Orders Only [facility] [address] [place] [phone] Scarlett Berrios MD Mass of pineal region (Primary Dx) 07/18/2024 Telephone [facility] [address] [place] [address] Scarlett Berrios MD Referral 07/18/2024 Telephone [facility] [address] [place] [address] Scarlett Berrios MD 07/15/2024 11:00 AM EST Telemedicine [facility] [address] [place] [address] Scarlett Berrios MD Mass of pineal region (Primary Dx); Vestibular disequilibrium involving both inner ears; Vertigo 07/15/2024 Travel 07/14/[address] [address] Scarlett Berrios MD Lab Orders 07/05/[address] [place] [address] Scarlett Berrios MD Referral 06/29/2024 Orders Only [address] [address] Gillian Purdy MD Pineal gland cyst (Primary Dx) 06/29/[address] [place] [address] Scarlett Berrios MD Results 06/29/2024 Orders Only [address] [place] [address] Gillian Purdy MD 06/29/2024 Travel 06/20/[address] [address] Scarlett Berrios MD Referral 06/17/2024 11:30 AM EST Telemedicine [address] [address] Gillian Purdy MD Dizziness and giddiness (Primary Dx); Vestibular disequilibrium involving both inner ears; Nonintractable episodic headache, unspecified headache type 06/17/[address] [address] Scarlett Berrios MD Letter for School/Work 06/17/2024 Travel 06/17/[address] [address] Scarlett Berrios MD 05/03/2024 12:30 PM EST Telemedicine [address] [address] Rae Colindres NP Vertigo (Primary Dx); Nonintractable headache, unspecified chronicity pattern, unspecified headache type 04/28/2024 9:40 AM EST Office Visit [facility] [address] [address] Jono Hobbs MD Hypothyroidism, unspecified type (Primary Dx); Benign paroxysmal positional vertigo due to bilateral vestibular disorder 04/28/2024 Telephone [facility] [address] [place] [address] Aliza Soria, RN WIC triage 04/27/2024 Telephone [facility] [address] [place] [address] Brook Delgado, TOÑITO Nurse Triage from Last 3 Months Immunizations Name Administration Dates Next Due DTaP 12/16/2001, 9,07/13/1998,04/20,1997 HPV, Quadrivalent 12/23/2012,05/08/2011,11/14/19 10 Hep A, ped/adol, 2 dose 01/02/2014,12/23/2012 Hep B, Adolescent or Pediatric 07/13/1998,1997,1997 Hib ([facility]) 02/12/1999, 9,04/20/1998,11/09 IPV 09/02/2001, 9,04/20/1998,11/09 Influenza Injectable [...] your housing situation today? I have gianni sing 11/24/[address] you li [...] Description 09/16/2024 3:45 PM EDT Office Visit [facility] [address] [place] [address] Scarlett Berrios MD [address] [place], [place] [phone] Health Maintenance Due Date Last Done Comments Alcohol/Substance Use Screening 2009 COVID-19 Vaccine ( season) 2024 05/16/2021, 04/25/2021 Influenza Vaccine (#1) 2024 8, 04/01/2016, 02/27/2015, Additional history exists Depression Monitoring (PHQ-9) 06/03/2024 12/02/2023, 12/02/2023 SDOH Screening 11/23/2024 11/24/2023 Depression Screening 12/01/2024 12/02/2023, 12/02/19 Family Planning (PISQ) 04/20/2025 04/20/2024 Tobacco Screening 07/15/2025 07/15/2024 Pap Smear 02/18/2026 02/18/2023 DTaP/Tdap/Td Vaccines (8 [...] 5 Years) and At-Risk Patients (6 to 49) Years) Aged Out No longer eligible based on patient's age to complete this topic RSV under 20 months Aged Out No longe r eligible based on patient's age to complete this topic Rotavirus Vaccines Aged Out No longer eligible based on patient's age to complete this topic Procedures Procedure Name Priority Date/Time Associated Diagnosis Comments MR BRAIN WO CONTRAST Routine 06/28/2024 11:18 AM EST Dizziness and giddiness Nonintractable episodic headache, unspecified headache type POCT , URINE Routine 04/28/2024 9:48 AM EST Benign paroxysmal positional vertigo due to bilateral vestibular disorder PAP SMEAR Routine 02/18/2023 4:22 PM EDT HEPATITIS C AB W/REFL TO HCV RNA, QN, PCR Routine 08/06/2022 2:49 PM EDT Encounter for screening examination for sexually transmitted disease HIV 1 RNA, QUANTITATIVE REAL TIME PCR Routine 08/06/2022 2:49 PM EDT Encounter for screening examination for sexually transmitted disease from Last 3 Months or Most Recently Relevant to Health Maintenance Results * MR Brain w/o Contrast (06/28/2024 11:18 AM EST) Anatomical Region Laterality Modality Brain Magnetic Resonan ce 06/28/2024 11:1 8 AM EST Narrative 06/28/2024 11:20 AM EST ? [facility] ?[address] ?[place] [address] ? Magnetic Resonance Report ? Signed ? Patient: Wiggins Bib,Kasey ?MR#: [id number] ?? [id number] ? : 1995 ?Acct:[id number] ? Age/Sex: 28 / F ?ADM Date: 02/16/25 ? Loc: HO.MRI ? Attending Laurie Acharya MD ? Ordering Physician: Gillian Purdy MD ?? Date of Service: 06/26/24 ?? Procedure(s): MR head/brain wo con ?? Accession Number(s): [id number] ? cc: Gillian Purdy MD; Scarlett Berrios ? CLINICAL HISTORY: persistent dizziness with headache (2 months) ? MR Brain without gadolinium ? Comparison: None ? Findings: ?? No restricted diffusion. ?? No intracranial mass or hemorrhage. ?? No midline shift. No hydrocephalus. ?? 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 ? The orbits are normal. ?? The sinuses and mastoid air cells are clear. ?? No focal bone lesion. ? Prominent nasopharyngeal tonsil measuring up to 17 mm in AP dimension may ?? be reactive or inflammatory/infectious in nature. Correlate clinically. ? IMPRESSION: ?? 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 left vertebral artery). ?? Prominent nasopharyngeal tonsil measuring up to 17 mm in AP dimension may ?? be reactive or inflammatory/infectious in nature. Correlate clinically. ? This document has been electronically signed by: Jazzy Bradley MD on ?? 06/28/2024 11:18:45 ? Dictated By: ?Jazzy Bradley MD ? Signed By: ?<Electronically signed by Jazzy Bradley MD in OV> ? 06/28/24 1119 ? DD/ 1118 ? TD/TT: 06/28/24 1118 ? Horseback Excavator: ? Procedure Note Bola, Caryn - 06/28/2024 [place] [address] Magnetic Resonance Report Signed Patient: Kasey MacdonaldMR#: [id number] : 1995Acct:[id number] Age/Sex: 28 / FADM Date: 06/26/24 Loc: HO.MRI Attending Dr: Gillian Acharya MD Ordering Physician: Gillian Purdy MD Date of Service: 06/26/24 Procedure(s): MR head/brain wo con Accession Number(s): [id number] cc: Gillian Purdy MD; Scarlett Berrios CLINICAL HISTORY: persistent dizziness with headache (2 months) MR Brain without gadolinium Comparison: None Findings: No restricted diffusion. No intracranial mass or hemorrhage. No midline shift. No hydrocephalus. 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 The orbits are normal. The sinuses and mastoid air cells are clear. No focal bone lesion. Prominent nasopharyngeal tonsil measuring up to 17 mm in AP dimension may be reactive or inflammatory/infectious in nature. Correlate clinically. 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 Prominent nasopharyngeal tonsil measuring up to 17 mm in AP dimension may be reactive or inflammatory/infectious in nature. Correlate clinically. This document has been electronically signed by: Jazzy Bradley MD on 06/28/2024 11:18:45 Dictated By: Jazzy Bradley MD Signed By: <Electronically signed by Jazzy Bradley MD in OV> 06/28/24 1119 DD/ 1118 TD/TT: 06/28/24 1118 Horseback Excavator: us Gillian Acharya MD IMG MRI PROCEDURES Ed ited Result - Final * POCT , urine manually resulted (04/28/2024 9:48 AM EST) Preg Test, Ur Negative Negative, Indeterminate, None Detected, Invalid, Specimen unsatisfactory for evaluation, Weakly Positive Urine 04/28/2024 9:48 AM EST us Jono Hobbs MD POINT OF CARE TEST ENTER/EDIT OR DERABLES Final Result * Pap Smear (02/18/2023 4:22 PM EDT) 02/18/2023 4:22 PM EDT 02/19/2023 7:20 AM EDT Narrative [facility] - 02/20/2023 9:47 AM EDT ----- ------- Name: Kasey Macdonald ?Age/Sex: 27/F ? : 1995 Unit#: [id number] ?? Attend Dr: Scarlett Berrios ?Re02/18/23 ?Status: DEP REF ? [facility] ? Disch: ? ----- ------- SPEC : [id number] ?RECD: 02/19/23 ? STATUS: ??SOUT ? REQ NUM: [id number] ? JESSICA: 02/18/23 ? SUBM DR: Scarlett [...] Berrios MD LAB CYTOLOGY ORDERABLES Final Result [facility] [address] [place] [phone] * Hepatitis C Antibody with Reflex to HCV, RNA, Quantitative, Real-Time PCR (08/06/2022 2:49 PM EDT) Hepatitis C Antibody NON-REACT GREG NON-REACT GREG Managed Methods Index 0.18 <1.00 Managed Methods Comment: HCV antibody was non-reactive. There is no laboratory evidence of HCV infection. In most cases, no further action is required. However, if recent HCV exposure is suspected, a test for HCV RNA (test code 74933) is suggested. For additional information please refer to http://education.[employer]/faq/STO88t9 (This link is being provided for informational/ educational purposes only.) Blood Venous blood specimen / Unknown 08/06/2022 2:49 PM EDT 08/06/2022 2:50 PM EDT Narrative [facility] - 08/08/2022 11:04 AM EDT FASTING:NO FASTING: NO Scarlett Berrios MD LAB BLOOD ORDERABLES Final Res ult Performing Organization Address City/[facility]/ZIP Co de Phone Number [facility] [address], [facility] [place] [address] [facility] [address] [place] [address] * HIV-1 RNA, Quantitative, Real-Time PCR (08/06/2022 2:49 PM EDT) [facility] HIV 1 RNA, QN PCR NOT DETECTED NOT DETECTED copies/mL [facility] HIV 1 RNA, QN PCR NOT DETECTED NOT DETECTED Log copies/mL [facility] Comment: This test was performed using Real-Time Polymerase Chain Reaction. Reportable Range: 20 copies/mL to 10,000,000 copies/mL (1.30 log copies/mL to 7.00 log copies/mL). Blood Venous blood specimen / Unknown 08/06/2022 2:49 PM EDT 08/06/2022 2:50 PM EDT Narrative [facility] - 08/08/2022 11:04 AM EDT FASTING:NO FASTING: NO Scarlett Berrios MD LAB BLOOD ORDERABLES Final Res ult Performing Organization Address [facility] de Phone Number [facility] [address], [facility] [place] [address] [facility] [address] [place] [address] from Last 3 Months or Most Recently Relevant to Health Maintenance Insurance [facility] C3 HSN PARTIAL Care Teams Racing Manager Relationship Specialty Start Date End Date Scarlett Berrios MD [address] [place] [phone] PCP - General Family Medicine 01/02/22
--- OUTSIDE RECORDS SUMMARY | 2024-07-22 10:13 | XMS_ITS | Encounter Summary ---
Author Organization [employer] Address [address] [facility] [place] [address] Care Team Providers Care Master Police Detective Name Role Phone Scarlett Berrios MD Primary Care Provider [phone] Encounter Details Date Type Department Care Team (Latest Contact Info) Description 06/29/2024 Travel Social History Tobacco Use Types Packs/Day [...] Description 09/16/2024 3:45 PM EDT Office Visit [facility] [address] [place] [address] Scarlett Berrios MD [address] [place] [address] documented as of this encounter Visit Diagnoses Not on filedocumented in this encounter Additional Health Concerns Assessment Noted Time PHQ-9 Depression Total Score: 12 024 2:36 PM EDT documented as of this encounter Care Teams Master Police Detective Relationship Specialty Start Date End Date Scarlett Berrios MD [address] [place], [place] [phone] PCP - General Family Medicine 01/02/22 documented as of this encounter
--- OUTSIDE RECORDS SUMMARY | 2024-07-22 10:13 | XMS_ITS | Encounter Summary ---
Author Organization [employer] Address [address] [facility] [address] [place] [address] Care Team Providers Care Assistant Office Manager Name Role Phone Scarlett Berrios MD Primary Care Provider [phone] Encounter Details Date Type Department Care Team (Latest Contact Info) Description 07/15/2024 Travel Social History Tobacco Use Types Packs/Day [...] Description 09/16/2024 3:45 PM EDT Office Visit [facility] [address] [place] [address] Scarlett Berrios MD [address] [place] [address] documented as of this encounter Visit Diagnoses Not on filedocumented in this encounter Additional Health Concerns Assessment Noted Time PHQ-9 Depression Total Score: 12 024 2:36 PM EDT documented as of this encounter Care Teams Assistant Office Manager Relationship Specialty Start Date End Date Scarlett Berrios MD [address] [place], [place] [phone] PCP - General Family Medicine 01/02/22 documented as of this encounter
--- OUTSIDE RECORDS SUMMARY | 2024-07-22 10:13 | XMS_ITS | Encounter Summary ---
Author Organization [employer] Address [address] [facility] [facility] [address] [place] [address] Care Team Providers Care Song Lyricist Name Role Phone Scarlett Berrios MD Primary Care Provider [phone] Encounter Details Date Type Department Care Team (Late st Contact Info) Description 07/18/2024 Telephone [facility] [address] [place] [address] Scarlett Berrios MD [address] [place] [address] Social History Tobacco Use Types Packs/Day Years [...] encounter Miscellaneous Notes * Telephone Encounter - Yoandy Steele - 07/18/2024 8:54 AM EDT Incoming call from Ayana at [facility] requesting MRI order to be update to MRI Brain WWO Contrast . Please review and advise. documented in this encounter Plan of Treatment Upcoming Encounters Date Type Department Care Team (Late st Contact Info) Description 09/16/2024 3:45 PM EDT Office Visit [facility] [address] [place] [address] Scarlett Berrios MD [address] [place] [address] documented as of this encounter Visit Diagnoses Not on filedocumented in this encounter Additional Health Concerns Assessment Noted Time PHQ-9 Depression Total Score: 12 024 2:36 PM EDT documented as of this encounter Care Teams Song Lyricist Relationship Specialty Start Date End Date Scarlett Berrios MD [address] [place] [phone] PCP - General Family Medicine 01/02/22 documented as of this encounter
--- OUTSIDE RECORDS SUMMARY | 2024-07-22 10:13 | XMS_ITS | Encounter Summary ---
Author Organization [employer] Address [address] [place] [address] Care Team Providers Care Knitter Mechanic Name Role Phone Scarlett Berrios MD Primary Care Provider [phone] Reason for Referral * Imaging (Urgent) - Canceled Specialty Diagnoses / Procedures Referred By Cj nielsen Referred To Contact Radiology Diagnoses Mass of pineal region Procedures MRI BRAIN W CONTRAST Scarlett Berrios MD [address] [place] [address] Phone: tel: fax: [facility] [address] [place] [address] Phone: tel: fax: Referral ID Status Reason Start Date Expiration Date V isits Requested Visits Authorized [id number] Canceled 07/15/2024 07/15/2025 1 1 Encounter Details Date Type Department Care Team (Latest Contact Info) Description 07/15/2024 11:00 AM EST Telemedicine [facility] [address] [place] [address] Scarlett Berrios MD [address], [place] [phone] Mass of pineal region (Primary Dx); Vestibular disequilibrium involving both inner ears; Vertigo Social History Tobacco Use Types Packs/Day Years [...] as of this encounter Progress Notes * Scarlett Berrios MD - 07/15/2024 11:00 AM EST SUBJECTIVE: Kasey Mccartney is a 28 y.o. 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 Excedrin migraine R eye and ear is painful as well [facility] will see for vestibular rehab [facility] referral Not sleeping well, can't sleep more than 3 hours, will trial Melatonin and then Attarax Interim Updates: CLINICAL HISTORY: persistent dizziness with headache (2 [...] reactive or inflammatory/infectious in nature. Correlate clinically. 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 Respiratory: Negative. Cardiovascular: Negative. Gastrointestinal: Negative. Neurological: Positive for dizziness and headaches. 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 Trial Excedrin migraine R eye and ear is painful as well [facility] will see for vestibular rehab starting later this month [facility] referral, phone number given Not sleeping well, can't sleep more than 3 hours, will trial Melatonin and then Attarax Relevant Orders MRI BRAIN W CONTRAST Follow Up: per recall or sooner prn No Known Allergies Current Outpatient Medications: dftwais-sqhvtwbhvavth-qepicpgj (Excedrin Migraine) 250-250-65 MG tablet, Take 1 tablet by mouth every 6 (six) hours if needed for headaches for up to 10 days., Disp: 30 tablet, Rfl: 0 cetirizine (ZyrTEC) 10 MG tablet, Take 1 tablet (10 mg) by mouth in the morning., Disp: 90 tablet, Rfl: 1 fluticasone (Flonase) 50 MCG/ACT nasal spray, SPRAY 2 SPRAYS INTO EACH NOSTRIL IN THE MORNING, Disp: 48 mL, Rfl: 1 hydrocortisone 2.5 % cream, Apply pea sized amount to skin bid for 1 week, Disp: 15 g, Rfl: 0 hydrOXYzine HCl (Atarax) 25 MG tablet, Take 1 tablet (25 mg) by mouth if needed in the morning, at noon, and at bedtime for anxiety (insomnia)., Disp: 90 tablet, Rfl: 0 levothyroxine (Synthroid) 137 MCG tablet, Take 137 mcg by mouth before breakfast., Disp: 90 tablet,Rfl: 3 Magnesium Oxide -Mg Supplement 400 MG capsule, TAKE 1 CAPSULE BY MOUTH ONCE PER DAY., Disp: 90 capsule, Rfl: 3 medroxyPROGESTERone (Depo-Provera) 150 MG/ML injection, Inject 1 mL (150 mg) into the muscle every 3 (three) months., Disp: 1 mL, Rfl: 3 Melatonin 3 MG capsule, Take 3 mg by mouth if needed at bedtime (insomnia)., Disp: 90 capsule, Rfl:3 htxmtlxh-vblnztlpn-ujlWSASUffxgx 0.1 % ointment, Apply to upper eyelids twice a day., Disp: 3.5 g, Rfl: 1 omeprazole (PriLOSEC) [address] capsule, TAKE 1 CAPSULE (20 MG) BY MOUTH BEFORE BREAKFAST DO NOT CRUSH OR CHEW, Disp: 90 capsule, Rfl: 1 riboflavin (True Vitamin B2) 100 MG tablet, TAKE 1 TABLET BY MOUTH EVERY DAY, Disp: 90 tablet, Rfl:3 sertraline (Zoloft) 50 MG tablet, Take 1 tablet (50 mg) by mouth Once per day., Disp: 90 tablet, Rfl: 3 Current Facility-Administered Medications: medroxyPROGESTERone (Depo-Provera) injection 150 mg, 150 mg, Intramuscular, q3 months, Yanet Cristobal, DO, 150 mg at 04/20/24 1100 Nauruan Translation: Patient is bilingual and declines translation services documented in this encounter Miscellaneous Notes * Assessment & Plan Note - Scarlett Berrios MD - 07/15/2024 10:29 AM EST Associated Problem(s): Mass of pineal region Reviewed MRI results of non-contrasted brain MRI with 13mm pineal gland cyst and 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 Trial Excedrin migraine R eye and ear is painful as well [facility] will see for vestibular rehab starting later this month [facility] referral, phone number given Not sleeping well, can't sleep more than 3 hours, will trial Melatonin and then Attarax documented in this encounter Plan of Treatment Upcoming Encounters Date Type Department Care Team (Late st Contact Info) Description 09/16/2024 3:45 PM EDT Office Visit [facility] [address] [place] [phone] Scarlett Berrios MD [address] [place] [phone] Scheduled Orders Name Type Priority Associated Diagnoses Orde r Schedule MRI BRAIN W CONTRAST Imaging Urgent Mass of pineal region Expected: 07/15/2024, Expires: 07/15/2025 documented as of this encounter Visit Diagnoses Diagnosis Mass of pineal region- Primary Vestibular disequilibrium involving both inner ears Vertigo Dizziness and giddiness documented in this encounter Additional Health Concerns Assessment Noted Time PHQ-9 Depression Total Score: 12 12/01/ 024 2:36 PM EDT documented as of this encounter Care Teams Knitter Mechanic Relationship Specialty Start Date End Date Scarlett Berrios MD [address] [place] [phone] PCP - General Family Medicine 01/02/22 documented as of this encounter
--- OUTSIDE RECORDS SUMMARY | 2024-07-22 10:13 | XMS_ITS | Encounter Summary ---
Author Organization [employer] [facility] Address [address] [place] [address] Care Team Providers Care Hydroelectric Systems Technician Name Role Phone Scarlett Berrios MD Primary Care Provider [phone] Encounter Details Date Type Department Care Team (Late Contact Info) Description 09/24/2022 Orders Only [facility] [address] [place] [phone] Scarlett Berrios MD [address] [place] [address] [phone] Blurry vision, bilateral (Primary Dx) Social History [...] Description 09/16/2024 3:45 PM EDT Office Visit [facility] [address] [place] [address] [phone] Scarlett Berrios MD [address] [place] [address] [phone] documented as of this encounter Visit Diagnoses Diagnosis Blurry vision, bilateral- Primary Other specified visual disturbances documented in this encounter Care Teams Hydroelectric Systems Technician Relationship Specialty Start Date End Date Scarlett Berrios MD [address] [place] [address] PCP - General Family Medicine 01/02/22 documented as of this encounter
== END 2024-07-22 09:22 | disposition home or self-care (01) ==
LOC: HO.MRI 09:21
PROVIDERS: PCP General Practice; Visit Provider General Practice
DX: G93.89 Other specified disorders of brain (principal)
CPT/HCPCS: 70552; A9585

== ENCOUNTER 2024-09-16 16:30 | Outpatient (REF) | payer MEDICAID, SELFPAY ==
[2024-09-16 17:44] LABS: MANUAL DIFF FLAG NO
[2024-09-16 17:49] LABS: Basophils Absolute Auto 0.1 X10*3/uL (0.0-0.2); Basophils Percent Auto 0.8 % (0-2); Eosinophils Absolute Auto 0.2 X10*3/uL (0.0-0.4); Eosinophils Percent Auto 1.6 % (0-4); Hematocrit 40.8 % (37.0-47.0); Hemoglobin 14.1 g/dl (12.0-16.0); Imm Gran Abs Auto 0.04 X10*3/uL (0.00-0.03); Imm Gran Pct Auto 0.3 % (0.0-0.4); Lymphocytes Absolute Auto 2.6 X10*3/uL (1.2-4.9); Lymphocytes Percent Auto 20.8 % (20-40); Mean Corpuscular HGB Conc 34.6 g/dl (31.0-35.0); Mean Corpuscular Hemoglobin 29.3 pg (27.0-33.0); Mean Corpuscular Volume 84.6 fL (80.0-98.0); Mean Platelet Volume 10.6 fL (9.4-12.3); Monocytes Percent Auto 8.4 % (2-11); Neutrophils Absolute Auto 8.5 x10*3/uL (2.0-8.3); Neutrophils Percent Auto 68.1 % (45-73); Platelet Count 347 X10*3/uL (160-400); Red Blood Count 4.82 X10*6/uL (4.20-5.50); Red Cell Distribution Width 12.8 % (11.0-16.0); White Blood Count 12.5 X10*3/uL (4.8-10.8)
[2024-09-16 18:43] LABS: Alanine Aminotransferase 15 U/L (0-31); Albumin Level 4.1 g/dL (3.5-5.0); Alkaline Phosphatase 91 U/L (39-117); Anion Gap 11 (12-20); Aspartate Amino Transferase 23 U/L (5-31); Bilirubin Total 0.2 mg/dL (0.0-1.0); Blood Urea Nitrogen 8 mg/dL (9-16); Calcium 9.1 mg/dL (8.4-10.2); Carbon Dioxide 24 mmol/L (22-29); Chloride 107 mmol/L (96-108); Cholesterol 180 mg/dL (<200); Estimated Glomerular Filt Rate > 60; Glucose Random 92 mg/dL (60-115); HDL Cholesterol 38 mg/dL (>40); LDL Cholesterol Calculated 112 mg/dL (<100); Potassium 4.1 mmol/L (3.3-5.1); Sodium 138 mmol/L (135-145); Triglycerides 154 mg/dL (<150)
[2024-09-16 19:01] LABS: TSH reflex Free T4 1.87 uIU/mL (0.32-4.0)
== END 2024-09-16 16:31 | disposition home or self-care (01) ==
LOC: HO.HHCL 16:30
PROVIDERS: Visit Provider General Practice
DX: R00.2 Palpitations (principal); E66.811 Obesity, class 1; Z68.31 Body mass index [BMI] 31.0-31.9, adult
CPT/HCPCS: 36415; 80053; 80061; 84443; 85025

== ENCOUNTER 2024-10-11 14:00 | Outpatient (REF) | payer SELFPAY ==
--- OUTSIDE RECORDS SUMMARY | 2024-10-11 15:46 | XMS_ITS | Clinical Summary ---
Author Organization [employer] Address [address] [facility] [address] [place] [address] Care Team Providers Care Email Engineer Name Role Phone Scarlett Berrios MD Primary Care Provider [phone] Allergies No known active allergies Medications * This document contains information received from the source organization and may not represent a complete record from that organization. fluticasone (Flonase) 50 MCG/ACT nasal spray SPRAY 2 SPRAYS INTO EACH NOSTRIL IN THE MORNING 48 mL 1 4 Active omeprazole (PriLOSEC) [address] capsule TAKE 1 CAPSULE (20 MG) BY MOUTH BEFORE BREAKFAST DO NOT CRUSH OR CHEW 90 capsule 1 4 10/30/19 25 Active levothyroxine (Synthroid) 137 MCG tablet Take [...] EVERY DAY 90 tablet 3 4 Active Melatonin 3 MG capsule Take 3 mg by mouth if needed at bedtime (insomnia). 90 capsule 3 5 Active hydrOXYzine HCl (Atarax) 25 MG tablet TAKE 1 TAB BY MOUTH IF NEEDED IN THE MORNING, AT NOON, AND AT BEDTIME FOR ANXIETY (INSOMNIA). 90 tablet 5 Active methylPREDNISol one (Medrol Dospak) 4 MG tablets 1 PACK/PACKET BY MOUTH DAILY,X6 DAYS,INSTR: DIRECTED ON PACKAGE LABELING 5 Active topiramate (Topamax Sprinkle) 25 MG capsuleIndicati ons:Chronic migraine with aura without status migrainosus, not intractable Take 25 mg by mouth. 5 Active riboflavin (Vitamin B-2) 400 MG tabletIndicatio ns:Chronic migraine with aura without status migrainosus, not intractable TAKE 1 TABLET BY MOUTH DAILY,X30 DAYS,INSTR:DO SE CHANGE 5 Active neomycin-polymy alexei-dexAMETHaso ne 0.1 % ointment Apply to upper eyelids twice a day. 3.5 g 1 3 09/17/19 25 Discontinu ed(Therapy completed) medroxyPROGESTE Kendall (Depo-Provera) 150 MG/ML injection Inject 1 mL (150 mg) into the muscle every 3 (three) months. 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 Recommended adding self-care and mindfulness techniques into daily routine. At this time Kasey Mccartney meets criteria for Visit Diagnoses: Problem List Items Addressed This Visit Other Severe episode of recurrent major depressive disorder, without psychotic features (CMS/HCC) Family problems Grief associated with loss of fetus Patient ready to address current needs Yes Strengths include readiness to change PLAN: 1. Follow up with [facility]: Not recommended for follow-up 2. Patient goal [...] harm in the past per patient's report. Moralesed protective factors, safety plan, provided [facility] crisis line information. Plan is to referred [...] to change PLAN: 1. Follow up with C: Recommended for follow-up: Pt will see clinician [...] OP services placed on 02/09/23 with Kyara ([phone]). Recommended adding self-care and mindfulness techniques into daily routine. At this time Kasey Mccartney meets criteria for Visit Diagnoses: Problem List Items Addressed This Visit Other Severe episode of recurrent major depressive disorder, without psychotic features (CMS/HCC) Family problems Grief associated with loss of fetus Patient ready to address current needs Yes Strengths include readiness to change PLAN: 1. Follow up with [facility]: Not recommended for follow-up 2. Patient goal [...] OP services placed on 02/09/23 with Kyara ([phone]). Recommended adding self-care and mindfulness techniques into daily routine. At this time Kasey Mccartney meets criteria for Visit Diagnoses: Problem List Items Addressed This Visit Other Severe episode of recurrent major depressive disorder, without psychotic features (CMS/HCC) Family problems Grief associated with loss of fetus Patient ready to address current needs Yes Strengths include readiness to change PLAN: 1. Follow up with [facility]: Not recommended for follow-up 2. Patient goal [...] report. Dicussed protective factors, safety plan, provided [facility] crisis line information. Plan is to referred [...] to change PLAN: 1. 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 Seems to be resolving. Explained she may continue to have irregular menses until her TSH is well controlled. Should not try to conceive before in optimal range, <3.5. I encouraged her to share her plans with her financial services consultant. She will use condoms until well controlled to avoid negative effects of hypothyroidism. She will also start a MVI. She will use Provera prn no period in 2-3 months. Pelvic pain 01/02/2021 Overview (09/16/2024): Last Assessment & Plan: Discussed potential causes of pelvic pain with the patient including infections, , ovarian cysts, endometriosis, interstitial cystitis, irritable bowel, and MSK etiologies. Patient declined pelvic exam today. Pelvic US deferred at this time as she will have US done during infertility testing with [facility]. She was instructed to call if she is unable to get appointment with [facility] or appointment is delayed. Discussed relief measures for pain and reviewed warning signs and when to call, including fever, a significant increase in pain that might represent a rupture, torsion, or heavy vaginal bleeding. 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 Reviewed common causes of PID and testing for GC/CT and Wet prep done today. Reviewed treatment recommendations - patient given Ceftriaxone IM today. Rx for Doxy and Flagyl BID x2 weeks ePrescribed. Recommend avoiding intercourse until symptoms improve and reviewed recommendation for condom use for STI prevention. Discussed s/sx of worsening infection and reasons to call. Patient to follow-up in 2 weeks. Also discussed that if GI symptoms do not improve following treatment she may return to PCP or I may place referral to GI. All questions answered. Allergic rhinitis 04/01/2016 Assessment & Plan (07/31/2023 5:21 AM EDT): - Switch loratadine to cetrizine 10 mg and restart Flonase nasal spray prn. Scoliosis (and kyphoscoliosis), idiopathic 11/24 Resolved Problems Problem Noted Date Diagnosed Date Resolved Date Pituitary mass 07/15/2024 07/15/2024 Encounters Date Type Department Care Team Description 10/10/2024 Telephone [facility] [address] [place] [phone] Brook Delgado RN 10/10/2024 Telephone [facility] [address] [place] [phone] Rae Colindres NP Chart Prep 10/10/2024 Telephone [facility] [address] [place] [address] Brook Delgado, RN 09/29/2024 9:00 AM EDT Office Visit [facility] [address] [place] [address] Brigette Beltran, OD Reduced vision; Hypermetropia, bilateral 09/29/2024 Travel 09/22/2024 2:30 PM EDT Office Visit [facility] [address] [place] [address] Brigette Beltran, OD Reduced vision (Primary Dx) 09/22/2024 Travel 09/19/2024 Travel 09/16/2024 3:45 PM EDT Office Visit [facility] [address] [place] [address] Scarlett Berrios MD Dysconjugate gaze (Primary Dx); Severe episode of recurrent major depressive disorder, without psychotic features (CMS/HCC); Dietary counseling; Exercise counseling; Class 1 obesity without serious comorbidity with body mass index (BMI) of 31.0 to 31.9 in adult, unspecified obesity type; Mass of pineal region; Chronic migraine with aura without status migrainosus, not intractable; Food insecurity; Transportation insecurity 09/16/2024 Telephone [facility] [address] [place] [phone] Scarlett Berrios MD Nurse Triage 09/15/2024 Telephone [facility] [address] [place] [phone] Scarlett Berrios MD chart prep 09/06/2024 Telephone [facility] [address] [place] [phone] Scarlett Berrios MD Referral 08/11/2024 Orders Only [facility] [address] [place] [phone] Scarlett Berrios MD New daily persistent headache (Primary Dx) 08/08/2024 Telephone [facility] [address] [place] [phone] Scarlett Berrios MD Call Back Request 08/07/2024 Refill [facility] [address] [place] [phone] Scarlett Berrios MD 07/22/2024 Population Health Risk Score [facility] () Department [address] [place] [address] [phone] Provider, Population Health Generic 07/18/2024 Orders Only [facility] [address] [place] [phone] Scarlett Berrios MD Mass of pineal region (Primary Dx) 07/18/2024 Telephone [facility] [address] [place] [phone] Scarlett Berrios MD Referral 07/18/2024 Telephone [facility] [address] [place] [phone] Scarlett Berrios MD 07/15/2024 11:00 AM EST Telemedicine [facility] [address] [place] [phone] Scarlett Berrios MD Mass of pineal region (Primary Dx); Vestibular disequilibrium involving both inner ears; Vertigo 07/15/2024 Travel 07/14/2024 Telephone [facility] [address] [place] [address] Scarlett Berrios MD Lab Orders from Last 3 Months Immunizations Immunization Administration Dates Next Due DTaP 12/16/2001, 9,07/13/1998,04/20,1997 HPV, Quadrivalent 12/23/2012,05/08/2011,11/14/19 10 Hep A, ped/adol, 2 dose 01/02/2014,12/23/2012 Hep B, Adolescent or Pediatric 07/13/1998,1997,1997 Hib (HbOC) 02/12/1999, 9,04/20/1998,11/09 IPV 09/02/2001, 9,04/20/1998,11/09 Influenza Injectable Quadriv alant Preservative Free IIV4 MDCK 02/19/2018 Influenza injectable quadriv alent preservative free 04/01/2016,02/27/2015 Influenza, Split (incl. yadira fied surface antigen) 06/11/2012 MMR 09/02/2001,08/31/1998 Meningococcal MCV4P ACYW-135 02/27/2015,11/14/19 10 Tdap 02/19/2018,11/13/2009 Varicella 01/02/2014,05/08/2011 Family History Medical History Relation Name Comments Diabetes Maternal Grandfather Heart disease Maternal Grandfather Hypertension Maternal Grandfather Glaucoma Mother's Sister Hypothyroidism Mother's Sister Relation Name Status Comments Maternal Grandfather Mother's Sister Social History Tobacco Use Types Packs/Day Years Used Date Smoking Tobacco: Never Smokeless Tobacco: Never Tobacco Cessation:Counseling Given: Not Answered Alcohol Use Standard Drinks/Week Comments Never 0 (1 standard drink = 0.6 oz pur e alcohol) Depression Answer Date Recorded Patient Health Questionnaire-9 Score 22 09/16/2024 Patient Health Questionnaire-9 Score 22 09/16/2024 Last PHQ-9: Questionnaire Data Not on file 0 09/16/2024 Housing Stability Answer Date Recorded What is your housing situation today? I have gainni christianson 11/24/[address] you li ve. Do you have problems with any of the following? None of the above 11/24/2023 Food Insecurity Answer Date Recorded Within the past 12 months, y ou worried that your food would run out before you got money to buy more: Sometimes True 2024 Within the past 12 months,th e food you bought just didn't last and you didn't have enough money to get more: Sometimes True 09/16/2024 Transportation Answer Date Recorded In the past 12 months, has l ack of transportation kept you from medical appts, meetings, work or from getting things needed for daily living? Yes, it has kept me from non-medical meetings, work, or getting things that I need 09/16/2024 Utilities Answer Date Recorded In the past 12 months, has t he electric, gas, oil or water company threatened to shut off services in your home? No 11/24/2023 Depression Answer Date Recorded Patient Health Questionnaire-2 Score 5 09/16/2024 Internet Access Answer Date Recorded Internet Access [...] Sign Reading Time Taken Comments Blood Pressure 131/80 09/16/2024 3:56 PM EDT Pulse 92 09/16/2024 3:56 PM EDT Temperature 36.8 ??C (98.3 ??F) 09/16/2024 3:56 PM ED T Respiratory Rate 21 09/16/2024 3:56 PM EDT Oxygen Saturation 99% 09/16/2024 3:56 PM EDT Inhaled Oxygen Concentration - - Weight 84.8 kg (187 lb) 09/16/2024 3:56 PM EDT Height 157.5 cm (5' 2 ) 09/16/2024 3:56 PM EDT Body Mass Index 34.2 09/16/2024 3:56 PM EDT Plan of Treatment Upcoming Encounters Date Type Department Care Team (Late st Contact Info) Description 10/19/2024 11:30 AM EDT Office Visit [facility] [address] [place] [address] Scarlett Berrios MD [address] [place] [address] Health Maintenance Due Date Last Done Comments COVID-19 Vaccine ( season) 2024 05/16/2021, 04/25/2021 Influenza Vaccine (Season Ended) 2025 02/19/2018, 04/01/2016, 02/27/2015, Additional history exists Depression Monitoring 03/19/2025 09/16/2024, 025 Family Planning (PISQ) 04/20/2025 04/20/2024 Alcohol/Substance Use Screening 09/16/2025 09/16/2024 Disability Screening 09/16/2025 09/16/2024 SDOH Screening 09/16/2025 09/16/2024 Tobacco Screening 09/22/2025 09/22/2024 Pap Smear 02/18/2026 02/18/2023 DTaP/Tdap/Td Vaccines (8 - Td or Tdap) 02/20/2028 02/19/2018, 11/13/2009, 12/16/2001, Additional history exists Lipid Panel 09/16/2029 09/16/2024 Zoster Vaccines (1 of 2) 08/31/2047 RSV [...] Completed 08/06/2022 Hepatitis C Screening Completed 08/06/2022 Meningococcal B Vaccine Aged Out No l onger eligible based on patient's age to complete [...] Procedure Name Priority Date/Time Associated Diagnosis Comments LIPID PANEL, STANDARD Routine 09/16/2024 4:32 PM EDT Class 1 obesity without serious comorbidity with body mass index (BMI) of 31.0 to 31.9 in adult, unspecified obesity type COMPREHENSIVE METABOLIC PANEL Routine 09/16/2024 4:32 PM EDT Class 1 obesity without serious comorbidity with body mass index (BMI) of 31.0 to 31.9 in adult, unspecified obesity type CBC WITH AUTO DIFFERENTIAL Routine 09/16/2024 4:32 PM EDT Palpitations TSH W/REFLEX TO FT4 Routine 09/16/2024 4 :32 PM EDT Palpitations MRA HEAD W CONTRAST Urgent 07/22/2024 9 :15 AM EDT PAP SMEAR Routine 02/18/2023 4:22 PM EDT HEPATITIS C AB W/REFL TO HCV RNA, QN, PCR Routine 08/06/2022 2:49 PM EDT Encounter for screening examination for sexually transmitted disease HIV 1 RNA, QUANTITATIVE REAL TIME PCR Routine 08/06/2022 2:49 PM EDT Encounter for screening examination for sexually transmitted disease from Last 3 Months or Most Recently Relevant to Health Maintenance Results * TSH W/Reflex to FT4 (09/16/2024 4:32 PM EDT) TSH reflex Free T4 1.87 0.32 - 4.0 uIU/mL [facility] Blood Venous blood specimen / Unknown 09/16/2024 4:32 PM EDT 09/16/2024 5:40 PM EDT us Scarlett Berrios MD LAB BLOOD ORDERABLES Final Res ult [facility] [address] [place] [phone] * (ABNORMAL) CBC auto differential (09/16/2024 4:32 PM EDT) White Blood Count 12.5(H) 4.8 - 10.8 X10*3/uL [facility] Red Blood Count 4.82 4.20 - 5.50 X10*6/uL [facility] Hemoglobin 14.1 12.0 - 16.0 g/dl [facility] Hematocrit 40.8 37.0 - 47.0 % [facility] Mean Corpuscular Volume 84.6 80.0 - 98.0 fL [facility] Mean Corpuscular Hemoglobin 29.3 27.0 - 33.0 pg [facility] Mean Corpuscular HGB Conc 34.6 31.0 - 35.0 g/dl [facility] Red Cell Distribution Width 12.8 11.0 - 16.0 % [facility] Platelet Count 347 160 - 400 X10*3/uL [facility] Mean Platelet Volume 10.6 9.4 - 12.3 fL [facility] Neutrophils Percent Auto 68.1 45 - 73 % [facility] Imm Gran Pct Auto 0.3 0.0 - 0.4 % [facility] Lymphocytes Percent Auto 20.8 20 - 40 % [facility] Monocytes Percent Auto 8.4 2 - 11 % [facility] Eosinophils Percent Auto 1.6 0 - 4 % [facility] Basophils Percent Auto 0.8 0 - 2 % [facility] NRBC Pct Auto 0.0 0.0 - 0.2 /100WBC [facility] Neutrophils Absolute Auto 8.5(H) 2.0 - 8.3 x10*3/uL [facility] Imm Gran Abs Auto 0.04(H) 0.00 - 0.03 X10*3/uL [facility] Lymphocytes Absolute Auto 2.6 1.2 - 4.9 X10*3/uL [facility] Monocytes Absolute Auto 1.0 0.1 - 1.2 X10*3/uL [facility] Eosinophils Absolute Auto 0.2 0.0 - 0.4 X10*3/uL [facility] Basophils Absolute Auto 0.1 0.0 - 0.2 X10*3/uL [facility] NRBC Abs Auto 0.000 0.0 - 0.012 X10*3/uL [facility] Blood Venous blood specimen / Unknown 09/16/2024 4:32 PM EDT 09/16/2024 5:40 PM EDT us Scarlett Berrios MD LAB BLOOD ORDERABLES Final Res ult [facility] [address] [place] [phone] * (ABNORMAL) Lipid Panel, Standard (09/16/2024 4:32 PM EDT) Triglycerides 154(H) <150 mg/dL [facility] Comment:Desirable Triglyceri de: less than 150 mg/dLBorderline High Triglyceride 150-199 mg/dLHigh Triglyceride: 200-499 mg/dLVery High Triglyceride: greater than or equal to 5OO mg/dL Cholesterol 180 <200 mg/dL [facility] Comment:Desirable Cholestero l: less than 200 mg/dLBorderline High Cholesterol: 200-239 mg/dLHigh Cholesterol: greater than 239 mg/dL LDL Cholesterol Calculated 112(H) <100 mg/dL [facility] Comment:Desirable LDL: less than 100 mg/dLNear Optimal/Above Optimal LDL: 110- 129 mg/dLBorderline High LDL: 130-159 mg/dLHigh LDL: 160-189 mg/dLVery High LDL: greater than or equal to 190 mg/dL HDL Cholesterol 38(L) >40 mg/dL [facility] Comment:Desirable HDL: great er than 40 mg/dL Note: This HDL assay may give artificially low results in patients with liver disease. Blood Venous blood specimen / Unknown 09/16/2024 4:32 PM EDT 09/16/2024 5:40 PM EDT us Scarlett Berrios MD LAB BLOOD ORDERABLES Final Res ult [facility] [address] [place], [place] [phone] * (ABNORMAL) Comprehensive Metabolic Panel (09/16/2024 4:32 PM EDT) Sodium 138 135 - 145 mmol/L [facility] Potassium 4.1 3.3 - 5.1 mmol/L [facility] Chloride 107 96 - 108 mmol/L [facility] Carbon Dioxide 24 22 - 29 mmol/L [facility] Anion Gap 11(L) 12 - 20 [facility] Urea Nitrogen (BUN) 8(L) 9 - 16 mg/dL [facility] Creatinine, Serum 0.75 0.5 - 1.4 mg/dL [facility] Estimated Glomerular Filt Rate >60 [facility] Comment:Chronic Kidney Disea se: Estimated GFR < 60 mL/min/[id number] Kidney Disease: Estimated GFR < 15 mL/min/1.73m2 Glucose 92 60 - 115 mg/dL [facility] Calcium 9.1 8.4 - 10.2 mg/dL [facility] Bilirubin, Total 0.2 0.0 - 1.0 mg/dL [facility] Aspartate Amino Transferase 23 5 - 31 U/L [facility] Alanine Aminotransferase 15 0 - 31 U/L [facility] Total Protein 8.0 6.5 - 8.0 g/dL [facility] Albumin Level 4.1 3.5 - 5.0 g/dL [facility] Alkaline Phosphatase 91 39 - 117 U/L [facility] Blood Venous blood specimen / Unknown 09/16/2024 4:32 PM EDT 09/16/2024 5:40 PM EDT us Scarlett Berrios MD LAB BLOOD ORDERABLES Final Res ult [facility] [address] [place] [phone] * MRA Head w/ Contrast (07/22/2024 9:15 AM EDT) Anatomical Region Laterality Modality Head, Neck Magnetic Resonan ce 07/22/2024 9:15 AM EDT Narrative 07/22/2024 10:36 AM EDT ? [facility] ?[address] ?[place] [address] ? Magnetic Resonance Report ? Signed ? Patient: Kasey Macdonald ?MR#: [id number] ?? [id number] ? : 1995 ?Acct:[id number] ? Age/Sex: 28 / F ?ADM Date: 07/22/24 ? Loc: HO.MRI ? Attending Dr: Scarlett Berrios MD ? Ordering Physician: Scarlett Berrios ?? Date of Service: 07/22/24 ?? Procedure(s): MR head/brain w con ?? Accession Number(s): [id number] ? cc: Scarlett Berrios ? EXAMINATION: ?? MR BRAIN WITH CONTRAST ? CLINICAL INFORMATION: ?? Pineal cyst on noncontrast brain. ? COMPARISON: ?? Noncontrast MR brain 06/26/2024. ? TECHNIQUE: ?? MRI of the brain was obtained utilizing axial and coronal postcontrast ?? T1 sequences. .8 ml IV Gadavist administered. ? FINDINGS: ?? Refer to the prior report for noncontrast MR brain findings. There have ?? been no definite changes in the appearance of the brain. ? There is a thin-walled 8mm pineal cyst with thin peripheral ?? enhancement. There is no nodular enhancement suggest suspicious ?? abnormalities. No significant surrounding mass effect. ?? There is a small developmental venous anomaly in the right posterior ?? frontal lobe (series 5, image 20; series 6, image 19). ? There is otherwise no abnormal intra or extra-axial contrast ?? enhancement. No abnormal bone marrow enhancement. ? Normal ventricles, sulci, and cisterns. ? Mildly prominent adenoidal soft tissues again noted, consistent with ?? reactive etiology. No additional extracranial soft tissue findings. ? MR/MR head/brain w con ?? IMPRESSION: ?? 1. The 8 mm pineal cyst demonstrates thin peripheral enhancement ?? without nodularity. This favors benignity. ?? 2. Small right frontal lobe DVA. ?? 3. No additional abnormal intra or extra-axial contrast enhancement. ? Electronically signed by: ??Raymundo Bartholomew MD ??07/22/2024 10:33 AM EDT RP ? Dictated By: ?Raymundo Bartholomew MD ? Signed By: ?<Electronically signed by Raymundo Bartholomew MD in OV> ?07/22/24 1033 ? DD/ 0915 ? TD/TT: 07/22/24 1000 ? Manager Fixed Income: ? Procedure Note Gerardcesiaolydalila, Image - 07/22/2024 [place] [address] Magnetic Resonance Report Signed Patient: Kasey MacdonaldMR#: [id number] : 1995Acct:[id number] Age/Sex: 28 / FADM Date: 07/22/24 Loc: HO.MRI Attending Dr: Scarlett Berrios MD Ordering Physician: Scarlett Berrios Date of Service: 07/22/24 Procedure(s): MR head/brain w con Accession Number(s): [id number] cc: Scarlett Berrios EXAMINATION: MR BRAIN WITH CONTRAST CLINICAL INFORMATION: Pineal cyst on noncontrast brain. COMPARISON: Noncontrast MR brain 06/26/2024. TECHNIQUE: MRI of the brain was obtained utilizing axial and coronal postcontrast T1 sequences. .8 ml IV Gadavist administered. FINDINGS: Refer to the prior report for noncontrast MR brain findings. There have been no definite changes in the appearance of the brain. There is a thin-walled 8mm pineal cyst with thin peripheral enhancement. There is no nodular enhancement suggest suspicious abnormalities. No significant surrounding mass effect. There is a small developmental venous anomaly in the right posterior frontal lobe (series 5, image 20; series 6, image 19). There is otherwise no abnormal intra or extra-axial contrast enhancement. No abnormal bone marrow enhancement. Normal ventricles, sulci, and cisterns. Mildly prominent adenoidal soft tissues again noted, consistent with reactive etiology. No additional extracranial soft tissue findings. MR/MR head/brain w con IMPRESSION: 1. 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 This favors benignity. 2. Small right frontal lobe DVA. 3. No additional abnormal intra or extra-axial contrast enhancement. Electronically signed by: Raymundo Bartholomew MD 07/22/2024 10:33 AM EDT Dictated By: Raymundo Bartholomew MD Signed By: <Electronically signed by Raymundo Bartholomew MD in OV> 07/22/24 1033 DD/ 0915 TD/TT: 07/22/24 1000 Manager Fixed Income: us Scarlett Berrios MD IMG MRI PROCEDURES Final Resul t * Pap Smear (02/18/2023 4:22 PM EDT) 02/18/2023 4:22 PM EDT 02/19/2023 7:20 AM EDT [facility] - 02/20/2023 9:47 AM EDT ----- ------- Name: Kasey Macdonald ?Age/Sex: 27/F ? : 1995 Unit#: [id number] ?? Attend Dr: Scarlett Berrios ?Re02/18/23 ?Status: DEP REF ? Location: [facility] ? Disch: ? ----- ------- SPEC : [id number] ?RECD: 02/19/23 ? STATUS: ??SOUT ? REQ NUM: [id number] ? JESSICA: 02/18/23 ? SUBM DR: Scarlett [...] Berrios MD LAB CYTOLOGY ORDERABLES Final Result [facility] [address] [place] [phone] * Hepatitis C Antibody with Reflex to HCV, RNA, Quantitative, Real-Time PCR (08/06/2022 2:49 PM EDT) Hepatitis C Antibody NON-REACT GREG NON-REACT GREG [employer] [facility] Index 0.18 <1.00 [employer] [facility] Comment: HCV antibody was non-reactive. There is no laboratory evidence of HCV infection. In most cases, no further action is required. However, if recent HCV exposure is suspected, a test for HCV RNA (test code 59990) is suggested. For additional information please refer to http://education.Routehappy/faq/BWN68e9 (This link is being provided for informational/ educational purposes only.) Blood Venous blood specimen / Unknown 08/06/2022 2:49 PM EDT 08/06/2022 2:50 PM EDT Narrative [facility] - 08/08/2022 11:04 AM EDT FASTING:NO FASTING: NO Result [facility] [place] Scarlett Berrios MD LAB BLOOD ORDERABLES Final Res ult Performing Organization Address [facility]/ZIP Co de Phone Number [facility] [address], [place] [address] [employer] [facility] [employer] [address] [place] [address] * HIV-1 RNA, Quantitative, Real-Time PCR (08/06/2022 2:49 PM EDT) [facility] HIV 1 RNA, QN PCR NOT DETECTED NOT DETECTED copies/mL [employer] [facility] HIV 1 RNA, QN PCR NOT DETECTED NOT DETECTED Log copies/mL [employer] [place] [employer] Comment: This test was performed using Real-Time Polymerase Chain Reaction. Reportable Range: 20 copies/mL to 10,000,000 copies/mL (1.30 log copies/mL to 7.00 log copies/mL). Blood Venous blood specimen / Unknown 08/06/2022 2:49 PM EDT 08/06/2022 2:50 PM EDT Narrative [facility] - 08/08/2022 11:04 AM EDT FASTING:NO FASTING: NO Result [facility] [place] Scarlett Berrios MD LAB BLOOD ORDERABLES Final Res ult Performing Organization Address [facility]/ZIP Co de Phone Number [facility] [address], [place] [address] [employer] [place] [employer] [address] [place] [address] from Last 3 Months or Most Recently Relevant to Health Maintenance Insurance [id number] Care Teams Email Engineer Relationship Specialty Start Date End Date Scarlett Berrios MD [address] [place] [phone] PCP - General Family Medicine 01/02/22
[2024-10-11 17:49] LABS: TSH reflex Free T4 6.45 uIU/mL (0.32-4.0)
[2024-10-11 18:21] LABS: Free T4 (Free Thyroxine) 0.93 ng/dL (0.71-1.85)
== END 2024-10-11 14:01 | disposition home or self-care (01) ==
LOC: HO.HHCL 14:00
PROVIDERS: Family Medicine; Visit Provider General Practice
DX: E03.9 Hypothyroidism, unspecified (principal)
CPT/HCPCS: 36415; 84439; 84443

== ENCOUNTER 2024-10-11 14:02 | Outpatient (REF) | payer SELFPAY | END 2024-10-11 14:03 | disposition home or self-care (01) | LOC: HO.HHCL 14:02 | PROVIDERS: Visit Provider General Practice | DX: Z13.89 Encounter for screening for other disorder (principal) ==

== ENCOUNTER 2024-12-18 01:01 | Emergency (ER) | payer MEDICAID, SELFPAY ==
--- NOTE | ~2024-12-18 | XR_ITS ---
CLINICAL HISTORY: injury to left thumb 3 view myio8oh digit Comparison: None Findings: Bones intact. No dislocations. No significant loss of joint space or osteophytes. No erosions. No radiopaque foreign body. IMPRESSION: 1. No acute findings This document has been electronically signed by: Kiko Morales MD, PHD on 12/18/2024 01:57:36
[2024-12-18 01:06] VITALS: BP 112/65; PULSE 81; RESP 16; TEMP 36.7; O2SAT 98; BMI 33.4
--- NOTE | 2024-12-18 02:28 | ED_ITS ---
HPI - Extremity Problem General Chief complaint: Extremity Injury, Upper Stated complaint: finger inj Time Seen by Provider: 12/18/24 01:56 Source: patient Mode of arrival: ambulatory Limitations: no limitations History of Present Illness ED Provider: Dr. Urmila Pratt HPI Narrative: Patient comes to the emergency room complaining of left thumb pain. Earlier this evening, patient's lambda door car on her finger. Patient complaining of localized pain. Related Data Home Medications ?Medication ?Instructions ?Recorded ?Confirmed azelastine 137 mcg (0.1 %) nasal 2 spray intranasal BI D 09/16/23 spray cetirizine 10 mg capsule (Zyrtec) 10 mg PO DAILY PRN 0 09/16/23 fluticasone propionate 50 2 spray intranasal DAILY 01/01 mcg/actuation nasal spray,suspension simethicone 80 mg chewable tablet 80 mg PO BEDTIME 01/01 (Gas Relief (simethicone)) cetirizine 10 mg tablet 10 mg PO QAM 01/27/24 levothyroxine 137 mcg tablet 137 mcg PO QAM 01/27/24 medroxyprogesterone 150 mg/mL mg IM 01/27/24 intramuscular suspension sertraline 50 mg tablet 50 mg PO DAILY 01/27/24 Previous Rx's ?Medication ?Instructions ?Recorded bacitracin 500 unit/gram topical 1 appl topical Q8H #1 4 grams 12/18/24 ointment tramadol 50 mg tablet 50 mg PO BID PRN pain #4 tab s 12/18/24 Allergies Allergy/AdvReac Type Severity Reaction Status Date / Time No Known Allergies Allergy Verified 12/18/24 01:06 Review of Systems Review of Systems: Constitutional : No Weight loss, No Fever, No Chills, No Night Sweats, No Fatigue, No Malaise ENT/Mouth : No Hearing loss, No Ear Pain, No Nasal Congestion, No Sinus Pain, No Hoarseness, No sore throat, No Rhinorrhea, No Swallowing Difficulty Eyes: No Eye Pain, No Swelling, No Redness, No Foreign Body, No Discharge, No Vision Changes Cardiovascular : No Chest Pain, No SOB, No Dyspnea on Exertion, No Orthopnea, No Edema, No Palpitations Respiratory : No Cough, No Sputum, No Wheezing, No Smoke Exposure, No Dyspnea Gastrointestinal : No Nausea, No Vomiting, No Diarrhea, No Constipation, No abdominal Pain, No Hematochezia, No Melena Genitourinary : no irregular bleeding, No Dysuria, No Urinary Frequency, No Hematuria, No Urinary Incontinence, No Urgency, No Flank Pain, No Urinary Flow Changes, No Hesitancy Musculoskeletal : Patient complaining of thumb pain No joint pain, No Myalgias, No Joint Swelling Skin : No Skin Lesions, No rash Neuro : No Weakness, No Numbness, No Paresthesias, No Loss of Consciousness, No Dizziness, No Headache Psych : No Anxiety/Panic, No Depression, No SI/HI/AH/VH, No Social Issues, Heme/Lymph: No Bruising, No Bleeding,No Lymphadenopathy Endocrine : No Polyuria, No Polydipsia, No Temperature Intolerance [facility] Past Medical History 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 Oriented X3. No acute distress. Eyes: Pupils equal, round and reactive to light. ENT: Pharynx normal. Neck: Normal inspection. Neck supple. No lymph nodes noted. No crepitus CVS: Normal heart rate and rhythm. Pulses normal. Normal S1 and S2 Respiratory: No respiratory distress. Breath sounds normal. No Wheezing. No rales Abdomen: Soft and nontender. No rigidity. No distention. Skin: Skin warm and dry. Normal skin color. Normal skin turgor. Extremities: No lower extremity edema. No Lacerations. No Rash, on patient's left thumb, patient has a subungual hematoma Neuro: Oriented X 3. No motor deficit. No sensory deficit. Moving all extremities. No slurred speech. CN 2 through 12 grossly intact Psych: calm, cooperative, normal affect Vital Signs: Vital Signs: Last Vital Signs Temp 98.0 F 12/18/24 01:06 Pulse 81 12/18/24 01:06 Resp 16 12/18/24 01:06 BP 112/65 12/18/24 01:06 Pulse Ox 98 12/18/24 01:06 O2 Del Method Room Air 12/18/24 01:06 BMI result Body Mass Index 33.4 Medical Decision Making Medical Decision Making [facility] Narrative: X-ray of the hand does not show any acute abnormality, no fracture Patient has a subungual hematoma, I discussed the treatment choices with the patient, patient opted to proceed with a trephination Subungual hematoma successfully drained. Bacitracin applied. Discharge Plan Discharge Clinical Impression: Subungual hematoma of finger Patient Disposition: Home, Self-Care Instructions: Subungual Hematoma (ED) Additional Instructions: Please follow-up with your primary care physician tomorrow. If you have any worsening or new symptoms, please return to the emergency room or call 911 Prescriptions: New tramadol 50 mg tablet 50 mg PO BID PRN (Reason: pain) Qty: 4 0RF bacitracin 500 unit/gram ointment 1 appl topical Q8H Qty: 14 0RF No Action fluticasone propionate 50 mcg/actuation spray,suspension 2 spray intranasal DAILY azelastine 137 mcg (0.1 %) aerosol,spray 2 spray intranasal BID simethicone [Gas Relief (simethicone)] 80 mg tablet,chewable 80 mg PO BEDTIME Zyrtec 10 mg capsule 10 mg PO DAILY PRN levothyroxine 137 mcg tablet 137 mcg PO QAM medroxyprogesterone 150 mg/mL suspension IM sertraline 50 mg tablet 50 mg PO DAILY cetirizine 10 mg tablet 10 mg PO QAM Print Language: Upper Sorbian
[2024-12-18 02:56] VITALS: BP 111/71; PULSE 71; RESP 18; TEMP 36.7; O2SAT 98
[2024-12-18 03:27] VITALS: BP 111/71; PULSE 71; RESP 18; TEMP 36.7; O2SAT 98
== END 2024-12-18 03:00 | disposition home or self-care (01) ==
PROVIDERS: Emergency Provider Emergency Medicine
DX: S60.012A Contusion of left thumb without damage to nail, initial encounter (principal); X58.XXXA Exposure to other specified factors, initial encounter; Y93.9 Activity, unspecified; Y92.9 Unspecified place or not applicable; Y99.8 Other external cause status; Z79.899 Other long term (current) drug therapy
CPT/HCPCS: 73140; 99283

== ENCOUNTER → 2024-12-18 01:16 | Outpatient (BNV) | payer MEDICAID, SELFPAY | PROVIDERS: Emergency Provider Emergency Medicine; Visit Provider General Practice | DX: M79.645 Pain in left finger(s) (principal) | CPT/HCPCS: 73140 ==

== ENCOUNTER 2025-01-18 11:38 | Outpatient (REF) | payer MEDICAID, SELFPAY ==
--- OUTSIDE RECORDS SUMMARY | 2025-01-18 10:00 | XMS_ITS | Encounter Summary ---
Author Organization [employer] Address [address] [place] [address] Care Team Providers Care Collet Making Machine Operator Name Role Phone Scarlett Berrios MD Primary Care Provider [phone] Encounter Details Date Type Department Care Team (Late st Contact Info) Description 01/18/2025 10:00 AM EDT Office Visit [facility] MEDICINE [address] [place], [place] [phone] Scarlett Berrios MD [address], [place] [phone] Chronic daily headache (Primary Dx); Class 1 obesity; Hypothyroidism, unspecified type; Severe episode of recurrent major depressive disorder, without psychotic features (CMS/HCC) Social History Tobacco Use Types Packs/Day Years Used Date Smoking Tobacco: Never Passive Smoke Exposure: Never Smokeless Tobacco: Never Tobacco Cessation:Counseling Given: Not Answered Alcohol Use Standard Drinks/Week Comments Never 0 (1 standard drink = 0.6 oz pur e alcohol) Depression Answer Date Recorded Patient Health Questionnaire-9 Score 18 01/18/2025 Patient Health Questionnaire-9 Score 18 01/18/2025 Last PHQ-9: Questionnaire Data Not on file 0 01/18/2025 Housing Stability Answer Date Recorded What is [...] Answer Date Recorded Patient Health Questionnaire-2 Score 4 01/18/2025 Internet Access Answer Date Recorded Internet Access Q1 Yes 01/11/2024 Internet Access Q2 Not on file 01/11/2024 Comments No Sex and Gender Information Value Date Recorded Sex Assigned at Female 03/10/2022 10:17 AM EDT Legal Sex Female 10:17 AM EDT Gender Identity Female 03/10/2022 10:17 AM EDT Sexual Orientation Straight 03/10/2022 10 :17 AM EDT documented as of this encounter Last Filed Vital Signs Vital Sign Reading Time Taken Comments Blood Pressure 106/58 01/18/2025 10:07 AM EDT Pulse 80 01/18/2025 10:07 AM EDT Temperature 36.7 C (98 F) 01/18/2025 10:07 AM EDT Respiratory Rate 17 01/18/2025 10:07 AM EDT Oxygen Saturation - - Inhaled Oxygen Concentration - - Weight 83.5 kg (184 lb 2 oz) 01/18/2025 10:07 AM EDT Height 157.5 cm (5' 2 ) 01/18/2025 10:07 AM EDT Body Mass Index 33.68 01/18/2025 10:07 AM EDT documented in this encounter Functional Status * Over the past 2 weeks, how often have you been bothered by any of the following problems? Question Answer Date of Assessment Author Patient Health Questionnaire-2 Score 4 01/09 10:09 AM EDT Abbe Loera MA * Little interest or pleasure in doing things Answer Date of Assessment Author More than half the days 01/18/2025 10:09 AM EDT Abbe Loera MA * Feeling down, depressed, or hopeless Answer Date of Assessment Author More than half the days 01/18/2025 10:09 AM EDT Abbe Loera MA * Trouble falling or staying asleep, or sleeping too much Answer Date of Assessment Author Nearly every day 01/18/2025 10:09 AM EDT Lisa Loera MA * Feeling tired or having little energy Answer Date of Assessment Author Nearly every day 01/18/2025 10:09 AM EDT Lisa Loera MA * Poor appetite or overeating Answer Date of Assessment Author More than half the days 01/18/2025 10:09 AM EDT Abbe Loera MA * Feeling bad about yourself - or that you are a failure or have let yourself or your family down Answer Date of Assessment Author Not at all 01/18/2025 10:09 AM EDT Lyric Loera MA * Trouble concentrating on things, such as reading the newspaper or watching television Answer Date of Assessment Author Nearly every day 01/18/2025 10:09 AM BENIT Lisa Loera MA * Moving or speaking so slowly that other people could have noticed? Or the opposite - being so fidgety or restless that you have been moving around a lot more than usual. Answer Date of Assessment Author Nearly every day 01/18/2025 10:09 AM EDT Lisa Loera MA * Thoughts that you would be better off or hurting yourself in some way Answer Date of Assessment Author Not at all 01/18/2025 10:09 AM BENIT Lyric Loera MA * Patient Health Questionnaire-9 Score Answer Date of Assessment Author 18 01/18/2025 10:09 AM EDT Lyric Loera MA * How difficult have these problems made it for you to do your work, take care of things at home, or get along with other people? Answer Date of Assessment Author Very difficult 01/18/2025 10:09 AM EDT Lyric Loera MA documented as of this encounter Progress Notes * Scarlett Berrios MD - 01/18/2025 10:00 AM EDT SUBJECTIVE: Kasey Mccartney is a 29 y.o. year old female who presents for chronic disease management. Denies recent illness, ER visit, or hospitalization. Acute Concerns: Migraine headaches - Persistent headaches interfering with daily activities - Headaches have been present for an extended period and remain unchanged in frequency and severity - Reports some improvement in headache intensity after stopping work, but headaches continue to be persistent - Manages headaches by staying in a dark room and using cool compresses - Uses lavender body wash for relaxation, but does not notice any difference in headache relief - Has a collection of lavender products at home, but none have provided significant relief - No mention of other associated symptoms such as visual changes, nausea, or vomiting Recent ophthalmology visit - Attended a neuro appointment prior to the current encounter - Underwent multiple eye exams during the visit - Received a prescription for glasses and dropped it off at the optical center immediately after the appointment - Was informed by the eye doctor that current medication may not be appropriate Supplement recommendations - Eye doctor recommended magnesium, riboflavin, B12, and feverfew supplements to help with migraines - Was told that current medications may deplete certain body nutrients, necessitating supplementation - Has not yet started any new supplements prior to the current encounter Chronic conditions and Plans: Migraine/dizziness DAVISON daily Went to [facility] for vestibular rehab after seeing ENT Saw Neurology at [facility] 08.31.24 and given Medrol DosePak and instructed to discontinue NSAIDs Not sleeping more than 3 hours, will trial Melatonin and then Attarax On Mag 400mg and Riboflavin 400mg for preventative measures Saw Neurosurgery at [facility] 07/2024 and they did not think that the 13mm pineal cyst was causing her DAVISON symptoms, nor did it need further followup Medrol dose tyrone not helpful, trying to break out of chronic daily headache/analgesic rebound. Has not had any NSAIDs since end of August 2024. She saw optometry at [facility] twice in the past month and they referred her to a neuro-grass farmer. Appointment with Dr. Ramirez Penaloza on Jan 10, 2025, he prescribed glasses and Vit B12 and feverfew 06/26/24 MR Brain without gadolinium Findings: No restricted diffusion. No intracranial mass [...] reactive or inflammatory/infectious in nature. Correlate clinically. 07/22/24 MR/MR head/brain w con IMPRESSION: 1. 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 This favors benignity. 2. Small right frontal lobe DVA. 3. No additional abnormal intra or extra-axial contrast enhancement. Hypothyroidism On Synthroid 137mcg daily Lab Results Component Value Date TSH 6.45 (H) 10/11/2024 TSH 5.01 (H) 07/30/2023 TSH 4.97 (H) 08/06/2022 Health Maintenance STI- UTD Pap- UTD Imms- due for Flu and COVID fall 2024 Patient Active Problem List Diagnosis Date Noted Mass of pineal region 07/15/2024 Dizziness and giddiness 06/17/2024 Vestibular disequilibrium involving both inner ears 06/17/2024 Chronic daily headache 06/17/2024 Vertigo 05/03/2024 Elevated immunoglobulin A 12/11/2023 Screening for cervical cancer 02/18/2023 Severe episode of recurrent major depressive disorder, without psychotic features (CMS/HCC) 02/05/2023 Grief associated with loss of fetus 02/05/2023 Class 1 obesity 11/17/2022 Irregular menses 08/07/2022 Constipation by delayed colonic transit 08/07/2022 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 Respiratory: Negative. Cardiovascular: Negative. Skin: Negative. Neurological: Positive for headaches. Hematological: Negative. Psychiatric/Behavioral: Positive for decreased concentration and dysphoric mood. The patient is nervous/anxious. OBJECTIVE: Vitals: 01/18/25 1007 BP: 106/58 BP Location: Left arm Patient Position: Sitting BP Cuff Size: Adult Pulse: 80 Resp: 17 Temp: 98 ??F (36.7 ??C) TempSrc: Oral Weight: 184 lb 2 oz (83.5 kg) Height: 5' 2 (1.575 m) Physical Exam Vitals and nursing note reviewed. Constitutional: Appearance: Normal appearance. HENT: Head: Normocephalic and atraumatic. Cardiovascular: Rate and Rhythm: Normal rate and regular rhythm. Pulses: Normal pulses. Heart sounds: Normal heart sounds. Pulmonary: Effort: Pulmonary effort is normal. Breath sounds: Normal breath sounds. Skin: General: Skin is warm and dry. Neurological: General: No focal deficit present. Mental Status: She is alert and oriented to person, place, and time. Psychiatric: Mood and Affect: Mood normal. Behavior: Behavior normal. ASSESSMENT/PLAN Problem List Items Addressed This Visit Hypothyroid Class 1 obesity Severe episode of recurrent major depressive disorder, without psychotic features (CMS/HCC) Current Assessment & Plan PHQ9 positive today, still taking SSRI BH in to see patient today to work on establishing OP therapy Chronic daily headache - Primary Current Assessment & Plan Chronic daily headache: - Chronic daily headache with persistent migraines, partially improved after stopping work. No mention of other underlying causes. - Prescribed riboflavin, magnesium, and vitamin B12 supplements. Recommended taking magnesium at night. Attempted to order feverfew; advised to obtain it over the counter if not available through pharmacy or insurance. Suggested non- pharmacologic interventions including use of peppermint or lavender oil, self- massage of pressure points (temples, between eyes, between thumb and first finger), acupuncture, dark room rest, and cool compresses. Relevant Medications riboflavin (True Vitamin B2) 100 MG tablet Magnesium Oxide -Mg Supplement 400 MG capsule Other Relevant Orders CBC auto differential TSH W/Reflex to FT4 hCG, Total, Quantitative Follow Up: 3 months or sooner prn Allergies[2] Current Medications[3] Tajik Translation: Patient is bilingual and declines translation services [1] Past Surgical History: Procedure Laterality Date SECTION, LOW TRANSVERSE MRA HEAD W CONTRAST 07/22/2024 MRA HEAD W CONTRAST [2] Allergies Allergen Reactions Benadryl [Diphenhydramine] Vomiting [3] Current Outpatient Medications: cetirizine (ZyrTEC) 10 MG tablet, TAKE 1 TABLET BY MOUTH EVERY DAY IN THE MORNING, Disp: 90 tablet,Rfl: 1 fluticasone (Flonase) 50 MCG/ACT nasal spray, SPRAY 2 SPRAYS INTO EACH NOSTRIL IN THE MORNING, Disp: 48 mL, Rfl: 1 hydrocortisone 2.5 % cream, Apply pea sized amount to skin bid for 1 week, Disp: 15 g, Rfl: 0 hydrOXYzine HCl (Atarax) 25 MG tablet, TAKE 1 TAB BY MOUTH IF NEEDED IN THE MORNING, AT NOON, AND AT BEDTIME NEEDED, Disp: 90 tablet, Rfl: 1 levothyroxine (Synthroid, Levoxyl) 137 MCG tablet, TAKE 1 TABLET BY MOUTH EVERY DAY PRIOR TO BREAKFAST, Disp: 90 tablet, Rfl: 3 Melatonin 3 MG capsule, Take 3 mg by mouth if needed at bedtime (insomnia)., Disp: 90 capsule, Rfl:3 omeprazole (PriLOSEC) [address] capsule, Take 1 capsule (20 mg) by mouth before breakfast. Do not crush or chew., Disp: 90 capsule, Rfl: 1 ondansetron (Zofran) 8 MG tablet, TAKE 1 TABLET (8 MG) BY MOUTH EVERY 8 HOURS NEEDED FOR NAUSEA AND VOMITING FOR UP TO 7 DAYS, Disp: 20 tablet, Rfl: 0 sertraline (Zoloft) 50 MG tablet, TAKE 1 TABLET (50 MG) BY MOUTH ONCE PER DAY., Disp: 90 tablet, Rfl: 3 topiramate (Topamax Sprinkle) 25 MG capsule, Take 25 mg by mouth., Disp: , Rfl: cyanocobalamin (Vitamin B-12) 100 MCG tablet, Take 1 tablet (100 mcg) by mouth Once per day., Disp:90 tablet, Rfl: 3 feverfew 100 MG capsule, Take 1 capsule (100 mg) by mouth Once per day., Disp: 90 capsule, Rfl: 3 Magnesium Oxide -Mg Supplement 400 MG capsule, Take 400 mg by mouth at bedtime., Disp: 90 capsule, Rfl: 3 riboflavin (True Vitamin B2) 100 MG tablet, Take 1 tablet (100 mg) by mouth Once per day., Disp: 90tablet, Rfl: 3 Current Facility-Administered Medications: ondansetron ODT (Zofran-ODT) disintegrating tablet 4 mg, 4 mg, Oral, Once, Scarlett Berrios MD documented in this encounter Miscellaneous Notes * Assessment & Plan Note - Scarlett Berrios MD - 01/18/2025 12:38 PM EDT Associated Problem(s): Severe episode of recurrent major depressive disorder, without psychotic features (CMS/HCC) PHQ9 positive today, still taking SSRI BH in to see patient today to work on establishing OP therapy * Assessment & Plan Note - Scarlett Berrios MD - 01/18/2025 12:37 PM EDT Associated Problem(s): Chronic daily headache Chronic daily headache: - Chronic daily headache with persistent migraines, partially improved after stopping work. No mention of other underlying causes. - Prescribed riboflavin, magnesium, and vitamin B12 supplements. Recommended taking magnesium at night. Attempted to order feverfew; advised to obtain it over the counter if not available through pharmacy or insurance. Suggested non- pharmacologic interventions including use of peppermint or lavender oil, self- massage of pressure points (temples, between eyes, between thumb and first finger), acupuncture, dark room rest, and cool compresses. documented in this encounter Plan of Treatment Not on file documented as of this encounter Procedures Procedure Name Priority Date/Time Associated Diagnosis Comments TSH W/REFLEX TO FT4 Routine 01/18/2025 1 1:58 AM EDT Chronic daily headache CBC WITH AUTO DIFFERENTIAL Routine 01/18/2025 11:58 AM EDT Chronic daily headache HCG, TOTAL, QN Routine 01/18/2025 11:58 AM EDT Chronic daily headache documented in this encounter Results * hCG, Total, Quantitative (01/18/2025 11:58 AM EDT) HCG Quantitative <2 mIU/mL [facility] Comment:Weeks post LMP Appr oximate hCG(Last Menstrual Period) Range (mIU/ml)3 - 4 weeks 9 - 1304 - 5 weeks 75 - 2,6005 - 6 weeks 850 - 20,8006 - 7 weeks 4000 - 100,2007 - 12 weeks 11,500 - 289,91908 - 16 weeks 18,300 - 137,45591 - 29 weeks (2nd trimester) 1,400 - 53,40407 - 41 weeks (3rd trimester) 940 - 60,000The Zhong B- hCG assay is used for the early detection ofpregnancy; it cannot be used to diagnose any conditionunrelated to . If a B-hCG level is not supportedby the clinical evidence, results should be confirmed by analternative method (qualitative urine hCG, for example). Blood Venous blood specimen / Unknown 01/18/2025 11:58 AM EDT 01/18/2025 1:47 PM EDT Scarlett Berrios MD LAB BLOOD ORDERABLES Final Res ult Performing Organization Address [facility] Co de Phone Number [facility] [address] [place] [phone] * (ABNORMAL) TSH W/Reflex to FT4 (01/18/2025 11:58 AM EDT) TSH reflex Free T4 8.03(H) 0.32 - 4.0 uIU/mL [facility] Blood Venous blood specimen / Unknown 01/18/2025 11:58 AM EDT 01/18/2025 1:47 PM EDT Scarlett Berrios MD LAB BLOOD ORDERABLES Final Res ult Performing Organization Address [facility]/ZIP Co de Phone Number [facility] [address] [place] [phone] * CBC auto differential (01/18/2025 11:58 AM EDT) White Blood Count 8.5 4.8 - 10.8 X10*3/uL [facility] Red Blood Count 4.96 4.20 - 5.50 X10*6/uL [facility] Hemoglobin 14.4 12.0 - 16.0 g/dl [facility] Hematocrit 42.2 37.0 - 47.0 % [facility] Mean Corpuscular Volume 85.1 80.0 - 98.0 fL [facility] Mean Corpuscular Hemoglobin 29.0 27.0 - 33.0 pg [facility] Mean Corpuscular HGB Conc 34.1 31.0 - 35.0 g/dl [facility] Red Cell Distribution Width 13.0 11.0 - 16.0 % [facility] Platelet Count 284 160 - 400 X10*3/uL [facility] Mean Platelet Volume 11.6 9.4 - 12.3 fL [facility] Neutrophils Percent Auto 63.0 45 - 73 % [facility] Imm Gran Pct Auto 0.2 0.0 - 0.4 % [facility] Lymphocytes Percent Auto 24.6 20 - 40 % [facility] Monocytes Percent Auto 9.7 2 - 11 % [facility] Eosinophils Percent Auto 1.7 0 - 4 % [facility] Basophils Percent Auto 0.8 0 - 2 % [facility] NRBC Pct Auto 0.0 0.0 - 0.2 /100WBC [facility] Neutrophils Absolute Auto 5.3 2.0 - 8.3 x10*3/uL [facility] Imm Gran Abs Auto 0.02 0.00 - 0.03 X10*3/uL [facility] Lymphocytes Absolute Auto 2.1 1.2 - 4.9 X10*3/uL [facility] Monocytes Absolute Auto 0.8 0.1 - 1.2 X10*3/uL [facility] Eosinophils Absolute Auto 0.1 0.0 - 0.4 X10*3/uL [facility] Basophils Absolute Auto 0.1 0.0 - 0.2 X10*3/uL [facility] NRBC Abs Auto 0.000 0.0 - 0.012 X10*3/uL [facility] Blood Venous blood specimen / Unknown 01/18/2025 11:58 AM EDT 01/18/2025 1:32 PM EDT us Scarlett Berrios MD LAB BLOOD ORDERABLES Final Res ult [facility] [address] [place] [phone] documented in this encounter Visit Diagnoses Diagnosis Chronic daily headache- Primary Headache Class 1 obesity Hypothyroidism, unspecified type Severe episode of recurrent major depressive disorder, without psychotic features (CMS/HCC) documented in this encounter Additional Health Concerns Assessment Noted Time PHQ-9 Depression Total Score: 18 025 10:09 AM EDT documented as of this encounter Care Teams Collet Making Machine Operator Relationship Specialty Start Date End Date Scarlett Berrois MD [address] [place] [phone] PCP - General Family Medicine 01/02/22 documented as of this encounter
[2025-01-18 13:48] LABS: MANUAL DIFF FLAG NO
[2025-01-18 13:57] LABS: Hematocrit 42.2 % (37.0-47.0); Hemoglobin 14.4 g/dl (12.0-16.0); Imm Gran Abs Auto 0.02 X10*3/uL (0.00-0.03); Imm Gran Pct Auto 0.2 % (0.0-0.4); Lymphocytes Absolute Auto 2.1 X10*3/uL (1.2-4.9); Mean Corpuscular HGB Conc 34.1 g/dl (31.0-35.0); Mean Corpuscular Hemoglobin 29.0 pg (27.0-33.0); Mean Corpuscular Volume 85.1 fL (80.0-98.0); NRBC Abs Auto 0.000 X10*3/uL (0.0-0.012); NRBC Pct Auto 0.0 /100WBC (0.0-0.2); Platelet Count 284 X10*3/uL (160-400); Red Blood Count 4.96 X10*6/uL (4.20-5.50); White Blood Count 8.5 X10*3/uL (4.8-10.8)
--- OUTSIDE RECORDS SUMMARY | 2025-01-18 14:51 | XMS_ITS | Encounter Summary ---
Author Organization [employer] [facility] Address [address] [place] [address] Care Team Providers Care Table Games Floor Supervisor Name Role Phone Scarlett Berrios MD Primary Care Provider [phone] Encounter Details Date Type Department Care Team (Late st Contact Info) Description 09/24/2022 Orders Only [facility] MEDICINE [address] [place], [place] [phone] Scarlett Berrios MD [address] [place], [place] [phone] Blurry vision, bilateral (Primary Dx) Social History [...] as of this encounter Plan of Treatment Not on file documented as of this encounter Visit Diagnoses Diagnosis Blurry vision, bilateral- Primary Other specified visual disturbances documented in this encounter Care Teams Table Games Floor Supervisor Relationship Specialty Start Date End Date Scarlett Berrios MD [address] [place], [place] [phone] PCP - General Family Medicine 01/02/22 documented as of this encounter
--- OUTSIDE RECORDS SUMMARY | 2025-01-18 14:51 | XMS_ITS | Encounter Summary ---
Author Organization [employer] Address [address] [place] [address] Care Team Providers Care Neonatal Intensive Care Unit Nurse Name Role Phone Scarlett Berrios MD Primary Care Provider [phone] Reason for Visit * Reason Onset Date Comments Med Refill 11/10/2023 Encounter Details Date Type Department Care Team ([facility] st Contact Info) Description 11/10/2023 Refill [facility] OPT[facility] [address] [place] [address] Kang, Yessenia, OD [address] [place] [address] Social History Tobacco Use Types Packs/Day Years [...] t he electric, gas, oil or water [employer] threatened to shut off services in your [...] documented as of this encounter Care Teams Neonatal Intensive Care Unit Nurse Relationship Specialty Start Date End Date Scarlett Berrios MD [address] [place] [phone] PCP - General Family Medicine 01/02/22 documented as of this encounter
--- OUTSIDE RECORDS SUMMARY | 2025-01-18 14:51 | XMS_ITS | Encounter Summary ---
Author Organization [employer] Address [address] [place] [address] Care Team Providers Care Cpc Coder Name Role Phone Scarlett Berrios MD Primary Care Provider [phone] Reason for Visit * Reason Onset Date Comments Referral 07/18/2024 Encounter Details Date Type Department Care Team ([facility] st Contact Info) Description 07/18/2024 Telephone [facility] MEDICINE [address] [place], [place] [phone] Scarlett Berrios MD [address] [place] [address] Referral Social History Tobacco Use Types Packs/Day [...] that was sent over for MRI to [facility] there was missing information as facility contact [...] documented as of this encounter Care Teams Cpc Coder Relationship Specialty Start Date End Date Scarlett Berrios MD [address] [place] [phone] PCP - General Family Medicine 01/02/22 documented as of this encounter
--- OUTSIDE RECORDS SUMMARY | 2025-01-18 14:51 | XMS_ITS | Clinical Summary ---
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 fluticasone (Flonase) 50 MCG/ACT nasal spray SPRAY 2 SPRAYS INTO EACH NOSTRIL IN THE MORNING 48 mL 1 10/30/19 24 Active hydrocortisone 2.5 % cream Apply pea sized amount to skin bid for 1 week 15 g 12/08/19 24 Active Melatonin 3 MG capsule Take 3 mg by mouth if needed at bedtime (insomnia). 90 capsule 3 07/16/19 25 Active topiramate (Topamax Sprinkle) 25 MG capsuleIndication s:Chronic migraine with aura without status migrainosus, not intractable Take 25 mg by mouth. 09/01/19 25 Active omeprazole (PriLOSEC) [address] capsule Take 1 capsule (20 mg) by mouth before breakfast. Do not crush or chew. 90 capsule 1 11/24/19 25 2025 Active hydrOXYzine HCl (Atarax) 25 MG tabletIndications :Chronic nonintractable headache, unspecified headache type,Anxiety TAKE 1 TAB BY MOUTH IF NEEDED IN THE MORNING, AT NOON, AND AT BEDTIME NEEDED 90 tablet 1 11/24/19 25 Active sertraline (Zoloft) 50 MG tablet TAKE 1 TABLET (50 MG) BY MOUTH ONCE PER DAY. 90 tablet 3 12/17/19 25 Active levothyroxine (Synthroid, Levoxyl) 137 MCG tablet TAKE 1 TABLET BY MOUTH EVERY DAY PRIOR TO BREAKFAST 90 tablet 3 12/17/19 25 Active ondansetron (Zofran) 8 MG tabletIndications :Chronic daily headache TAKE 1 TABLET (8 MG) BY MOUTH EVERY 8 HOURS NEEDED FOR NAUSEA AND VOMITING FOR UP TO 7 DAYS 20 tablet 12/17/19 25 Active cetirizine (ZyrTEC) 10 MG tablet TAKE 1 TABLET BY MOUTH EVERY DAY IN THE MORNING 90 tablet 1 12/17/19 25 Active riboflavin (True Vitamin B2) 100 MG tabletIndications :Chronic daily headache Take 1 tablet (100 mg) by mouth Once per day. 90 tablet 3 01/19/20 25 Active Magnesium Oxide -Mg Supplement 400 MG capsuleIndication s:Chronic daily headache Take 400 mg by mouth at bedtime. 90 capsule 3 01/19/20 25 Active cyanocobalamin (Vitamin B-12) 100 MCG tablet Take 1 tablet (100 mcg) by mouth Once per day. 90 tablet 3 01/19/20 25 2025 Active feverfew 100 MG capsule Take 1 capsule (100 mg) by mouth Once per day. 90 capsule 3 01/19/20 25 Active Magnesium Oxide -Mg Supplement 400 MG capsuleIndication s:Chronic daily headache TAKE 1 CAPSULE BY MOUTH ONCE PER DAY. 90 capsule 3 03/30/20 24 2024 Discontinued(R eorder (will not trigger notification to Pharmacy)) riboflavin (True Vitamin B2) 100 MG tabletIndications :Chronic daily headache TAKE 1 TABLET BY MOUTH EVERY DAY 90 tablet 3 03/30/20 24 2024 Discontinued(R eorder (will not trigger notification to Pharmacy)) methylPREDNISolon e (Medrol Dospak) 4 MG tablets 1 PACK/PACKET BY MOUTH DAILY,X6 DAYS,INSTR:A S DIRECTED ON PACKAGE LABELING 09/01/19 25 2024 Discontinued(T herapy completed) riboflavin (Vitamin B-2) 400 MG tabletIndications :Chronic migraine with aura without status migrainosus, not intractable TAKE 1 TABLET BY MOUTH DAILY,X30 DAYS,INSTR:D OSE CHANGE 09/01/19 25 2024 Discontinued(T herapy completed) traMADol (Ultram) 50 MG tablet Take 1 tablet by mouth if needed in the morning and at bedtime for pain. 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 No mention of other underlying causes. - Prescribed riboflavin, magnesium, and vitamin B12 supplements. Recommended taking magnesium at night. Attempted to order feverfew; advised to obtain it over the counter if not available through pharmacy or insurance. Suggested non- pharmacologic interventions including use of peppermint or lavender oil, self-massage of pressure points (temples, between eyes, between thumb and first finger), acupuncture, dark room rest, and cool compresses. Assessment & Plan (10/21/2024 7:17 AM EDT): Patient visibly in pain and tearful on exam. Recommended Zofran in office but she had to pick out hand her daughter at daycare so could not wait. Trial migraine cocktail tonight at home (Tylenol 1000mg, Benadryl 50mg, and Zofran 8mg). If still with same DAVISON and nausea when she awakens, to go to ER for further workup and potential imaging/IV medications. She agrees with this plan. Assessment & Plan (06/17/2024 12:36 PM EST): [...] Avoid NSAIDs use. - Re-refer to GI. Screening for cervical cancer 02/18/2023 Assessment & Plan (02/18/2023 4:19 PM EDT): Pap sent today Severe episode of recurrent major depressive disorder, without psychotic features 02/05/2023 Assessment & Plan (01/18/2025 12:38 PM EDT): PHQ9 positive today, still taking SSRI BH in to see patient today to work on establishing OP therapy Assessment & Plan (03/16/2024 12:08 PM EST): [...] OP services placed on 02/09/23 with [facility] ([phone]). Recommended adding self-care and mindfulness techniques into daily routine. At this time Kasey Mccartney meets criteria for Visit Diagnoses: Problem List Items Addressed This Visit Other Severe episode of recurrent major depressive disorder, without psychotic features (CMS/HCC) Family problems Grief associated with loss of fetus Patient ready to address current needs Yes Strengths include readiness to change PLAN: 1. Follow up with [facility]: Not recommended for follow-up 2. Patient goal [...] protective factors, safety plan, provided [facility] crisis line information. Plan is to referred [...] change PLAN: 1. Follow up with [facility]: Recommended for follow-up: Pt will see clinician for follow-up BE's 2. Patient goal is process the loss of her baby and feel less depressed 3. Behavioral Recommendations a. OP individual therapy referral b. Start SSRIs to treat depression c. Follow-up BE's with clinician d. Incorporate self-care and mindfulness techniques into daily routine Grief associated with loss of fetus 02/05/2023 [...] OP services placed on 02/09/23 with [facility] ([phone]). Recommended adding self-care and mindfulness techniques into daily routine. At this time Kasey M Wiggins Bib meets criteria for Visit Diagnoses: Problem List Items Addressed This Visit Other Severe episode of recurrent major depressive disorder, without psychotic features (CMS/HCC) Family problems Grief associated with loss of fetus Patient ready to address current needs Yes Strengths include readiness to change PLAN: 1. Follow up with [facility]: Not recommended for follow-up 2. Patient goal [...] report. Dicussed protective factors, safety plan, provided [facility] crisis line information. Plan is to referred [...] change PLAN: 1. Follow up with [facility]: Recommended for follow-up: Pt will see clinician [...] after Depo with irregular menses Established with [facility], continue workup there Constipation by delayed [...] gastric empyting study, potentially imaging and colonscopy Rosalinda's thyroiditis 11/21/2021 Hypothyroid 07/24/2021 Assessment & [...] will recheck TSH in 6-8 weeks with commercial carpenter Assessment & Plan (08/07/2022 2:54 PM EDT): [...] her to share her plans with her commercial carpenter. She will use condoms until well controlled [...] Date Resolved Date Pituitary mass 07/15/2024 07/15/2024 Bilateral impacted cerumen 07/30/2023 0 10/21/2024 Assessment & Plan (07/30/2023 3:55 PM EDT): Bilateral ear irrigation completed using a 20mL curve tip syringe filled with 1/2 H2O, 1/2 H2O2 solution. Was able to remove all impacted cerumen. Bilateral tympanic membranes visualized and normal in appearance. Pt tolerated procedure well. Family problems 02/05/2023 10/21/2024 Assessment & Plan (02/22/2023 1:13 PM EDT): Patient addressed depressive symptoms, grief due to losing her baby and family problems. Lack of social supports, severe depression and recent miscarriage are leading to an increase of symptoms. Thoughts of self-harm and history of self- harm in the past per patient's report. Referral for OP services placed on 02/09/23 with [facility] ([phone]). Recommended adding self-care and mindfulness techniques into daily routine. At this time Kasey Mccartney meets criteria for Visit Diagnoses: Problem List Items Addressed This Visit Other Severe episode of recurrent major depressive disorder, without psychotic features (CMS/HCC) Family problems Grief associated with loss of fetus Patient ready to address current needs Yes Strengths include readiness to change PLAN: 1. Follow up with [facility]: Not recommended for follow-up 2. Patient goal is start individual therapy 3. Behavioral Recommendations a. OP BH referral (in progress) b. Incorporate mindfulness techniques and self-care into daily routine c. Continue taking medication to treat anxiety symptoms Encounter for screening exam ination for sexually transmitted disease 08/07/2022 01/18/2025 Encounters Date Type Department Care Team Description 01/18/2025 10:00 AM EDT Office Visit [facility] [address] [place] [phone] Scarlett Berrios MD Chronic daily headache (Primary Dx); Class 1 obesity; Hypothyroidism, unspecified type; Severe episode of recurrent major depressive disorder, without psychotic features (CMS/HCC) 01/18/2025 Travel 01/17/2025 Telephone [facility] [address] [place] [address] [phone] Scarlett Berrios MD Chart Prep 12/19/2024 Telephone [facility] [address] [place] [address] [phone] Brook Delgado, TOÑITO 12/16/2024 Refill [facility] [address] [place] [address] [phone] Ml Mohr FNP 12/16/2024 Refill [facility] [address] [place] [address] [phone] Scarlett Berrios MD Chronic daily headache 12/14/2024 Telephone [facility] [address] [place] [address] Scarlett Berrios MD Nurse Triage 11/23/2024 Refill [facility] [address] [place] [address] Scarlett Berrios MD Anxiety (Primary Dx); Chronic nonintractable headache, unspecified headache type 11/22/2024 Refill [facility] [address] [place] [address] Izabel Sanchez MD 10/21/2024 Refill [facility] [address] [place] [address] Merissa Pinon RN Chronic nonintractable headache, unspecified headache type 10/19/2024 11:30 AM EDT Office Visit [facility] [address] [place] [address] Scarlett Berrios MD Chronic daily headache (Primary Dx); Nausea; Class 1 obesity; Vestibular disequilibrium involving both inner ears; Severe episode of recurrent major depressive disorder, without psychotic features (CMS/HCC); Mass of pineal region 10/19/2024 Travel 10/18/2024 Telephone [facility] [address] [place] [address] Scarlett Berrios MD Chart prep from Last 3 Months Immunizations Immunization Administration Dates Next Due DTaP 12/16/2001, 9,07/13/1998,04/20,1997 HPV, Quadrivalent 12/23/2012,05/08/2011,11/14/19 10 Hep A, ped/adol, 2 dose 01/02/2014,12/23/2012 Hep B, Adolescent or Pediatric 07/13/1998,1997,1997 Hib ([facility]) 02/12/1999, 9,04/20/1998,11/09 IPV 09/02/2001, 9,04/20/1998,11/09 Influenza Injectable [...] is your housing situation today? I have giannifabiana christianson 11/24/[address] you [...] 17 01/18/2025 10:07 AM EDT Oxygen Saturation 99% 09/16/2024 3:56 PM EDT Inhaled Oxygen Concentration - - Weight 83.5 kg (184 lb 2 oz) 01/18/2025 10:07 AM EDT Height 157.5 cm (5' 2 ) 01/18/2025 10:07 AM EDT Body Mass Index 33.68 01/18/2025 10:07 AM EDT Plan of Treatment Health Maintenance Due Date Last Done Comments COVID-19 Vaccine ( season) 2025 05/16/2021, 04/25/2021 Influenza Vaccine (#1) 2025 8, 04/01/2016, 02/27/2015, Additional history exists Family Planning (PISQ) 04/20/2025 04/20/2024 Depression Monitoring 07/18/2025 01/18/2025, 025 Alcohol/Substance Use Screening 09/16/2025 09/16/2024 Disability Screening 09/16/2025 09/16/2024 SDOH Screening 09/16/2025 09/16/2024 Tobacco Screening 01/18/2026 01/18/2025 Pap Smear 02/18/2026 02/18/2023 DTaP/Tdap/Td Vaccines (8 - Td or Tdap) 02/20/2028 02/19/2018, 11/13/2009, 12/16/2001, Additional history exists Lipid Panel 09/16/2029 09/16/2024 Zoster Vaccines (1 of 2) 08/31/2047 RSV Patients and Patients Aged 60 years or older (1 - 1-dose 75+ series) 2072 Hepatitis B Vaccines Completed 07/13/1998, 04/20/1998, 1997 HIB Vaccines Completed 02/12/1999, 09/1998, 04/20/1998, Additional history exists IPV Vaccines Completed 09/02/2001, 09/1998, 04/20/1998, Additional history exists HPV Vaccines Completed 12/23/2012, 04/11, 11/13/2009 Hepatitis A Vaccines Completed 01/02/2014, 12/24/19 13 Meningococcal Vaccine Completed 02/27/2015, 010 HIV Screening Completed 08/06/2022 Hepatitis C Screening Completed 08/06/2022 Meningococcal B Vaccine Aged Out No l onger eligible based on patient's age to complete this topic Pneumococcal Vaccine: Pediatrics (0 to 5 Years) and At-Risk Patients (6 to 49) Years Aged Out No longer eligible based on patient's age to complete this topic RSV under 20 months Aged Out No longe r eligible based on patient's age to complete this topic Rotavirus Vaccines Aged Out No longer eligible based on patient's age to complete this topic Procedures Procedure Name Priority Date/Time Associated Diagnosis Comments HCG, TOTAL, QN Routine 01/18/2025 11:58 AM EDT Chronic daily headache TSH W/REFLEX TO FT4 Routine 01/18/2025 1 1:58 AM EDT Chronic daily headache CBC WITH AUTO DIFFERENTIAL Routine 01/18/2025 11:58 AM EDT Chronic daily headache LIPID PANEL, STANDARD Routine 09/16/2024 4:32 PM EDT Class 1 obesity without serious comorbidity with body mass index (BMI) of 31.0 to 31.9 in adult, unspecified obesity type PAP SMEAR Routine 02/18/2023 4:22 PM EDT HEPATITIS C AB W/REFL TO HCV RNA, QN, PCR Routine 08/06/2022 2:49 PM EDT Encounter for screening examination for sexually transmitted disease HIV 1 RNA, QUANTITATIVE REAL TIME PCR Routine 08/06/2022 2:49 PM EDT Encounter for screening examination for sexually transmitted disease from Last 3 Months or Most Recently Relevant to Health Maintenance Results * (ABNORMAL) TSH W/Reflex to FT4 (01/18/2025 11:58 AM EDT) TSH reflex Free T4 8.03(H) 0.32 - 4.0 uIU/mL [facility] Blood Venous blood specimen / Unknown 01/18/2025 11:58 AM EDT 01/18/2025 1:47 PM EDT us Scarlett Berrios MD LAB BLOOD ORDERABLES Final Res ult [facility] [address] [place] [address] [phone] * CBC auto differential (01/18/2025 11:58 AM EDT) White Blood Count 8.5 4.8 - 10.8 X10*3/uL [facility] Red Blood Count 4.96 4.20 - 5.50 X10*6/uL [facility] Hemoglobin 14.4 12.0 - 16.0 g/dl [facility] Hematocrit 42.2 37.0 - 47.0 % [facility] Mean Corpuscular Volume 85.1 80.0 - 98.0 fL [facility] Mean Corpuscular Hemoglobin 29.0 27.0 - 33.0 pg [facility] Mean Corpuscular HGB Conc 34.1 31.0 - 35.0 g/dl [facility] Red Cell Distribution Width 13.0 11.0 - 16.0 % [facility] Platelet Count 284 160 - 400 X10*3/uL [facility] Mean Platelet Volume 11.6 9.4 - 12.3 fL [facility] Neutrophils Percent Auto 63.0 45 - 73 % [facility] Imm Gran Pct Auto 0.2 0.0 - 0.4 % [facility] Lymphocytes Percent Auto 24.6 20 - 40 % [facility] Monocytes Percent Auto 9.7 2 - 11 % [facility] Eosinophils Percent Auto 1.7 0 - 4 % [facility] Basophils Percent Auto 0.8 0 - 2 % [facility] NRBC Pct Auto 0.0 0.0 - 0.2 /100WBC [facility] Neutrophils Absolute Auto 5.3 2.0 - 8.3 x10*3/uL [facility] Imm Gran Abs Auto 0.02 0.00 - 0.03 X10*3/uL [facility] Lymphocytes Absolute Auto 2.1 1.2 - 4.9 X10*3/uL [facility] Monocytes Absolute Auto 0.8 0.1 - 1.2 X10*3/uL [facility] Eosinophils Absolute Auto 0.1 0.0 - 0.4 X10*3/uL [facility] Basophils Absolute Auto 0.1 0.0 - 0.2 X10*3/uL [facility] NRBC Abs Auto 0.000 0.0 - 0.012 X10*3/uL [facility] Blood Venous blood specimen / Unknown 01/18/2025 11:58 AM EDT 01/18/2025 1:32 PM EDT us Scarlett Berrios MD LAB BLOOD ORDERABLES Final Res ult [facility] [address] [place] [phone] * hCG, Total, Quantitative (01/18/2025 11:58 AM EDT) HCG Quantitative <2 mIU/mL [facility] Comment:Weeks post LMP Appro ximate hCG(Last Menstrual Period) Range (mIU/ml)3 - 4 weeks 9 - 1304 - 5 weeks 75 - 2,6005 - 6 weeks 850 - 20,8006 - 7 weeks 4000 - 100,2007 - 12 weeks 11,500 - 289,62068 - 16 weeks 18,300 - 137,25399 - 29 weeks (2nd trimester) 1,400 - 53,95738 - 41 weeks (3rd trimester) 940 - [...] 11:58 AM EDT 01/18/2025 1:47 PM EDT us Scarlett Berrios MD LAB BLOOD ORDERABLES Final Res ult [facility] [address] [place] [address] [phone] * (ABNORMAL) Lipid Panel, Standard (09/16/2024 4:32 PM EDT) Triglycerides 154(H) <150 mg/dL [facility] Comment:Desirable Triglyceri de: less than 150 mg/dLBorderline High Triglyceride 150-199 mg/dLHigh Triglyceride: 200-499 mg/dLVery High Triglyceride: greater than or equal to 5OO mg/dL Cholesterol 180 <200 mg/dL [facility] Comment:Desirable Cholestero l: less than 200 mg/dLBorderline High Cholesterol: 200-239 mg/dLHigh Cholesterol: greater than 239 mg/dL LDL Cholesterol Calculated 112(H) <100 mg/dL [facility] Comment:Desirable LDL: less than 100 mg/dLNear Optimal/Above Optimal LDL: 110- 129 mg/dLBorderline High LDL: 130-159 mg/dLHigh LDL: 160-189 mg/dLVery High LDL: greater than or equal to 190 mg/dL HDL Cholesterol 38(L) >40 mg/dL [facility] Comment:Desirable HDL: great er than 40 mg/dL Note: This HDL assay may give artificially low results in patients with liver disease. Blood Venous blood specimen / Unknown 09/16/2024 4:32 PM EDT 09/16/2024 5:40 PM EDT us Scarlett Berrios MD LAB BLOOD ORDERABLES Final Res ult [facility] [address] [place] [address] [phone] * Pap Smear (02/18/2023 4:22 PM EDT) 02/18/2023 4:22 PM EDT 02/19/2023 7:20 AM EDT Narrative [facility] - 02/20/2023 9:47 AM EDT ----- ------- Name: Kasey Macdonald Age/Sex: 27/F : 1995 Unit#: [id number] Attend Dr: Scarlett Berrios Re02/18/23 Status: DEP REF Location: HO.HHCLNP Disch: ----- ------- SPEC : [id number] RECD: 02/19/23 STATUS: TANISHA JIMENEZ NUM: [id number] JESSICA: 02/18/[address]: Scarlett Berrios ENTERED: 02/19/23 SP TYPE: Pap Smr OTHR DR: ORDERED: Pap Smear Interpretation Satisfactory for evaluation. Mild inflammation. Negative for intraepithelial lesion or malignancy. Clinical Information LMP: 11/24/2022 Previous PAP test: Unknown date/findings Other history: Post miscarriage Material Received ThinPrep-Cervical ----- ------- Signed (signature on file) JUANITO Ralph (ASCP) 02/20/23 0947 ----- ------- END OF REPORT us Sacrlett Berrios MD LAB CYTOLOGY ORDERABLES Final Result [facility] [address] [place] [address] [phone] * Hepatitis C Antibody with Reflex to HCV, RNA, Quantitative, Real-Time PCR (08/06/2022 2:49 PM EDT) Hepatitis C Antibody NON-REACT GREG NON-REACT GREG [employer] [place] [employer] Index 0.18 <1.00 [employer] [place] [employer] Comment: HCV antibody was non-reactive. There is no laboratory evidence of HCV infection. In most cases, no further action is required. However, if recent HCV exposure is suspected, a test for HCV RNA (test code 25807) is suggested. For additional information please refer to http://education.coUrbanize/faq/NVA23w7 (This link is being provided for informational/ educational purposes only.) Blood Venous blood specimen / Unknown 08/06/2022 2:49 PM EDT 08/06/2022 2:50 PM EDT [address]ative [facility] - 08/08/2022 11:04 AM EDT FASTING:NO FASTING: NO Scarlett Berrios MD LAB BLOOD ORDERABLES Final Res ult Performing Organization Address [facility] Co de Phone Number [facility] [address], [place] [address] [employer] [place] [employer] [address] [place] [phone] * HIV-1 RNA, Quantitative, Real-Time PCR (08/06/2022 2:49 PM EDT) [facility] HIV 1 RNA, QN PCR NOT DETECTED NOT DETECTED copies/mL [employer] [place] [employer] HIV 1 RNA, QN PCR NOT DETECTED NOT DETECTED Log copies/mL [employer] [place] [facility] Comment: This test was performed using Real-Time Polymerase Chain Reaction. Reportable Range: 20 copies/mL to 10,000,000 copies/mL (1.30 log copies/mL to 7.00 log copies/mL). Blood Venous blood specimen / Unknown 08/06/2022 2:49 PM EDT 08/06/2022 2:50 PM EDT [facility] - 08/08/2022 11:04 AM EDT FASTING:NO FASTING: NO Scarlett Berrios MD LAB BLOOD ORDERABLES Final Res ult Performing Organization Address [facility] de Phone Number [facility] [address], [place] [address] [employer] [place] [facility] [address] [place] [phone] from Last 3 Months or Most Recently Relevant to Health Maintenance Insurance * Guarantor: Kasey Macdonald Account Type Relation to Patient Date of Phone Billing Address Personal/Family Self 1995 [address] [place] [address] [facility] C3 Care Teams 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
--- OUTSIDE RECORDS SUMMARY | 2025-01-18 14:51 | XMS_ITS | Encounter Summary ---
Author Organization [employer] [facility] Address [address] [facility] [facility] [address] [place] [address] Care Team Providers Care Financial Aid Administrator Name Role Phone Scarlett Berrios MD Primary Care Provider Encounter Details Date Type Department Care Team (Late st Contact Info) Description 10/01/2022 Orders Only [facility] [address] [place], [place] [phone] Scarlett Berrios MD [address] [place], [place] [phone] Hypothyroidism, unspecified type (Primary Dx) Social History [...] Primary documented in this encounter Care Teams Financial Aid Administrator Relationship Specialty Start Date End Date Scarlett Berrios MD [address] [place] [address] PCP - General Family Medicine 01/02/22 documented as of this encounter
--- OUTSIDE RECORDS SUMMARY | 2025-01-18 14:51 | XMS_ITS | Encounter Summary ---
Author Organization [employer] Address [address] [facility] 7t [place] [address] Care Team Providers Care Thrill Performer Name Role Phone Scarlett Berrios MD Primary Care Provider [phone] Reason for Referral * Consultation (Routine) - Authorized Specialty Diagnoses / Procedures Referred By Cj nielsen Referred To Contact Neurology Diagnoses New daily persistent headache Scarlett Berrios MD [address] [place] [address] Phone: tel: fax: [facility] Neurology [address] [facility] 3rd [address] [place], [place] Phone: tel: fax: Referral ID Status Reason Start Date Expiration Date Visits Requested Visits Authorized [id number] Authorized Specialty Services Required 08/12/2024 08/12/2025 6 6 Encounter Details Date Type Department Care Team (Late st Contact Info) Description 08/11/2024 Orders Only [facility] MEDICINE [address] [place] [address] Scarlett Berrios MD [address] [place] [address] New daily persistent headache (Primary Dx) Social History Tobacco Use Types [...] as of this encounter Plan of Treatment Scheduled Referrals Name Type Priority Associated Diagnoses Orde r Schedule Referral to Neurology Outpatient Referral Routine New daily persistent headache Expected: 08/11/2024 (Approximate), Expires: 08/11/2025 documented as of this encounter Visit Diagnoses Diagnosis New daily persistent headache- Primary documented in this encounter Additional Health Concerns Assessment Noted Time PHQ-9 Depression Total Score: 12 024 2:36 PM EDT documented as of this encounter Care Teams Thrill Performer Relationship Specialty Start Date End Date Scarlett Berrios MD [address] [place] [address] PCP - General Family Medicine 01/02/22 documented as of this encounter
--- OUTSIDE RECORDS SUMMARY | 2025-01-18 14:51 | XMS_ITS | Encounter Summary ---
Author Organization [employer] Address [address] [place] [address] Care Team Providers Care Rock Mason Name Role Phone Scarlett Berrios MD Primary Care Provider [phone] Encounter Details Date Type Department Care Team (Late st Contact Info) Description 07/18/2024 Orders Only [facility] MEDICINE [address] [place], [place] [phone] Scarlett Berrios MD [address] [place] [address] Mass of [facility] (Primary Dx) Social History Tobacco Use [...] Procedure Name Priority Date/Time Associated Diagnosis Comments MRA HEAD W CONTRAST Urgent 07/22/2024 9 :15 AM EDT documented in this encounter Results * MRA Head w/ Contrast (07/22/2024 9:15 AM EDT) Anatomical Region Laterality Modality Head, Neck Magnetic Resonan ce 07/22/2024 9:15 AM EDT Narrative 07/22/2024 10:36 AM EDT [place] [address] Magnetic Resonance Report Signed Patient: Kasey Macdonald MR#: [id number] : 1995 Acct:[id number] Age/Sex: 28 / F ADM Date: 07/22/24 Loc: HO.MRI Attending Dr: Scarlett Berrios MD Ordering Physician: Scarlett Berrios Date of Service: 07/22/24 Procedure(s): MR head/brain w con Accession Number(s): [id number] cc: Scarlett Berrios EXAMINATION: MR BRAIN WITH [...] Raymundo Bartholomew MD 07/22/2024 10:33 AM EDT RP Dictated By: Raymundo Bartholomew MD Signed By: <Electronically signed by Raymundo Bartholomew MD in OV> 07/22/24 1033 DD/ 0915 TD/TT: 07/22/24 1000 Heat Treater Apprentice: Procedure Note Donotuseinterpreter, Image - 07/22/2024 [place] [address] Magnetic Resonance Report Signed Patient: Kasey Macdonald#: [id number] : 1995Acct:[id number] Age/Sex: 28 FADM Date: 07/22/24 Loc: HO.MRI Attending Dr: Scarlett Berrios MD Ordering Physician: Scarlett Berrios Date of Service: 07/22/24 Procedure(s): MR head/brain w con Accession Number(s): [id number] cc: Scarlett Berrios EXAMINATION: MR BRAIN WITH [...] Raymundo Bartholomew MD 07/22/2024 10:33 AM EDT RP Dictated By: Raymundo Bartholomew MD Signed By: <Electronically signed by Raymundo Bartholomew MD in OV> 07/22/24 1033 DD/ 0915 TD/TT: 07/22/24 1000 Heat Treater Apprentice: Scarlett Berrios MD IMG MRI PROCEDURES Final Resul t documented in this encounter Visit Diagnoses Diagnosis Mass of pineal region- Primary documented in this encounter Additional Health Concerns Assessment Noted Time PHQ-9 Depression Total Score: 12 024 2:36 PM EDT documented as of this encounter Care Teams Rock Mason Relationship Specialty Start Date End Date Scarlett Berrios MD [address] [place] [address] PCP - General Family Medicine 01/02/22 documented as of this encounter
--- OUTSIDE RECORDS SUMMARY | 2025-01-18 14:51 | XMS_ITS | Encounter Summary ---
Author Organization [employer] Address [address] [address] [facility] [address] 7[address] [place] [address] Care Team Providers Care Biofuels Processing Technician Name Role Phone Scarlett Berrios MD Primary Care Provider [phone] Reason for Visit * Reason Onset Date Comments Chart Prep 01/17/2025 Encounter Details Date Type Department Care Team ([facility] st Contact Info) Description 01/17/2025 Telephone [facility] MEDICINE [address] [place] [address] Scarlett Berrios MD [address] [place] [address] Chart Prep Social History Tobacco Use Types Packs/Day Years Used Date Smoking Tobacco: Never Smokeless Tobacco: Never Alcohol Use Standard Drinks/Week Comments Never 0 [...] encounter Miscellaneous Notes * Telephone Encounter - Richa Schaefer [place] - 01/17/2025 1:59 PM EDT Chart Prep Labs: not applicable Images: not applicable Referrals: not applicable Vaccines due: Covid and Flu Screenings: LMP Overdue care gaps: Oral health screening documented in this encounter Plan of Treatment Not on file documented as of this encounter Visit Diagnoses Not on filedocumented in this encounter Additional Health Concerns Assessment Noted Time PHQ-9 Depression Total Score: 22 025 4:29 PM EDT documented as of this encounter Care Teams Biofuels Processing Technician Relationship Specialty Start Date End Date Scarlett Berrios MD [address] [place] [address] PCP - General Family Medicine 01/02/22 documented as of this encounter
--- OUTSIDE RECORDS SUMMARY | 2025-01-18 14:51 | XMS_ITS | Encounter Summary ---
Author Organization [employer] [facility] Address [address] [facility] 7t [place] [address] Care Team Providers Care Personal Care Home Administrator Name Role Phone Scarlett Berrios MD Primary Care Provider [phone] Encounter Details Date Type Department Care Team (Late st Contact Info) Description 10/01/2022 Orders Only [facility] MEDICINE [address] [place], [place] [phone] Scarlett Berrios MD [address] [place], [place] [phone] Hypothyroidism, unspecified type (Primary Dx) Social History [...] Primary documented in this encounter Care Teams Personal Care Home Administrator Relationship Specialty Start Date End Date Scarlett Berrios MD [address] [place] [address] PCP - General Family Medicine 01/02/22 documented as of this encounter
--- OUTSIDE RECORDS SUMMARY | 2025-01-18 14:51 | XMS_ITS | Encounter Summary ---
Author Organization [employer] Address [address] [facility] [address] [place] [address] Care Team Providers Care Angiography Nurse Name Role Phone Scarlett Berrios MD Primary Care Provider [phone] Encounter Details Date Type Department Care Team (Latest Contact Info) Description 01/18/2025 Travel Social History Tobacco Use Types Packs/Day Years Used Date Smoking Tobacco: Never Passive Smoke Exposure: Never Smokeless Tobacco: Never Alcohol Use Standard [...] AM EDT documented as of this encounter Functional Status * Over the [...] 10:09 AM EDT Lisa Loera [place] * Moving or speaking [...] 10:09 AM EDT Lyric Loera MA * Patient Health Questionnaire-9 [...] Loera [place] documented as of this encounter Plan of Treatment Not on file documented as of this encounter Visit Diagnoses Not on filedocumented in this encounter Additional Health Concerns Assessment Noted Time PHQ-9 Depression Total Score: 18 025 10:09 AM EDT documented as of this encounter Care Teams Angiography Nurse Relationship Specialty Start Date End Date Scarlett Berrios MD [address] [place] [phone] PCP - General Family Medicine 01/02/22 documented as of this encounter
--- OUTSIDE RECORDS SUMMARY | 2025-01-18 14:51 | XMS_ITS | Clinical Summary ---
Author Organization [facility] ity Address [address] [place] [address] Care Team Providers Care Kalsominer Name Role Phone Amaury Jones MD Primary Care Provider [phone] Medical History Medical History Date Comments Scoliosis [...] Health Maintenance Due Date Last Done Comments Hepatitis B Vaccines (1 of 3 - 19+ 3-dose series) 2016 Cervical Cancer Screening: P ap Smear 12/06/2021 12/06/2018, 12/06/2018 HIV Screening 04/13/2022 Hepatitis C Screening 04/13/2022 Social Influencers of Health Screening 04/13/2022 Depression Screening 05/11/2024 COVID-19 Vaccine (1 - 4-2 5 season) 2025 Influenza Vaccine (#1) 2025 02/19/2018 DTaP,Tdap,and Td Vaccines (2 - Td or Tdap) 02/20/2028 02/19/2018 HIB Vaccines Aged Out No longer eligi ble based on patient's age to complete this topic HPV Vaccines Aged Out No longer eligi ble [...] age to complete this topic Meningococcal B Vaccine Aged Out No l onger eligible based on patient's age to complete this topic Pneumococcal Vaccine: Pediatrics (0 to 5 Years) and At-Risk Patients (6 to 49 Years) Aged Out No longer eligible b [...] RESULTING AGENCY - 12/08/2018 3:56 PM EDT [id number] THINPREP PAP, IMAGED: NEGATIVE FOR SQUAMOUS INTRAEPITHELIAL LESION AND MALIGNANCY . ABUNDANT RED BLOOD CELLS ARE PRESENT. JUANITO MCMAHAN(ASCP) (CASE ELECTRONICALLY SIGNED 12 08 2018) RESULT OF APTIMA HIGH RISK HPV ASSAY: HIGH RISK HPV: NEGATIVE (SEROTYPES 16,18,31,33,35,39,45,51,52,56,58,59,66,68) COMPLETED ON 2018-12-08 ADEQUACY: SATISFACTORY ENDOCERVICAL/TRANSFORMATION ZONE COMPONENT PRESENT. SOURCE: THINPREP PAP HPV ANY DX: REFLEX 16 AND 18, CERVICAL, IMAGED CLINICAL INFORMATION: HPV ANY DIAGNOSIS. Z12.4, Z01.419, LMP 10/17/2018, PAP HX: NEGATIVE; NEVER HAD PAP us [facility] CYTOLOGY ORDERABLES Final Result HISTORICAL TESTING LAB RESULTING AGENCY from Last 3 Months or Most Recently Relevant to Health Maintenance Care Teams Kalsominer Relationship Specialty Start Date End Date Amaury Jones MD [address] [place] [address] PCP - General 08/20/18
--- OUTSIDE RECORDS SUMMARY | 2025-01-18 14:51 | XMS_ITS | Encounter Summary ---
Author Organization [employer] Address [address] [facility] [address] 7[address] [place] [address] Care Team Providers Care Research Coordinator Name Role Phone Scarlett Berrios MD Primary Care Provider [phone] Reason for Visit * Reason Onset Date Comments Referral 07/05/2024 Encounter Details Date Type Department Care Team ([facility] st Contact Info) Description 07/05/2024 Telephone [facility] MEDICINE [address] [place], [place] [phone] Scarlett Berrios MD [address] [place], [place] [phone] Referral Social History Tobacco Use Types Packs/Day [...] as soon as possible. Contact pt at [phone] * Telephone Encounter - Yifan Chalino - 07/05/2024 12:00 PM EST Tc from pt requesting New Location for referral on 06/29/24 Due to the [facility] not being Able to do whatthe referral was intended for. Contact pt at [phone] documented in this encounter Plan of Treatment Not on file documented as of this encounter Visit Diagnoses Not on filedocumented in this encounter Additional Health Concerns Assessment Noted Time PHQ-9 Depression Total Score: 12 024 2:36 PM EDT documented as of this encounter Care Teams Research Coordinator Relationship Specialty Start Date End Date Scarlett Berrios MD [address] [place] [address] PCP - General Family Medicine 01/02/22 documented as of this encounter
[2025-01-18 15:26] LABS: Free T4 (Free Thyroxine) 0.95 ng/dL (0.71-1.85)
== END 2025-01-18 11:39 | disposition home or self-care (01) ==
LOC: HO.HHCL 11:38
PROVIDERS: PCP General Practice; Visit Provider General Practice
DX: R51.9 Headache, unspecified (principal)
CPT/HCPCS: 36415; 84439; 84443; 84702; 85025